=== PATIENT | male | born 1935 | race Caucasian/White ===

== ENCOUNTER 2017-01-27 13:22 | Inpatient (IN) | payer MEDICARE, OTHER ==
[~2017-01-27] VITALS: Ht 172.7 cm; Wt 61.0 kg
--- NOTE | 2017-01-27 13:51 | EKG ---
[address] [address] Test Date: 2017-01-27 Test Time: 13:45:03 Pat Name: ANTONIO MARSH Department: Room: Gender: M Numerologist: NEGRO : 1935 Requested By: TINY APONTE Order Number: [id number] Reading MD: Albert White Measurements Intervals [place] Rate: 67 P: 60 TX: 164 QRS: -64 QRSD: 108 T: 49 QT: 440 QTc: 468 Interpretive Statements SINUS RHYTHM RBBB NON-SPECIFIC ST/T CHANGES LAD Electronically Signed On 02-19-2017 8:57:12 CDT by Albert White
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
[2017-01-27 14:05] LABS: BILIRUBIN,URINE NEG (NEG); CLARITY,URINE CLEAR; COLOR,URINE YELLOW; GLUCOSE,URINE NEG (NEG)
[2017-01-27 14:06] LABS: BACTERIA,URINE 0 /HPF (0-FEW); NITRITE,URINE NEG (NEG); SQUAMOUS EPITHELIAL CELL,UR OCC /LPF; UROBILINOGEN,URINE 0.2 mg/dL (0.2 mg/dL); WBC,URINE 0 /HPF (0-4)
[2017-01-27 14:11] LABS: AMPHETAMINE/METHAMPHETAMINE NEG (NEG); BARBITURATES NEG (NEG); BENZODIAZEPINES NEG (NEG); CANNABINOIDS NEG (NEG); COCAINE NEG (NEG); METHADONE NEG (NEG); OPIATES NEG (NEG); PHENCYCLIDINE NEG (NEG)
[2017-01-27 14:24] LABS: BASO % 0 % (0-3); CALCIUM 9.1 mg/dL (8.5-10.1); EOS # 0.2 x10^3/uL (0.0-0.7); EOS % 2 % (0-3); GFR 71.9; HEMATOCRIT 36.9 % (39.0-53.0); HEMOGLOBIN 11.3 g/dL (13.0-17.5); LYMPH # 3.6 x10^3/uL (1.0-4.8); LYMPH % 32 % (24-48); MEAN CORPUSCULAR HEMOGLOBIN 23 pg (25-35); MEAN CORPUSCULAR HGB CONC 31 g/dL (31-37); MEAN CORPUSCULAR VOLUME 74 fL (79-100); MONO # 0.5 x10^3/uL (0.0-1.1); MONO % 4 % (0-9); NEUT % 62 % (31-73); PLATELET COUNT 320 x10^3/uL (140-400); POTASSIUM 4.8 mmol/L (3.5-5.1); RED BLOOD COUNT 4.96 x10^6/uL (4.30-5.70); RED CELL DISTRIBUTION WIDTH 20.9 % (11.5-14.5); WHITE BLOOD COUNT 11.4 x10^3/uL (4.0-11.0)
--- NOTE | 2017-01-27 14:36 | RAD ---
EXAM: Left hand, 3 views. HISTORY: Pain. COMPARISON: None. FINDINGS: Frontal, lateral and oblique views of the left hand are obtained. There is no acute fracture, dislocation or subluxation. No foreign body is seen. IMPRESSION: No acute osseous finding.
[2017-01-27] MEDS ORDERED: ACETAMINOPHEN 325 MG TABLET PO PRN (15:00)
[2017-01-27] MEDS ORDERED: CLOP75TA27 PO (15:26)
[2017-01-27] MEDS ORDERED: MAG HYDROX/AL HYDROX/SIMETH 30 ML ORAL.SUSP PO PRN (15:30)
[2017-01-27] MEDS ORDERED: METHYL SALICYLATE/MENTHOL TOPICAL OINTMENT 29GM TUBE. TP PRN (15:30)
[2017-01-27] MEDS ORDERED: MAGNESIUM HYDROXIDE 2,400 MG/30 ML ORAL.SUSP. PO PRN (15:30)
[2017-01-27] MEDS ORDERED: FINA5TAB4 PO (15:36)
[2017-01-27] MEDS ORDERED: ASCO10002 PO (15:36)
[2017-01-27] MEDS ORDERED: METO50TA2 PO (15:36)
[2017-01-27] MEDS ORDERED: MECL25TA3 PO (15:39)
[2017-01-27] MEDS ORDERED: CLON0.5T3 PO (15:39)
[2017-01-27] MEDS ORDERED: ESCI10TA10 PO (15:41)
[2017-01-27] MEDS ORDERED: TRAM50TA PO (15:41)
[2017-01-27] MEDS ORDERED: PANT40TA5 PO (15:44)
[2017-01-27] MEDS ORDERED: ONDA4TAB7 PO (15:44)
[2017-01-27] MEDS ORDERED: ACET500T68 PO (15:44)
[2017-01-27] MEDS ORDERED: duoneb NEB (15:52)
[2017-01-27] MEDS ORDERED: VIT D PO (15:52)
[2017-01-27] MEDS ORDERED: CLONAZEPAM 0.5 MG TABLET PO PRN ×2 (16:00)
[2017-01-27] MEDS ORDERED: ACETAMINOPHEN 500 MG TABLET PO PRN (16:00)
[2017-01-27 16:15] VITALS: BP 126/78
[2017-01-27 16:17] LABS: ANISOCYTOSIS MOD; HYPOCHROMIA MOD; PLT ESTIMATE ADEQUATE (ADEQUATE); POLYCHROMASIA SLIGHT
[2017-01-27 16:18] LABS: OVALOCYTES OCC
[2017-01-27] MEDS ORDERED: IPRATRPIUM/ALBUTEROL 0.5/2.5MG 3 ML NEBU. ONE (16:35)
[2017-01-27] MEDS ORDERED: ONDANSETRON ODT 4 MG TAB.RAPDIS PO PRN (16:45)
[2017-01-27] MEDS ORDERED: DUONEB NEB SCH (17:00)
[2017-01-27] MEDS ORDERED: TIMO10DR5 EACHEYE (19:46)
[2017-01-27] MEDS: IPRATRPIUM/ALBUTEROL 0.5/2.5MG 3 ML NEBU. NEB SCH (20:00)
[2017-01-27] MEDS: MECLIZINE 25 MG TABLET PO SCH (20:14)
[2017-01-27] MEDS: PANTOPRAZOLE 40 MG TABLET. PO SCH (20:14)
--- NOTE | 2017-01-27 22:03 | PDOC ---
Exam Davon Demential Exam: Davon Note: Please also refer to the separate dictated note~for this date of service dictated separately.~Patient seen individually. Discussed the patient with Nursing staff reviewed the chart.~Reviewed interim history and current functioning. Reviewed vital signs,~Labs/ Radiology~and current medications noted below. Continue current treatment with the changes noted in the dictated addendum note Assessment: Vital Signs: Vital Signs Date Time Temp Pulse Resp B/P Pulse Ox O2 Delivery O2 Flow Rate FiO2 01/27/17 20:00 97 Room Air 01/27/17 16:15 98.4 67 18 126/78 2.0 Labs: Laboratory Tests Test 01/27/17 13:38 01/27/17 13:42 Urine Collection Type Unknown Urine Color Yellow Urine Clarity Clear Urine pH 6.5 Urine Specific [place] 1.010 Urine Protein Neg (NEG-TRACE) Urine Glucose (UA) Negmg/dL (NEG) Urine Ketones (Stick) Negmg/dL (NEG) Urine Blood Trace (NEG) Urine Nitrite Neg (NEG) Urine Bilirubin Neg (NEG) Urine Urobilinogen Dipstick 0.2mg/dL (0.2 mg/dL) Urine Leukocyte Esterase Neg (NEG) Urine RBC 1-2/HPF (0-2) Urine WBC 0/HPF (0-4) Urine Squamous Epithelial Cells Occ/LPF Urine Bacteria 0/HPF (0-FEW) Urine Mucus Mod/LPF Urine Opiates Screen Neg (NEG) Urine Methadone Screen Neg (NEG) Urine Barbiturates Neg (NEG) Urine Phencyclidine Screen Neg (NEG) Urine Amphetamine/Methamphetamine Neg (NEG) Urine Benzodiazepines Screen Neg (NEG) Urine Cocaine Screen Neg (NEG) Urine Cannabinoids Screen Neg (NEG) Urine Ethyl Alcohol Neg (NEG) White Blood Count 11.4x10^3/uL (4.0-11.0) H Red Blood Count 4.96x10^6/uL (4.30-5.70) Hemoglobin 11.3g/dL (13.0-17.5) L Hematocrit 36.9% (39.0-53.0) L Mean Corpuscular Volume 74fL (79-100) L Mean Corpuscular Hemoglobin 23pg (25-35) L Mean Corpuscular Hemoglobin Concent 31g/dL (31-37) Red Cell Distribution Width 20.9% (11.5-14.5) H Platelet Count 320x10^3/uL (140-400) Neutrophils (%) (Auto) 62% (31-73) Lymphocytes (%) (Auto) 32% (24-48) Monocytes (%) (Auto) 4% (0-9) Eosinophils (%) (Auto) 2% (0-3) Basophils (%) (Auto) 0% (0-3) Neutrophils # (Auto) 7.0x10^3uL (1.8-7.7) Lymphocytes # (Auto) 3.6x10^3/uL (1.0-4.8) Monocytes # (Auto) 0.5x10^3/uL (0.0-1.1) Eosinophils # (Auto) 0.2x10^3/uL (0.0-0.7) Basophils # (Auto) 0.0x10^3/uL (0.0-0.2) Platelet Estimate Adequate (ADEQUATE) Polychromasia Slight Hypochromasia Mod Anisocytosis Mod Ovalocytes Occ Sodium Level 144mmol/L (136-145) Potassium Level 4.8mmol/L (3.5-5.1) Chloride Level 107mmol/L (98-107) Carbon Dioxide Level 30mmol/L (21-32) Anion Gap 7 (6-14) Blood Urea Nitrogen 10mg/dL (8-26) Creatinine 1.0mg/dL (0.7-1.3) Estimated GFR (Cockcroft-Gault) 71.9 Glucose Level 106mg/dL (70-99) H Calcium Level 9.1mg/dL (8.5-10.1) Magnesium Level 2.3mg/dL (1.8-2.4) Troponin I Quantitative < 0.017ng/mL (0-0.055) TJ-Kux-M-Type Natriuretic Peptide 353pg/mL (0-449) Current Medications: Meds: Current Medications Acetaminophen (Tylenol) 650 mg PRN Q6HRS PRN PO PAIN / TEMP; Start 01/27/17 at 15:00; Status Cancel Multi-Ingredient Ointment (Analgesic [place]) 1 aleks PRN QID PRN TP MUSCLE PAIN; Start 01/27/17 at 15:30 Al Hydroxide/Mg Hydroxide (Mylanta Plus Xs) 15 ml PRN AFTMEALHC PRN PO DYSPEPSIA; Start 01/27/17 at 15:30 Magnesium Hydroxide (Milk Of Magnesia) 2,400 mg PRN QHS PRN PO CONSTIPATION; Start 01/27/17 at 15:30 Acetaminophen (Tylenol) 1,000 mg PRN Q6HRS PRN PO PAIN / TEMP; Start 01/27/17 at 16:00 Clonazepam (Klonopin) 0.25 mg PRN Q6HRS PRN PO ANXIETY / AGITATION; Start at 16:00 Clonazepam (Klonopin) 0.5 mg PRN Q6HRS PRN PO ANXIETY / AGITATION; Start at 16:00 Clopidogrel Bisulfate (Plavix) 75 mg DAILY PO ; Start 01/28/17 at 09:00 Escitalopram Oxalate (Lexapro) 10 mg DAILY PO ; Start 01/28/17 at 09:00 Finasteride (Proscar) 5 mg DAILY PO ; Start 01/28/17 at 09:00 Meclizine HCl (Antivert) 25 mg TID PO Last administered on 01/27/17t 20:14; Start 01/27/17 at 21:00 Metoprolol Succinate (Toprol Xl) 50 mg DAILY PO ; Start 01/28/17 at 09:00 Pantoprazole Sodium (Protonix) 40 mg BID PO Last administered on 01/27/17t 20:14 ; Start 01/27/17 at 21:00 Tramadol HCl (Ultram) 50 mg PRN Q6HRS PRN PO PAIN; Start 01/27/17 at 16:00 Ascorbic Acid (Vitamin C) 1,000 mg DAILY PO ; Start 01/28/17 at 09:00 Ondansetron HCl (Zofran Odt) 4 mg PRN Q6HRS PRN PO NAUSEA/VOMITING; Start at 16:45 Non-Formulary Medication 5 mg QID NEB ; Start 01/27/17 at 17:00; Status UNV Vitamin D (Vitamin D3) 400 unit DAILY PO ; Start 01/28/17 at 09:00 Albuterol/ Ipratropium (Duoneb) 3 ml STK-MED ONCE .ROUTE ; Start 01/27/17 at 16: 35; Stop 01/27/17 at 16:36; Status DC Albuterol/ Ipratropium (Duoneb) 3 ml RTQID NEB Last administered on 01/27/17t 20 :00; Start 01/27/17 at 20:00 Timolol Maleate (Timoptic 0.5% Ophth) 1 drop BID OU ; Start 01/28/17 at 09:00 Active Scripts Active Reported Timoptic (Timolol Maleate) 10 Ml Drops 1 Drop EACHEYE BID [duoneb] 5 Mg NEB QID [Vit D3 400units] 400 Units PO Acetaminophen 500 Mg Tablet 1,000 Mg PO PRN Q6HRS PRN Pantoprazole Sodium 40 Mg Tablet.dr 40 Mg PO BID Zofran (Ondansetron Hcl) 4 Mg Tablet 4 Mg PO PRN Q6HRS PRN Tramadol Hcl (Tramadol HCl) 50 Mg Tablet 50 Mg PO PRN Q6HRS PRN Lexapro (Escitalopram Oxalate) 10 Mg Tablet 10 Mg PO DAILY Meclizine Hcl 25 Mg Tablet 25 Mg PO TID Clonazepam 0.5 Mg Tablet 0.25 Mg PO PRN Q6HRS PRN Clonazepam 0.5 Mg Tablet 0.5 Mg PO PRN Q6HRS PRN Vitamin C (Ascorbic Acid) 1,000 Mg Tablet 1,000 Mg PO DAILY Finasteride 5 Mg Tablet 5 Mg PO DAILY Metoprolol Tartrate 50 Mg Tablet 50 Mg PO DAILY Plavix (Clopidogrel Bisulfate) 75 Mg Tablet 75 Mg PO DAILY Diagnosis: Problems: (1) Dementia with behavioral problem (2) Gamekeeper's thumb of left hand JIM MCKEON MD Jan 27, 2017 22:03
[2017-01-27] MEDS: TRAMADOL 50 MG TABLET. PO PRN (23:30)
--- NOTE | 2017-01-28 00:57 | ACF ---
Admission Criteria Forms PSYCHIATRIC DISORDERS Clinical Indications for Inpatient Care (Place 'X' for any and all applicable criteria): Ongoing inpatient care may be needed for ANY ONE of the following(1)(2)(3)(4)(6) (7)(8): [ ]I. Danger to self or others not manageable at lower level of care. [ ]II. Grave disability (eg, inability to perform self care necessary at lower level of care) [ ]III. Agitation or inappropriate behavior interfering with care for primary condition (eg, attempting to discontinue lines or drains prematurely, unable to cooperate with respiratory care) [X]IV. Severe disability or disorder indicated by ALL of the following: [X]a) Severe behavioral health disorder-related symptoms or condition indicated by ANY ONE of the following: [ ]i) Severe problem with cognition, memory, judgment, or impulse control [X]ii) Severe clinical manifestations (eg, hallucinations, delusions, other acute psychotic symptoms, jeremiah, extreme agitation or anxiety) [X]b) Patient management at lower level of care is not feasible until acute intervention or modification is initiated. Extended stay beyond goal length of stay for the primary condition may be indicated when ANY ONE of the following is present: (1)(2)(3)(4): [ ]a) Patient is a danger to self or others and not manageable at lower level of care. [ ]b) Behavior crisis management, including physical or chemical restraints, is required and is not available at a lower level of care. [ ]c) Behavioral symptoms (e.g., agitation, somnolence, inappropriate behavior) are present, and are not manageable at a lower level of care. [ ]d) Patient cannot understand follow-up treatment and crisis plan. [ ]e) Provider and supports are not sufficiently available at lower level of care. [ ]f) Patient cannot participate (e.g., verify absence of plan for harm) and is in needed of monitoring. The original [facility] [employer] content created by [facility] [employer] has been revised. The portions of the content which have been revised are identified through the use of italic text or in bold, and [email or web address] has neither reviewed nor approved the modified material. All other unmodified content is copyright [facility]. Please see references footnoted in the original [facility] edition 2016 Admission Criteria Met?: Yes STEVEN MORA Jan 28, 2017 00:57
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
[2017-01-28] MEDS: IPRATRPIUM/ALBUTEROL 0.5/2.5MG 3 ML NEBU. NEB SCH ×4 (05:14→20:13)
[2017-01-28 06:21] VITALS: BP 127/78
[2017-01-28] MEDS: TIMOLOL 0.5% OPHTH SOLUTION 5ML BOTTLE. OU SCH ×2 (09:36→19:50)
[2017-01-28] MEDS: ESCITALOPRAM 10 MG TABLET. PO SCH (09:36)
[2017-01-28] MEDS: MECLIZINE 25 MG TABLET PO SCH ×3 (09:36→19:47)
[2017-01-28] MEDS: CLOPIDOGREL BISULFATE 75 MG TABLET PO SCH (09:37)
[2017-01-28] MEDS: FINASTERIDE 5 MG TABLET PO SCH (09:37)
[2017-01-28] MEDS: PANTOPRAZOLE 40 MG TABLET. PO SCH ×2 (09:37→19:47)
[2017-01-28] MEDS: CHOLECALCIFEROL (VITAMIN D3) 400 UNIT TABLET PO SCH (09:39)
[2017-01-28] MEDS: METOPROLOL SUCC 24HR ER 50 MG TAB.ER.24H. PO SCH (09:39)
[2017-01-28] MEDS: ASCORBIC ACID 500 MG TABLET PO SCH (09:39)
[2017-01-28] MEDS: TRAMADOL 50 MG TABLET. PO PRN ×2 (09:50→21:14)
[2017-01-28 12:09] LABS: T3 TOTAL 125 ng/dL (71-180); THYROXINE 7.7 ug/dL (4.5-12.0)
[2017-01-28 12:19] LABS: IRON,SERUM 23 ug/dL (65-175)
[2017-01-28 12:24] LABS: THYROID STIM HORMONE (TSH) 0.956 uIU/mL (0.358-3.740)
[2017-01-28 15:49] VITALS: BP 108/65
--- NOTE | 2017-01-28 20:44 | PDOC ---
Exam Davon Demential Exam: Davon Note: Please also refer to the separate dictated note~for this date of service dictated separately.~Patient seen individually. Discussed the patient with Nursing staff reviewed the chart.~Reviewed interim history and current functioning. Reviewed vital signs,~Labs/ Radiology~and current medications noted below. Continue current treatment with the changes noted in the dictated addendum note Assessment: Vital Signs: Vital Signs Date Time Temp Pulse Resp B/P Pulse Ox O2 Delivery O2 Flow Rate FiO2 01/28/17 20:15 99 Nasal Cannula 2.0 01/28/17 15:49 97.9 71 19 108/65 I&O Intake and Output 01/28/17 07:00 Intake Total 60 ml Balance 60 ml Intake Oral 60 ml Current Medications: Meds: Current Medications Acetaminophen (Tylenol) 650 mg PRN Q6HRS PRN PO PAIN / TEMP; Start 01/27/17 at 15:00; Status Cancel Multi-Ingredient Ointment (Analgesic [place]) 1 aleks PRN QID PRN TP MUSCLE PAIN; Start 01/27/17 at 15:30 Al Hydroxide/Mg Hydroxide (Mylanta Plus Xs) 15 ml PRN AFTMEALHC PRN PO DYSPEPSIA; Start 01/27/17 at 15:30 Magnesium Hydroxide (Milk Of Magnesia) 2,400 mg PRN QHS PRN PO CONSTIPATION; Start 01/27/17 at 15:30 Acetaminophen (Tylenol) 1,000 mg PRN Q6HRS PRN PO PAIN / TEMP; Start 01/27/17 at 16:00 Clonazepam (Klonopin) 0.25 mg PRN Q6HRS PRN PO ANXIETY / AGITATION; Start at 16:00 Clonazepam (Klonopin) 0.5 mg PRN Q6HRS PRN PO ANXIETY / AGITATION; Start at 16:00 Clopidogrel Bisulfate (Plavix) 75 mg DAILY PO Last administered on 01/28/17 09: 37; Start 01/28/17 at 09:00 Escitalopram Oxalate (Lexapro) 10 mg DAILY PO Last administered on 01/28/17 09: 36; Start 01/28/17 at 09:00 Finasteride (Proscar) 5 mg DAILY PO Last administered on 01/28/17 09:37; Start 01/28/17 at 09:00 Meclizine HCl (Antivert) 25 mg TID PO Last administered on 01/28/17 19:47; Start 01/27/17 at 21:00 Metoprolol Succinate (Toprol Xl) 50 mg DAILY PO Last administered on 01/28/17 09:39; Start 01/28/17 at 09:00 Pantoprazole Sodium (Protonix) 40 mg BID PO Last administered on 01/28/17 19:47 ; Start 01/27/17 at 21:00 Tramadol HCl (Ultram) 50 mg PRN Q6HRS PRN PO PAIN Last administered on 09:50; Start 01/27/17 at 16:00 Ascorbic Acid (Vitamin C) 1,000 mg DAILY PO Last administered on 01/28/17 09:39 ; Start 01/28/17 at 09:00 Ondansetron HCl (Zofran Odt) 4 mg PRN Q6HRS PRN PO NAUSEA/VOMITING; Start at 16:45 Non-Formulary Medication 5 mg QID NEB ; Start 01/27/17 at 17:00; Status UNV Vitamin D (Vitamin D3) 400 unit DAILY PO Last administered on 01/28/17 09:39; Start 01/28/17 at 09:00 Albuterol/ Ipratropium (Duoneb) 3 ml STK-MED ONCE .ROUTE ; Start 01/27/17 at 16: 35; Stop 01/27/17 at 16:36; Status DC Albuterol/ Ipratropium (Duoneb) 3 ml RTQID NEB Last administered on 01/28/17 20 :13; Start 01/27/17 at 20:00 Timolol Maleate (Timoptic 0.5% Oph) 1 drop BID OU Last administered on 19:50; Start 01/28/17 at 09:00 Active Scripts Active Reported Timoptic (Timolol Maleate) 10 Ml Drops 1 Drop EACHEYE BID [duoneb] 5 Mg NEB QID [Vit D3 400units] 400 Units PO Acetaminophen 500 Mg Tablet 1,000 Mg PO PRN Q6HRS PRN Pantoprazole Sodium 40 Mg Tablet.dr 40 Mg PO BID Zofran (Ondansetron Hcl) 4 Mg Tablet 4 Mg PO PRN Q6HRS PRN Tramadol Hcl (Tramadol HCl) 50 Mg Tablet 50 Mg PO PRN Q6HRS PRN Lexapro (Escitalopram Oxalate) 10 Mg Tablet 10 Mg PO DAILY Meclizine Hcl 25 Mg Tablet 25 Mg PO TID Clonazepam 0.5 Mg Tablet 0.25 Mg PO PRN Q6HRS PRN Clonazepam 0.5 Mg Tablet 0.5 Mg PO PRN Q6HRS PRN Vitamin C (Ascorbic Acid) 1,000 Mg Tablet 1,000 Mg PO DAILY Finasteride 5 Mg Tablet 5 Mg PO DAILY Metoprolol Tartrate 50 Mg Tablet 50 Mg PO DAILY Plavix (Clopidogrel Bisulfate) 75 Mg Tablet 75 Mg PO DAILY Diagnosis: Problems: (1) Dementia with behavioral problem (2) Gamekeeper's thumb of left hand JIM MCKEON MD Jan 28, 2017 20:43
--- NOTE | 2017-01-28 22:20 | HP ---
ADMIT DATE: 01/27/2017 PSYCHIATRIC ADMISSION HISTORY/EVALUATION IDENTIFYING DATA: The patient is an 81-year-old male referred to us from home by his primary care physician, Dr. Clarke Aguirre in [facility] on account of worsening hallucinations, which are ordered ____ and visual worsening anxiety over the last 30 days, worsening mood, vacillation, visual misperceptions, anxiety, agitation, and having failed outpatient psychiatric interventions. 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 The patient was seen individually evening of 01/28/2017 for this assessment. Reviewed records from intermediate, current and past information ER records. CHIEF COMPLAINT: "At sometimes he sees floor moving or the wall moving or the table moving. It makes me upset." HISTORY OF PRESENT ILLNESS: The patient has had a history of CVA in 2003 with the diagnosis of dementia. More recently he has been living at home, having ____ visual hallucinations, anxiety over the past 30 days with marked mood vacillation, failure of outpatient psychiatric interventions. No clear history of bipolar disorder. PAST PSYCHIATRIC HISTORY: As above. MEDICAL HISTORY: Status post cerebrovascular accident in 2003, COPD, history of duodenal ulcer, GERD, lung nodule, BPH, hyperlipidemia, leukemia, and CHF. DRUG ALLERGIES: Negative. CODE STATUS: He is a DNR status. The patient was seen in the [facility] Emergency Room prior to admission found to medically stable to be on our unit. CURRENT PSYCHOTROPICS: Lexapro 10 mg a day, Klonopin 0.25 mg q .6 hours p.r.n. anxiety. FAMILY HISTORY: Noncontributory. SOCIAL HISTORY: The patient states he is to use excessive alcohol mostly beer in the past up to 18 cans a day, but denies any DUIs or delirium in the past. No street drug abuse. MENTAL STATUS EXAM: The patient was seen individually evening of 01/28/2017. He was aware of the date, the year, where he was, anxious, restless. Speech is coherent, abstraction fair, computation impaired, language function intact. Attention span short. Short-term memory does have some deficit, but he is reasonably oriented. No active suicidal or homicidal ideation. PHYSICAL EXAMINATION: VITAL SIGNS: Temperature 97.9, pulse 71, BP 108/65. REVIEW OF SYSTEMS: Ambulation impaired. No CV, , pulmonary, eye system symptoms on review. IMPRESSION: Psychotic disorder, unspecified; major depressive disorder with psychotic features; major neurocognitive disorder, early vascular with depression, delusions; anxiety disorder, unspecified; impulse control disorder, unspecified. Rest diagnoses as above. PLAN: Admit to the geropsychiatry unit at [facility]. I will see the patient daily individually from a psychiatric standpoint and medical followup with Dr. Murphy/Dr. Lee. Continue the patient on his current psychotropics, observe baseline then we will adjust psychotropics as clinically indicated. MAN Angelica MCKEON MD DR: JUAN/betsy JOB#: [id number] / [id number]
[2017-01-29 00:08] LABS: HEMOGLOBIN A1C 5.5 % (4.8-5.6)
[2017-01-29] MEDS: IPRATRPIUM/ALBUTEROL 0.5/2.5MG 3 ML NEBU. NEB SCH ×4 (04:51→19:32)
[2017-01-29 06:08] LABS: RPR REFLEX Non Reactive (Non Reactive)
[2017-01-29 06:42] VITALS: BP 127/71
[2017-01-29] MEDS: ASCORBIC ACID 500 MG TABLET PO SCH (09:51)
[2017-01-29] MEDS: CHOLECALCIFEROL (VITAMIN D3) 400 UNIT TABLET PO SCH (09:51)
[2017-01-29] MEDS: CLOPIDOGREL BISULFATE 75 MG TABLET PO SCH (09:51)
[2017-01-29] MEDS: PANTOPRAZOLE 40 MG TABLET. PO SCH ×2 (09:51→19:56)
[2017-01-29] MEDS: FINASTERIDE 5 MG TABLET PO SCH (09:51)
[2017-01-29] MEDS: METOPROLOL SUCC 24HR ER 50 MG TAB.ER.24H. PO SCH (09:52)
[2017-01-29] MEDS: MECLIZINE 25 MG TABLET PO SCH ×3 (09:52→19:55)
[2017-01-29] MEDS: ESCITALOPRAM 10 MG TABLET. PO SCH (09:52)
[2017-01-29] MEDS: TIMOLOL 0.5% OPHTH SOLUTION 5ML BOTTLE. OU SCH ×2 (09:55→19:56)
[2017-01-29 16:52] VITALS: BP 126/70
[2017-01-29] MEDS: TRAMADOL 50 MG TABLET. PO PRN (20:00)
[2017-01-29] MEDS ORDERED: QUEtiapine 25 MG TABLET. PO SCH (21:00)
--- NOTE | 2017-01-29 21:10 | PDOC ---
Exam Davon Demential Exam: Davon Note: Please also refer to the separate dictated note~for this date of service dictated separately.~Patient seen individually. Discussed the patient with Nursing staff reviewed the chart.~Reviewed interim history and current functioning. Reviewed vital signs,~Labs/ Radiology~and current medications noted below. Continue current treatment with the changes noted in the dictated addendum note Assessment: Vital Signs: Vital Signs Date Time Temp Pulse Resp B/P Pulse Ox O2 Delivery O2 Flow Rate FiO2 01/29/17 21:00 18 100 Room Air 01/29/17 19:33 2.0 01/29/17 16:52 98.4 66 126/70 I&O Intake and Output 01/29/17 07:00 Intake Total 720 ml Balance 720 ml Intake Oral 720 ml Current Medications: Meds: Current Medications Acetaminophen (Tylenol) 650 mg PRN Q6HRS PRN PO PAIN / TEMP; Start 01/27/17 at 15:00; Status Cancel Multi-Ingredient Ointment (Analgesic [place]) 1 aleks PRN QID PRN TP MUSCLE PAIN; Start 01/27/17 at 15:30 Al Hydroxide/Mg Hydroxide (Mylanta Plus Xs) 15 ml PRN AFTMEALHC PRN PO DYSPEPSIA; Start 01/27/17 at 15:30 Magnesium Hydroxide (Milk Of Magnesia) 2,400 mg PRN QHS PRN PO CONSTIPATION; Start 01/27/17 at 15:30 Acetaminophen (Tylenol) 1,000 mg PRN Q6HRS PRN PO PAIN / TEMP; Start 01/27/17 at 16:00 Clonazepam (Klonopin) 0.25 mg PRN Q6HRS PRN PO ANXIETY / AGITATION; Start at 16:00 Clonazepam (Klonopin) 0.5 mg PRN Q6HRS PRN PO ANXIETY / AGITATION; Start at 16:00 Clopidogrel Bisulfate (Plavix) 75 mg DAILY PO Last administered on 01/29/17 09: 51; Start 01/28/17 at 09:00 Escitalopram Oxalate (Lexapro) 10 mg DAILY PO Last administered on 01/29/17 09: 52; Start 01/28/17 at 09:00 Finasteride (Proscar) 5 mg DAILY PO Last administered on 01/29/17 09:51; Start 01/28/17 at 09:00 Meclizine HCl (Antivert) 25 mg TID PO Last administered on 01/29/17 19:55; Start 01/27/17 at 21:00 Metoprolol Succinate (Toprol Xl) 50 mg DAILY PO Last administered on 01/29/17 09:52; Start 01/28/17 at 09:00 Pantoprazole Sodium (Protonix) 40 mg BID PO Last administered on 01/29/17 19:56 ; Start 01/27/17 at 21:00 Tramadol HCl (Ultram) 50 mg PRN Q6HRS PRN PO PAIN Last administered on 20:00; Start 01/27/17 at 16:00 Ascorbic Acid (Vitamin C) 1,000 mg DAILY PO Last administered on 01/29/17 09:51 ; Start 01/28/17 at 09:00 Ondansetron HCl (Zofran Odt) 4 mg PRN Q6HRS PRN PO NAUSEA/VOMITING; Start at 16:45 Non-Formulary Medication 5 mg QID NEB ; Start 01/27/17 at 17:00; Status UNV Vitamin D (Vitamin D3) 400 unit DAILY PO Last administered on 01/29/17 09:51; Start 01/28/17 at 09:00 Albuterol/ Ipratropium (Duoneb) 3 ml STK-MED ONCE .ROUTE ; Start 01/27/17 at 16: 35; Stop 01/27/17 at 16:36; Status DC Albuterol/ Ipratropium (Duoneb) 3 ml RTQID NEB Last administered on 01/29/17 19 :32; Start 01/27/17 at 20:00 Timolol Maleate (Timoptic 0.5% Ophth) 1 drop BID OU Last administered on 19:56; Start 01/28/17 at 09:00 Quetiapine Fumarate (SEROquel) 12.5 mg QHS PO Last administered on 01/29/17 19: 55; Start 01/29/17 at 21:00 Active Scripts Active Reported Timoptic (Timolol Maleate) 10 Ml Drops 1 Drop EACHEYE BID [duoneb] 5 Mg NEB QID [Vit D3 400units] 400 Units PO Acetaminophen 500 Mg Tablet 1,000 Mg PO PRN Q6HRS PRN Pantoprazole Sodium 40 Mg Tablet.dr 40 Mg PO BID Zofran (Ondansetron Hcl) 4 Mg Tablet 4 Mg PO PRN Q6HRS PRN Tramadol Hcl (Tramadol HCl) 50 Mg Tablet 50 Mg PO PRN Q6HRS PRN Lexapro (Escitalopram Oxalate) 10 Mg Tablet 10 Mg PO DAILY Meclizine Hcl 25 Mg Tablet 25 Mg PO TID Clonazepam 0.5 Mg Tablet 0.25 Mg PO PRN Q6HRS PRN Clonazepam 0.5 Mg Tablet 0.5 Mg PO PRN Q6HRS PRN Vitamin C (Ascorbic Acid) 1,000 Mg Tablet 1,000 Mg PO DAILY Finasteride 5 Mg Tablet 5 Mg PO DAILY Metoprolol Tartrate 50 Mg Tablet 50 Mg PO DAILY Plavix (Clopidogrel Bisulfate) 75 Mg Tablet 75 Mg PO DAILY Diagnosis: Problems: (1) Dementia with behavioral problem (2) Gamekeeper's thumb of left hand JIM MCKEON MD Jan 29, 2017 21:10
[2017-01-30 05:54] VITALS: BP 130/72
[2017-01-30] MEDS: TRAMADOL 50 MG TABLET. PO PRN ×3 (05:56→20:58)
[2017-01-30] MEDS: IPRATRPIUM/ALBUTEROL 0.5/2.5MG 3 ML NEBU. NEB SCH ×4 (06:19→21:58)
[2017-01-30] MEDS: CHOLECALCIFEROL (VITAMIN D3) 400 UNIT TABLET PO SCH (09:00)
[2017-01-30] MEDS: TIMOLOL 0.5% OPHTH SOLUTION 5ML BOTTLE. OU SCH ×2 (09:54→20:57)
[2017-01-30] MEDS: ASCORBIC ACID 500 MG TABLET PO SCH (09:56)
[2017-01-30] MEDS: MECLIZINE 25 MG TABLET PO SCH ×3 (09:56→20:57)
[2017-01-30] MEDS: FINASTERIDE 5 MG TABLET PO SCH (09:56)
[2017-01-30] MEDS: METOPROLOL SUCC 24HR ER 50 MG TAB.ER.24H. PO SCH (09:56)
[2017-01-30] MEDS: ESCITALOPRAM 10 MG TABLET. PO SCH (09:56)
[2017-01-30] MEDS: CLOPIDOGREL BISULFATE 75 MG TABLET PO SCH (09:56)
[2017-01-30] MEDS: PANTOPRAZOLE 40 MG TABLET. PO SCH ×2 (09:58→20:57)
[2017-01-30] MEDS ORDERED: CYANOCOBALAMIN (VITAMIN B-12) 1,000 MCG/ML VIAL IM SCH (10:30)
--- NOTE | 2017-01-30 10:50 | RAD ---
CT head without contrast History: Altered mental status, pain at base of skull. Comparison: None. Procedure: Axial images are obtained of the head from the skull base through the vertex without IV contrast. One or more of the following individualized dose reduction techniques were utilized for the study: Automated exposure control Adjustment of mA and/or kV according to patient's size Use of iterative reconstruction technique. Findings: There is a moderate focus of encephalomalacia and gliosis primarily centered at the right parietal lobe but also involving lateral aspect of the right occipital lobe, compatible with old infarction in posterior division right MCA territory. There is compensatory dilatation of the right lateral ventricle. No mass-effect, intracranial mass, midline shift, hemorrhage or obvious acute infarction is identified. Basilar cisterns are patent. Bone windows demonstrate no significant calvarial abnormality. There is mild thickening of the right maxillary sinus. Impression: 1. No acute intracranial process. Please note that CT can be relatively insensitive to acute ischemic infarction for up to 24 hours after symptom onset. 2. 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
[2017-01-30 11:55] LABS: BASO % 0 % (0-3); EOS # 0.2 x10^3/uL (0.0-0.7); EOS % 2 % (0-3); HEMOGLOBIN 10.9 g/dL (13.0-17.5); LYMPH # 4.3 x10^3/uL (1.0-4.8); LYMPH % 33 % (24-48); MEAN CORPUSCULAR HEMOGLOBIN 23 pg (25-35); MEAN CORPUSCULAR HGB CONC 30 g/dL (31-37); MEAN CORPUSCULAR VOLUME 76 fL (79-100); MONO # 0.6 x10^3/uL (0.0-1.1); MONO % 4 % (0-9); NEUT # 7.8 x10^3uL (1.8-7.7); NEUT % 61 % (31-73); PLATELET COUNT 358 x10^3/uL (140-400); RED BLOOD COUNT 4.76 x10^6/uL (4.30-5.70); WHITE BLOOD COUNT 12.8 x10^3/uL (4.0-11.0)
[2017-01-30] MEDS: PRENATAL MULTIVITAMIN TABLET. PO SCH ×2 (12:15→13:04)
[2017-01-30 16:20] VITALS: BP 163/80
[2017-01-30] MEDS: QUEtiapine 25 MG TABLET. PO SCH (20:57)
--- NOTE | 2017-01-30 21:08 | PDOC ---
Exam Davon Demential Exam: Davon Note: Please also refer to the separate dictated note~for this date of service dictated separately.~Patient seen individually. Discussed the patient with Nursing staff reviewed the chart.~Reviewed interim history and current functioning. Reviewed vital signs,~Labs/ Radiology~and current medications noted below. Continue current treatment with the changes noted in the dictated addendum note Assessment: Vital Signs: Vital Signs Date Time Temp Pulse Resp B/P Pulse Ox O2 Delivery O2 Flow Rate FiO2 01/30/17 20:58 18 99 Room Air 01/30/17 16:20 98.1 80 163/80 01/30/17 15:48 2.0 I&O Intake and Output 01/30/17 06:59 Intake Total 770 ml Balance 770 ml Intake Oral 770 ml # Voids 2 Labs: Laboratory Tests Test 01/30/17 11:40 White Blood Count 12.8x10^3/uL (4.0-11.0) H Red Blood Count 4.76x10^6/uL (4.30-5.70) Hemoglobin 10.9g/dL (13.0-17.5) L Hematocrit 36.0% (39.0-53.0) L Mean Corpuscular Volume 76fL (79-100) L Mean Corpuscular Hemoglobin 23pg (25-35) L Mean Corpuscular Hemoglobin Concent 30g/dL (31-37) L Red Cell Distribution Width 21.0% (11.5-14.5) H Platelet Count 358x10^3/uL (140-400) Neutrophils (%) (Auto) 61% (31-73) Lymphocytes (%) (Auto) 33% (24-48) Monocytes (%) (Auto) 4% (0-9) Eosinophils (%) (Auto) 2% (0-3) Basophils (%) (Auto) 0% (0-3) Neutrophils # (Auto) 7.8x10^3uL (1.8-7.7) H Lymphocytes # (Auto) 4.3x10^3/uL (1.0-4.8) Monocytes # (Auto) 0.6x10^3/uL (0.0-1.1) Eosinophils # (Auto) 0.2x10^3/uL (0.0-0.7) Basophils # (Auto) 0.0x10^3/uL (0.0-0.2) Current Medications: Meds: Current Medications Acetaminophen (Tylenol) 650 mg PRN Q6HRS PRN PO PAIN / TEMP; Start 01/27/17 at 15:00; Status Cancel Multi-Ingredient Ointment (Analgesic [place]) 1 aleks PRN QID PRN TP MUSCLE PAIN; Start 01/27/17 at 15:30 Al Hydroxide/Mg Hydroxide (Mylanta Plus Xs) 15 ml PRN AFTMEALHC PRN PO DYSPEPSIA; Start 01/27/17 at 15:30 Magnesium Hydroxide (Milk Of Magnesia) 2,400 mg PRN QHS PRN PO CONSTIPATION Last administered on 01/30/17 13:05; Start 01/27/17 at 15:30 Acetaminophen (Tylenol) 1,000 mg PRN Q6HRS PRN PO PAIN / TEMP; Start 01/27/17 at 16:00 Clonazepam (Klonopin) 0.25 mg PRN Q6HRS PRN PO ANXIETY / AGITATION; Start at 16:00 Clonazepam (Klonopin) 0.5 mg PRN Q6HRS PRN PO ANXIETY / AGITATION; Start at 16:00 Clopidogrel Bisulfate (Plavix) 75 mg DAILY PO Last administered on 01/30/17 09: 56; Start 01/28/17 at 09:00 Escitalopram Oxalate (Lexapro) 10 mg DAILY PO Last administered on 01/30/17 09: 56; Start 01/28/17 at 09:00 Finasteride (Proscar) 5 mg DAILY PO Last administered on 01/30/17 09:56; Start 01/28/17 at 09:00 Meclizine HCl (Antivert) 25 mg TID PO Last administered on 01/30/17 20:57; Start 01/27/17 at 21:00 Metoprolol Succinate (Toprol Xl) 50 mg DAILY PO Last administered on 01/30/17 09:56; Start 01/28/17 at 09:00 Pantoprazole Sodium (Protonix) 40 mg BID PO Last administered on 01/30/17 20:57 ; Start 01/27/17 at 21:00 Tramadol HCl (Ultram) 50 mg PRN Q6HRS PRN PO PAIN Last administered on 20:58; Start 01/27/17 at 16:00 Ascorbic Acid (Vitamin C) 1,000 mg DAILY PO Last administered on 01/30/17 09:56 ; Start 01/28/17 at 09:00 Ondansetron HCl (Zofran Odt) 4 mg PRN Q6HRS PRN PO NAUSEA/VOMITING; Start at 16:45 Non-Formulary Medication 5 mg QID NEB ; Start 01/27/17 at 17:00; Status UNV Vitamin D (Vitamin D3) 400 unit DAILY PO Last administered on 01/29/17 09:51; Start 01/28/17 at 09:00; Stop 01/30/17 at 09:52; Status DC Albuterol/ Ipratropium (Duoneb) 3 ml STK-MED ONCE .ROUTE ; Start 01/27/17 at 16: 35; Stop 01/27/17 at 16:36; Status DC Albuterol/ Ipratropium (Duoneb) 3 ml RTQID NEB Last administered on 01/30/17 15 :47; Start 01/27/17 at 20:00 Timolol Maleate (Timoptic 0.5% Oph) 1 drop BID OU Last administered on 20:57; Start 01/28/17 at 09:00 Quetiapine Fumarate (SEROquel) 12.5 mg QHS PO Last administered on 01/29/17 19: 55; Start 01/29/17 at 21:00; Stop 01/30/17 at 19:03; Status DC Vitamin D (Vitamin D3) 1,000 unit DAILY PO Last administered on 01/30/17 09:57 ; Start 01/31/17 at 09:00; Stop 01/31/17 at 09:00; Status DC Cyanocobalamin (Vitamin B-12) 1,000 mcg [id number] IM Last administered on 12:15; Start 01/30/17 at 10:30 Prenat Multivit/ [place]/Iron/Folic Ac (Multivitamin ) 1 tab DAILYBFRLUN PO Last administered on 01/30/17 13:04; Start 01/30/17 at 11:30 Vitamin D (Vitamin D3) 1,000 unit DAILY PO ; Start 01/31/17 at 09:00 Quetiapine Fumarate (SEROquel) 25 mg QHS PO Last administered on 01/30/17t 20:57 ; Start 01/30/17 at 21:00 Active Scripts Active Reported Timoptic (Timolol Maleate) 10 Ml Drops 1 Drop EACHEYE BID [duoneb] 5 Mg NEB QID [Vit D3 400units] 400 Units PO Acetaminophen 500 Mg Tablet 1,000 Mg PO PRN Q6HRS PRN Pantoprazole Sodium 40 Mg Tablet.dr 40 Mg PO BID Zofran (Ondansetron Hcl) 4 Mg Tablet 4 Mg PO PRN Q6HRS PRN Tramadol Hcl (Tramadol HCl) 50 Mg Tablet 50 Mg PO PRN Q6HRS PRN Lexapro (Escitalopram Oxalate) 10 Mg Tablet 10 Mg PO DAILY Meclizine Hcl 25 Mg Tablet 25 Mg PO TID Clonazepam 0.5 Mg Tablet 0.25 Mg PO PRN Q6HRS PRN Clonazepam 0.5 Mg Tablet 0.5 Mg PO PRN Q6HRS PRN Vitamin C (Ascorbic Acid) 1,000 Mg Tablet 1,000 Mg PO DAILY Finasteride 5 Mg Tablet 5 Mg PO DAILY Metoprolol Tartrate 50 Mg Tablet 50 Mg PO DAILY Plavix (Clopidogrel Bisulfate) 75 Mg Tablet 75 Mg PO DAILY Diagnosis: Problems: (1) Dementia with behavioral problem (2) Gamekeeper's thumb of left hand JIM MCKEON MD Jan 30, 2017 21:08
--- NOTE | 2017-01-31 03:24 | PN ---
DATE: 01/29/2017 PSYCHIATRIC PROGRESS NOTE This is a late entry for date of service, 01/29/2017. SUBJECTIVE: Per nursing report, the patient has been isolated. We will do a CT head if one has not been done recently. REVIEW OF SYSTEMS: No CV, , pulmonary, eye system symptoms on review. Reliability varies. Gait unsteady. MENTAL STATUS EXAM: Oriented to himself. Insight is reasonable. Judgment intact to standard questioning. He denies active hallucinations. He does admit to some visual misperceptions. No suicidal or homicidal ideation. Mood somewhat dysphoric, anxious. LABORATORY DATA: Reviewed. IMPRESSION: Psychotic disorder, unspecified; major depressive disorder with psychotic features; anxiety disorder, unspecified; major neurocognitive disorder, early vascular with depression, delusions. PLAN: Continue Lexapro 10 mg a day, start Seroquel 12.5 mg at bedtime, Klonopin p.r.n. Adjust further as clinically indicated. JIM MCKEON MD DR: JUAN/betsy JOB#: [id number] / [id number]
[2017-01-31 05:29] VITALS: BP 122/57
[2017-01-31] MEDS: IPRATRPIUM/ALBUTEROL 0.5/2.5MG 3 ML NEBU. NEB SCH ×3 (05:30→15:55)
[2017-01-31] MEDS: CHOLECALCIFEROL (VITAMIN D3) 1,000 UNIT TABLET PO SCH (09:00)
[2017-01-31] MEDS ORDERED: CHOLECALCIFEROL (VITAMIN D3) 400 UNIT TABLET PO SCH (09:00)
[2017-01-31] MEDS: MECLIZINE 25 MG TABLET PO SCH ×3 (09:43→20:38)
[2017-01-31] MEDS: FINASTERIDE 5 MG TABLET PO SCH (09:43)
[2017-01-31] MEDS: PANTOPRAZOLE 40 MG TABLET. PO SCH ×2 (09:43→20:38)
[2017-01-31] MEDS: ESCITALOPRAM 10 MG TABLET. PO SCH (09:43)
[2017-01-31] MEDS: ASCORBIC ACID 500 MG TABLET PO SCH (09:44)
[2017-01-31] MEDS: CLOPIDOGREL BISULFATE 75 MG TABLET PO SCH (09:44)
[2017-01-31] MEDS: TIMOLOL 0.5% OPHTH SOLUTION 5ML BOTTLE. OU SCH ×2 (09:50→20:39)
[2017-01-31] MEDS: METOPROLOL SUCC 24HR ER 50 MG TAB.ER.24H. PO SCH (10:02)
[2017-01-31 16:28] VITALS: BP 128/79
[2017-01-31] MEDS: TRAMADOL 50 MG TABLET. PO PRN (18:03)
[2017-01-31] MEDS: QUEtiapine 25 MG TABLET. PO SCH (20:38)
--- NOTE | 2017-01-31 21:12 | PDOC ---
Exam Davon Demential Exam: Davon Note: Please also refer to the separate dictated note~for this date of service dictated separately.~Patient seen individually. Discussed the patient with Nursing staff reviewed the chart.~Reviewed interim history and current functioning. Reviewed vital signs,~Labs/ Radiology~and current medications noted below. Continue current treatment with the changes noted in the dictated addendum note Assessment: Vital Signs: Vital Signs Date Time Temp Pulse Resp B/P Pulse Ox O2 Delivery O2 Flow Rate FiO2 01/31/17 19:03 18 97 Nasal Cannula 2.0 01/31/17 16:28 98.6 89 128/79 I&O Intake and Output 01/31/17 07:00 Intake Total 960 ml Balance 960 ml Intake Oral 960 ml # Voids 2 Current Medications: Meds: Current Medications Acetaminophen (Tylenol) 650 mg PRN Q6HRS PRN PO PAIN / TEMP; Start 01/27/17 at 15:00; Status Cancel Multi-Ingredient Ointment (Analgesic [place]) 1 aleks PRN QID PRN TP MUSCLE PAIN; Start 01/27/17 at 15:30 Al Hydroxide/Mg Hydroxide (Mylanta Plus Xs) 15 ml PRN AFTMEALHC PRN PO DYSPEPSIA; Start 01/27/17 at 15:30 Magnesium Hydroxide (Milk Of Magnesia) 2,400 mg PRN QHS PRN PO CONSTIPATION Last administered on 01/30/17 13:05; Start 01/27/17 at 15:30 Acetaminophen (Tylenol) 1,000 mg PRN Q6HRS PRN PO PAIN / TEMP; Start 01/27/17 at 16:00 Clonazepam (Klonopin) 0.25 mg PRN Q6HRS PRN PO ANXIETY / AGITATION; Start at 16:00 Clonazepam (Klonopin) 0.5 mg PRN Q6HRS PRN PO ANXIETY / AGITATION; Start at 16:00 Clopidogrel Bisulfate (Plavix) 75 mg DAILY PO Last administered on 01/31/17 09: 44; Start 01/28/17 at 09:00 Escitalopram Oxalate (Lexapro) 10 mg DAILY PO Last administered on 01/31/17 09: 43; Start 01/28/17 at 09:00 Finasteride (Proscar) 5 mg DAILY PO Last administered on 01/31/17 09:43; Start 01/28/17 at 09:00 Meclizine HCl (Antivert) 25 mg TID PO Last administered on 01/31/17 20:38; Start 01/27/17 at 21:00 Metoprolol Succinate (Toprol Xl) 50 mg DAILY PO Last administered on 01/31/17 10:02; Start 01/28/17 at 09:00 Pantoprazole Sodium (Protonix) 40 mg BID PO Last administered on 01/31/17 20:38 ; Start 01/27/17 at 21:00 Tramadol HCl (Ultram) 50 mg PRN Q6HRS PRN PO PAIN Last administered on 18:03; Start 01/27/17 at 16:00 Ascorbic Acid (Vitamin C) 1,000 mg DAILY PO Last administered on 01/31/17 09:44 ; Start 01/28/17 at 09:00 Ondansetron HCl (Zofran Odt) 4 mg PRN Q6HRS PRN PO NAUSEA/VOMITING; Start at 16:45 Non-Formulary Medication 5 mg QID NEB ; Start 01/27/17 at 17:00; Status UNV Vitamin D (Vitamin D3) 400 unit DAILY PO Last administered on 01/29/17 09:51; Start 01/28/17 at 09:00; Stop 01/30/17 at 09:52; Status DC Albuterol/ Ipratropium (Duoneb) 3 ml STK-MED ONCE .ROUTE ; Start 01/27/17 at 16: 35; Stop 01/27/17 at 16:36; Status DC Albuterol/ Ipratropium (Duoneb) 3 ml RTQID NEB Last administered on 01/31/17 15 :55; Start 01/27/17 at 20:00 Timolol Maleate (Timoptic 0.5% Oph) 1 drop BID OU Last administered on 20:39; Start 01/28/17 at 09:00 Quetiapine Fumarate (SEROquel) 12.5 mg QHS PO Last administered on 01/29/17 19: 55; Start 01/29/17 at 21:00; Stop 01/30/17 at 19:03; Status DC Vitamin D (Vitamin D3) 1,000 unit DAILY PO Last administered on 01/30/17 09:57 ; Start 01/31/17 at 09:00; Stop 01/31/17 at 09:00; Status DC Cyanocobalamin (Vitamin B-12) 1,000 mcg [id number] IM Last administered on 12:15; Start 01/30/17 at 10:30 Prenat Multivit/ [place]/Iron/Folic Ac (Multivitamin ) 1 tab DAILYBFRLUN PO Last administered on 01/30/17 13:04; Start 01/30/17 at 11:30 Vitamin D (Vitamin D3) 1,000 unit DAILY PO Last administered on 01/31/17 09:00 ; Start 01/31/17 at 09:00 Quetiapine Fumarate (SEROquel) 25 mg QHS PO Last administered on 01/31/17 20:38 ; Start 01/30/17 at 21:00 Active Scripts Active Reported Timoptic (Timolol Maleate) 10 Ml Drops 1 Drop EACHEYE BID [duoneb] 5 Mg NEB QID [Vit D3 400units] 400 Units PO Acetaminophen 500 Mg Tablet 1,000 Mg PO PRN Q6HRS PRN Pantoprazole Sodium 40 Mg Tablet.dr 40 Mg PO BID Zofran (Ondansetron Hcl) 4 Mg Tablet 4 Mg PO PRN Q6HRS PRN Tramadol Hcl (Tramadol HCl) 50 Mg Tablet 50 Mg PO PRN Q6HRS PRN Lexapro (Escitalopram Oxalate) 10 Mg Tablet 10 Mg PO DAILY Meclizine Hcl 25 Mg Tablet 25 Mg PO TID Clonazepam 0.5 Mg Tablet 0.25 Mg PO PRN Q6HRS PRN Clonazepam 0.5 Mg Tablet 0.5 Mg PO PRN Q6HRS PRN Vitamin C (Ascorbic Acid) 1,000 Mg Tablet 1,000 Mg PO DAILY Finasteride 5 Mg Tablet 5 Mg PO DAILY Metoprolol Tartrate 50 Mg Tablet 50 Mg PO DAILY Plavix (Clopidogrel Bisulfate) 75 Mg Tablet 75 Mg PO DAILY Diagnosis: Problems: (1) Dementia with behavioral problem (2) Gamekeeper's thumb of left hand JIM MCKEON MD Jan 31, 2017 21:12
--- NOTE | 2017-02-01 00:14 | PN ---
DATE: 01/30/2017 This late entry for 01/30/2017 covers elements not covered in my initial note. SUBJECTIVE: Per nursing report, the patient has been little withdrawn, not aggressive; however. 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 He has had some constipation and received milk of mag and prune juice. REVIEW OF SYSTEMS: In addition to constipation, complains of some pain in the neck, has a history of neck injury, impaired ambulation. No CV, , pulmonary, eye system symptoms on review. Past history from family indicates irritability, mood lability, alcohol abuse. MENTAL STATUS EXAM: Oriented to himself and situation. Speech is coherent at times, somewhat hyperverbal, abstraction fair, computation impaired, language function intact, attention span short. Mood and affect still somewhat anxious, labile. LABORATORY DATA: Reviewed. IMPRESSION: Major depressive disorder in partial remission. Impulse control disorder; major neurocognitive disorder, early vascular with depression; anxiety disorder, unspecified; status post cerebrovascular accident. PLAN: Continue Klonopin p.r.n. and Lexapro 10 mg a day, Seroquel 12.5 mg at bedtime, increased to 25 mg at bedtime. Adjust further as clinically indicated. JIM MCKEON MD DR: JUAN/betsy JOB#: [id number] / [id number]
[2017-02-01 05:10] VITALS: BP 104/56
[2017-02-01] MEDS: IPRATRPIUM/ALBUTEROL 0.5/2.5MG 3 ML NEBU. NEB SCH ×5 (05:41→20:00)
[2017-02-01] MEDS: ESCITALOPRAM 10 MG TABLET. PO SCH (08:42)
[2017-02-01] MEDS: CHOLECALCIFEROL (VITAMIN D3) 1,000 UNIT TABLET PO SCH (08:43)
[2017-02-01] MEDS: METOPROLOL SUCC 24HR ER 50 MG TAB.ER.24H. PO SCH (08:43)
[2017-02-01] MEDS: CLOPIDOGREL BISULFATE 75 MG TABLET PO SCH (08:43)
[2017-02-01] MEDS: FINASTERIDE 5 MG TABLET PO SCH (08:43)
[2017-02-01] MEDS: PANTOPRAZOLE 40 MG TABLET. PO SCH ×2 (08:43→20:44)
[2017-02-01] MEDS: MECLIZINE 25 MG TABLET PO SCH ×3 (08:43→20:44)
[2017-02-01] MEDS: ASCORBIC ACID 500 MG TABLET PO SCH (08:43)
[2017-02-01] MEDS: TIMOLOL 0.5% OPHTH SOLUTION 5ML BOTTLE. OU SCH ×2 (08:44→20:44)
[2017-02-01] MEDS: TRAMADOL 50 MG TABLET. PO PRN ×2 (09:01→20:43)
[2017-02-01] MEDS: PRENATAL MULTIVITAMIN TABLET. PO SCH (12:08)
[2017-02-01 15:47] VITALS: BP 150/70
[2017-02-01] MEDS: QUEtiapine 25 MG TABLET. PO SCH (20:44)
--- NOTE | 2017-02-01 21:23 | PDOC ---
Exam Davon Demential Exam: Davon Note: Please also refer to the separate dictated note~for this date of service dictated separately.~Patient seen individually. Discussed the patient with Nursing staff reviewed the chart.~Reviewed interim history and current functioning. Reviewed vital signs,~Labs/ Radiology~and current medications noted below. Continue current treatment with the changes noted in the dictated addendum note Assessment: Vital Signs: Vital Signs Date Time Temp Pulse Resp B/P Pulse Ox O2 Delivery O2 Flow Rate FiO2 02/01/17 20:43 20 98 Nasal Cannula 2.0 02/01/17 15:47 97.8 73 150/70 I&O Intake and Output 02/01/17 07:00 Intake Total 840 ml Balance 840 ml Intake Oral 840 ml Current Medications: Meds: Current Medications Acetaminophen (Tylenol) 650 mg PRN Q6HRS PRN PO PAIN / TEMP; Start 01/27/17 at 15:00; Status Cancel Multi-Ingredient Ointment (Analgesic [place]) 1 aleks PRN QID PRN TP MUSCLE PAIN; Start 01/27/17 at 15:30 Al Hydroxide/Mg Hydroxide (Mylanta Plus Xs) 15 ml PRN AFTMEALHC PRN PO DYSPEPSIA; Start 01/27/17 at 15:30 Magnesium Hydroxide (Milk Of Magnesia) 2,400 mg PRN QHS PRN PO CONSTIPATION Last administered on 01/30/17 13:05; Start 01/27/17 at 15:30 Acetaminophen (Tylenol) 1,000 mg PRN Q6HRS PRN PO PAIN / TEMP; Start 01/27/17 at 16:00 Clonazepam (Klonopin) 0.25 mg PRN Q6HRS PRN PO ANXIETY / AGITATION; Start at 16:00 Clonazepam (Klonopin) 0.5 mg PRN Q6HRS PRN PO ANXIETY / AGITATION; Start at 16:00 Clopidogrel Bisulfate (Plavix) 75 mg DAILY PO Last administered on 02/01/17 08: 43; Start 01/28/17 at 09:00 Escitalopram Oxalate (Lexapro) 10 mg DAILY PO Last administered on 02/01/17 08: 42; Start 01/28/17 at 09:00 Finasteride (Proscar) 5 mg DAILY PO Last administered on 02/01/17 08:43; Start 01/28/17 at 09:00 Meclizine HCl (Antivert) 25 mg TID PO Last administered on 02/01/17 20:44; Start 01/27/17 at 21:00 Metoprolol Succinate (Toprol Xl) 50 mg DAILY PO Last administered on 01/31/17 10:02; Start 01/28/17 at 09:00 Pantoprazole Sodium (Protonix) 40 mg BID PO Last administered on 02/01/17 20:44 ; Start 01/27/17 at 21:00 Tramadol HCl (Ultram) 50 mg PRN Q6HRS PRN PO PAIN Last administered on 20:43; Start 01/27/17 at 16:00 Ascorbic Acid (Vitamin C) 1,000 mg DAILY PO Last administered on 02/01/17 08:43 ; Start 01/28/17 at 09:00 Ondansetron HCl (Zofran Odt) 4 mg PRN Q6HRS PRN PO NAUSEA/VOMITING; Start at 16:45 Non-Formulary Medication 5 mg QID NEB ; Start 01/27/17 at 17:00; Status UNV Vitamin D (Vitamin D3) 400 unit DAILY PO Last administered on 01/29/17 09:51; Start 01/28/17 at 09:00; Stop 01/30/17 at 09:52; Status DC Albuterol/ Ipratropium (Duoneb) 3 ml STK-MED ONCE .ROUTE ; Start 01/27/17 at 16: 35; Stop 01/27/17 at 16:36; Status DC Albuterol/ Ipratropium (Duoneb) 3 ml RTQID NEB Last administered on 02/01/17 15 :31; Start 01/27/17 at 20:00 Timolol Maleate (Timoptic 0.5% Oph) 1 drop BID OU Last administered on 20:44; Start 01/28/17 at 09:00 Quetiapine Fumarate (SEROquel) 12.5 mg QHS PO Last administered on 01/29/17 19: 55; Start 01/29/17 at 21:00; Stop 01/30/17 at 19:03; Status DC Vitamin D (Vitamin D3) 1,000 unit DAILY PO Last administered on 01/30/17 09:57 ; Start 01/31/17 at 09:00; Stop 01/31/17 at 09:00; Status DC Cyanocobalamin (Vitamin B-12) 1,000 mcg [id number] IM Last administered on 12:15; Start 01/30/17 at 10:30 Prenat Multivit/ [place]/Iron/Folic Ac (Multivitamin ) 1 tab DAILYBFRLUN PO Last administered on 02/01/17 12:08; Start 01/30/17 at 11:30 Vitamin D (Vitamin D3) 1,000 unit DAILY PO Last administered on 02/01/17 08:43 ; Start 01/31/17 at 09:00 Quetiapine Fumarate (SEROquel) 25 mg QHS PO Last administered on 01/31/17 20:38 ; Start 01/30/17 at 21:00; Stop 02/01/17 at 18:07; Status DC Quetiapine Fumarate (SEROquel) 37.5 mg QHS PO Last administered on 02/01/17 20: 44; Start 02/01/17 at 21:00 Active Scripts Active Reported Timoptic (Timolol Maleate) 10 Ml Drops 1 Drop EACHEYE BID [duoneb] 5 Mg NEB QID [Vit D3 400units] 400 Units PO Acetaminophen 500 Mg Tablet 1,000 Mg PO PRN Q6HRS PRN Pantoprazole Sodium 40 Mg Tablet.dr 40 Mg PO BID Zofran (Ondansetron Hcl) 4 Mg Tablet 4 Mg PO PRN Q6HRS PRN Tramadol Hcl (Tramadol HCl) 50 Mg Tablet 50 Mg PO PRN Q6HRS PRN Lexapro (Escitalopram Oxalate) 10 Mg Tablet 10 Mg PO DAILY Meclizine Hcl 25 Mg Tablet 25 Mg PO TID Clonazepam 0.5 Mg Tablet 0.25 Mg PO PRN Q6HRS PRN Clonazepam 0.5 Mg Tablet 0.5 Mg PO PRN Q6HRS PRN Vitamin C (Ascorbic Acid) 1,000 Mg Tablet 1,000 Mg PO DAILY Finasteride 5 Mg Tablet 5 Mg PO DAILY Metoprolol Tartrate 50 Mg Tablet 50 Mg PO DAILY Plavix (Clopidogrel Bisulfate) 75 Mg Tablet 75 Mg PO DAILY Diagnosis: Problems: (1) Dementia with behavioral problem (2) Gamekeeper's thumb of left hand (3) Anxiety disorder (4) Dementia, vascular, with depression (5) Impulse control disorder (6) Major depressive disorder, recurrent episode JIM MCKEON MD Feb 01, 2017 21:23
[2017-02-02 05:58] VITALS: BP 130/58
[2017-02-02] MEDS: IPRATRPIUM/ALBUTEROL 0.5/2.5MG 3 ML NEBU. NEB SCH ×4 (06:12→20:50)
[2017-02-02 06:50] LABS: HEMATOCRIT 29.9 % (39.0-53.0); HEMOGLOBIN 9.2 g/dL (13.0-17.5); RED BLOOD COUNT 3.97 x10^6/uL (4.30-5.70); RED CELL DISTRIBUTION WIDTH 21.2 % (11.5-14.5); WHITE BLOOD COUNT 6.7 x10^3/uL (4.0-11.0)
[2017-02-02 07:00] LABS: ALBUMIN/GLOBULIN RATIO 0.9 (1.0-1.7); CALCIUM 8.3 mg/dL (8.5-10.1); CREATININE 0.9 mg/dL (0.7-1.3); GFR 81.2; POTASSIUM 3.8 mmol/L (3.5-5.1); TOTAL BILIRUBIN 0.3 mg/dL (0.2-1.0); TOTAL PROTEIN 6.4 g/dL (6.4-8.2)
[2017-02-02] MEDS: TIMOLOL 0.5% OPHTH SOLUTION 5ML BOTTLE. OU SCH ×2 (09:39→20:16)
[2017-02-02] MEDS: ESCITALOPRAM 10 MG TABLET. PO SCH (09:40)
[2017-02-02] MEDS: FINASTERIDE 5 MG TABLET PO SCH (09:40)
[2017-02-02] MEDS: ASCORBIC ACID 500 MG TABLET PO SCH (09:40)
[2017-02-02] MEDS: PANTOPRAZOLE 40 MG TABLET. PO SCH ×2 (09:40→20:15)
[2017-02-02] MEDS: CLOPIDOGREL BISULFATE 75 MG TABLET PO SCH (09:40)
[2017-02-02] MEDS: MECLIZINE 25 MG TABLET PO SCH ×3 (09:40→20:14)
[2017-02-02] MEDS: CHOLECALCIFEROL (VITAMIN D3) 1,000 UNIT TABLET PO SCH (09:41)
[2017-02-02] MEDS: METOPROLOL SUCC 24HR ER 50 MG TAB.ER.24H. PO SCH (09:41)
[2017-02-02] MEDS: PRENATAL MULTIVITAMIN TABLET. PO SCH (12:23)
[2017-02-02] MEDS: TRAMADOL 50 MG TABLET. PO PRN ×2 (12:35→20:34)
[2017-02-02 16:20] VITALS: BP 145/80
[2017-02-02] MEDS: QUEtiapine 25 MG TABLET. PO SCH (20:14)
--- NOTE | 2017-02-02 21:17 | PDOC ---
Exam Davon Demential Exam: Davon Note: Please also refer to the separate dictated note~for this date of service dictated separately.~Patient seen individually. Discussed the patient with Nursing staff reviewed the chart.~Reviewed interim history and current functioning. Reviewed vital signs,~Labs/ Radiology~and current medications noted below. Continue current treatment with the changes noted in the dictated addendum note Assessment: Vital Signs: Vital Signs Date Time Temp Pulse Resp B/P Pulse Ox O2 Delivery O2 Flow Rate FiO2 02/02/17 20:34 20 2.0 02/02/17 16:50 99 Nasal Cannula 02/02/17 16:20 97.4 77 145/80 I&O Intake and Output 02/02/17 07:00 Intake Total 720 ml Balance 720 ml Intake Oral 720 ml Labs: Laboratory Tests Test 02/02/17 06:31 White Blood Count 6.7x10^3/uL (4.0-11.0) Red Blood Count 3.97x10^6/uL (4.30-5.70) L Hemoglobin 9.2g/dL (13.0-17.5) L Hematocrit 29.9% (39.0-53.0) L Mean Corpuscular Volume 75fL (79-100) L Mean Corpuscular Hemoglobin 23pg (25-35) L Mean Corpuscular Hemoglobin Concent 31g/dL (31-37) Red Cell Distribution Width 21.2% (11.5-14.5) H Platelet Count 216x10^3/uL (140-400) Sodium Level 145mmol/L (136-145) Potassium Level 3.8mmol/L (3.5-5.1) Chloride Level 109mmol/L (98-107) H Carbon Dioxide Level 30mmol/L (21-32) Anion Gap 6 (6-14) Blood Urea Nitrogen 17mg/dL (8-26) Creatinine 0.9mg/dL (0.7-1.3) Estimated GFR (Cockcroft-Gault) 81.2 BUN/Creatinine Ratio 19 (6-20) Glucose Level 109mg/dL (70-99) H Calcium Level 8.3mg/dL (8.5-10.1) L Magnesium Level 2.0mg/dL (1.8-2.4) Total Bilirubin 0.3mg/dL (0.2-1.0) Aspartate Amino Transferase (AST) 15U/L (15-37) Alanine Aminotransferase (ALT) 21U/L (16-63) Alkaline Phosphatase 86U/L (46-116) Total Protein 6.4g/dL (6.4-8.2) Albumin 3.0g/dL (3.4-5.0) L Albumin/Globulin Ratio 0.9 (1.0-1.7) L Current Medications: Meds: Current Medications Acetaminophen (Tylenol) 650 mg PRN Q6HRS PRN PO PAIN / TEMP; Start 01/27/17 at 15:00; Status Cancel Multi-Ingredient Ointment (Analgesic [place]) 1 aleks PRN QID PRN TP MUSCLE PAIN; Start 01/27/17 at 15:30 Al Hydroxide/Mg Hydroxide (Mylanta Plus Xs) 15 ml PRN AFTMEALHC PRN PO DYSPEPSIA; Start 01/27/17 at 15:30 Magnesium Hydroxide (Milk Of Magnesia) 2,400 mg PRN QHS PRN PO CONSTIPATION Last administered on 01/30/17 13:05; Start 01/27/17 at 15:30 Acetaminophen (Tylenol) 1,000 mg PRN Q6HRS PRN PO PAIN / TEMP; Start 01/27/17 at 16:00 Clonazepam (Klonopin) 0.25 mg PRN Q6HRS PRN PO ANXIETY / AGITATION; Start at 16:00 Clonazepam (Klonopin) 0.5 mg PRN Q6HRS PRN PO ANXIETY / AGITATION; Start at 16:00 Clopidogrel Bisulfate (Plavix) 75 mg DAILY PO Last administered on 02/02/17 09: 40; Start 01/28/17 at 09:00 Escitalopram Oxalate (Lexapro) 10 mg DAILY PO Last administered on 02/02/17 09: 40; Start 01/28/17 at 09:00 Finasteride (Proscar) 5 mg DAILY PO Last administered on 02/02/17 09:40; Start 01/28/17 at 09:00 Meclizine HCl (Antivert) 25 mg TID PO Last administered on 02/02/17 20:14; Start 01/27/17 at 21:00 Metoprolol Succinate (Toprol Xl) 50 mg DAILY PO Last administered on 02/02/17 09:41; Start 01/28/17 at 09:00 Pantoprazole Sodium (Protonix) 40 mg BID PO Last administered on 02/02/17 20:15 ; Start 01/27/17 at 21:00 Tramadol HCl (Ultram) 50 mg PRN Q6HRS PRN PO PAIN Last administered on 20:34; Start 01/27/17 at 16:00 Ascorbic Acid (Vitamin C) 1,000 mg DAILY PO Last administered on 02/02/17 09:40 ; Start 01/28/17 at 09:00 Ondansetron HCl (Zofran Odt) 4 mg PRN Q6HRS PRN PO NAUSEA/VOMITING; Start at 16:45 Non-Formulary Medication 5 mg QID NEB ; Start 01/27/17 at 17:00; Status UNV Vitamin D (Vitamin D3) 400 unit DAILY PO Last administered on 01/29/17 09:51; Start 01/28/17 at 09:00; Stop 01/30/17 at 09:52; Status DC Albuterol/ Ipratropium (Duoneb) 3 ml STK-MED ONCE .ROUTE ; Start 01/27/17 at 16: 35; Stop 01/27/17 at 16:36; Status DC Albuterol/ Ipratropium (Duoneb) 3 ml RTQID NEB Last administered on 02/02/17 16 :50; Start 01/27/17 at 20:00 Timolol Maleate (Timoptic 0.5% Oph) 1 drop BID OU Last administered on 20:16; Start 01/28/17 at 09:00 Quetiapine Fumarate (SEROquel) 12.5 mg QHS PO Last administered on 01/29/17 19: 55; Start 01/29/17 at 21:00; Stop 01/30/17 at 19:03; Status DC Vitamin D (Vitamin D3) 1,000 unit DAILY PO Last administered on 01/30/17 09:57 ; Start 01/31/17 at 09:00; Stop 01/31/17 at 09:00; Status DC Cyanocobalamin (Vitamin B-12) 1,000 mcg [id number] IM Last administered on 12:15; Start 01/30/17 at 10:30 Prenat Multivit/ [place]/Iron/Folic Ac (Multivitamin ) 1 tab DAILYBFRLUN PO Last administered on 02/02/17 12:23; Start 01/30/17 at 11:30 Vitamin D (Vitamin D3) 1,000 unit DAILY PO Last administered on 02/02/17 09:41 ; Start 01/31/17 at 09:00 Quetiapine Fumarate (SEROquel) 25 mg QHS PO Last administered on 01/31/17 20:38 ; Start 01/30/17 at 21:00; Stop 02/01/17 at 18:07; Status DC Quetiapine Fumarate (SEROquel) 37.5 mg QHS PO Last administered on 02/02/17 20: 14; Start 02/01/17 at 21:00 Active Scripts Active Reported Timoptic (Timolol Maleate) 10 Ml Drops 1 Drop EACHEYE BID [duoneb] 5 Mg NEB QID [Vit D3 400units] 400 Units PO Acetaminophen 500 Mg Tablet 1,000 Mg PO PRN Q6HRS PRN Pantoprazole Sodium 40 Mg Tablet.dr 40 Mg PO BID Zofran (Ondansetron Hcl) 4 Mg Tablet 4 Mg PO PRN Q6HRS PRN Tramadol Hcl (Tramadol HCl) 50 Mg Tablet 50 Mg PO PRN Q6HRS PRN Lexapro (Escitalopram Oxalate) 10 Mg Tablet 10 Mg PO DAILY Meclizine Hcl 25 Mg Tablet 25 Mg PO TID Clonazepam 0.5 Mg Tablet 0.25 Mg PO PRN Q6HRS PRN Clonazepam 0.5 Mg Tablet 0.5 Mg PO PRN Q6HRS PRN Vitamin C (Ascorbic Acid) 1,000 Mg Tablet 1,000 Mg PO DAILY Finasteride 5 Mg Tablet 5 Mg PO DAILY Metoprolol Tartrate 50 Mg Tablet 50 Mg PO DAILY Plavix (Clopidogrel Bisulfate) 75 Mg Tablet 75 Mg PO DAILY Diagnosis: Problems: (1) Dementia with behavioral problem (2) Gamekeeper's thumb of left hand (3) Anxiety disorder (4) Dementia, vascular, with depression (5) Impulse control disorder (6) Major depressive disorder, recurrent episode JIM MCKEON MD Feb 02, 2017 21:17
--- NOTE | 2017-02-03 02:39 | PN ---
DATE: 02/01/2017 PSYCHIATRIC PROGRESS NOTE This is a late entry of 02/01/2017 cover elements not covered in my initial note. SUBJECTIVE: Per nursing report, the patient has been somewhat withdrawn, complained of ongoing chronic pain and some dizziness. REVIEW OF SYSTEMS: Ambulation impaired with a walker. No CV, , pulmonary, eye system symptoms on review. MENTAL STATUS EXAM: Reasonably oriented. Speech is coherent, a little driven and irritable at times. No active suicidal or homicidal ideation. Mood and affect intermittently anxious, labile. LABORATORY DATA: Reviewed. IMPRESSION: Unchanged from initial note. PLAN: Increase Seroquel from 25 mg at bedtime to 37.5 mg at bedtime maintain Lexapro 10 mg a day. Continue rest of psychotropics. Considered Depakote as a mood stabilizer if needed. MAN Angelica MCKEON MD DR: JUAN/betsy JOB#: [id number] / [id number]
--- NOTE | 2017-02-03 02:40 | PN ---
DATE: 01/31/2017 PSYCHIATRIC PROGRESS NOTE This is a late entry for 01/31/2017, covers elements not covered in my initial note. SUBJECTIVE: The patient was staffed at a treatment team meeting with the entire team on 01/31/2017, and then I met with him individually the evening of 01/31/2017. He is sleeping about 5-3/4 hours. Appetite 100%. He has been withdrawn and cooperative. No hallucinations noted. CT head is negative. Reviewed his past history of alcohol abuse, which he discontinued 4 years ago. In the past, he used to be violent with his . REVIEW OF SYSTEMS: Ambulation impaired. No CV, , pulmonary, eye, ENT system symptoms on review. He remains somewhat anxious, restless. MENTAL STATUS EXAM: Oriented to himself and situation. Speech is coherent. He is a little irritable, somewhat anxious, driven at times, but does redirect. No active suicidal or homicidal ideation. Attention span short. Language function intact. LABORATORY DATA: Reviewed. IMPRESSION: Unchanged from initial note. PLAN: Increase Seroquel from 12.5 mg at bedtime to 25 mg at bedtime. Continue Lexapro 10 mg a day, Klonopin p.r.n., and tramadol, he gets twice a day. Adjust Lexapro and Seroquel further as clinically indicated. Consider Depakote as a mood stabilizer if mood lability and agitation persist. MAN Angelica MCKEON MD DR: JUAN/betsy JOB#: [id number] / [id number]
[2017-02-03] MEDS: IPRATRPIUM/ALBUTEROL 0.5/2.5MG 3 ML NEBU. NEB SCH ×4 (04:51→20:02)
[2017-02-03 05:47] VITALS: BP 134/62
[2017-02-03] MEDS: TIMOLOL 0.5% OPHTH SOLUTION 5ML BOTTLE. OU SCH ×2 (10:27→19:43)
[2017-02-03] MEDS: METOPROLOL SUCC 24HR ER 50 MG TAB.ER.24H. PO SCH (10:27)
[2017-02-03] MEDS: CHOLECALCIFEROL (VITAMIN D3) 1,000 UNIT TABLET PO SCH (10:27)
[2017-02-03] MEDS: MECLIZINE 25 MG TABLET PO SCH ×3 (10:27→19:42)
[2017-02-03] MEDS: FINASTERIDE 5 MG TABLET PO SCH (10:27)
[2017-02-03] MEDS: PANTOPRAZOLE 40 MG TABLET. PO SCH ×2 (10:27→19:41)
[2017-02-03] MEDS: ESCITALOPRAM 10 MG TABLET. PO SCH (10:28)
[2017-02-03] MEDS: ASCORBIC ACID 500 MG TABLET PO SCH (10:28)
[2017-02-03] MEDS: CLOPIDOGREL BISULFATE 75 MG TABLET PO SCH (10:28)
[2017-02-03] MEDS: PRENATAL MULTIVITAMIN TABLET. PO SCH (11:30)
[2017-02-03 15:47] VITALS: BP 141/82
[2017-02-03] MEDS: TRAMADOL 50 MG TABLET. PO PRN (19:41)
[2017-02-03] MEDS: QUEtiapine 25 MG TABLET. PO SCH (19:42)
--- NOTE | 2017-02-03 22:04 | PDOC ---
Exam Davon Demential Exam: Davon Note: Please also refer to the separate dictated note~for this date of service dictated separately.~Patient seen individually. Discussed the patient with Nursing staff reviewed the chart.~Reviewed interim history and current functioning. Reviewed vital signs,~Labs/ Radiology~and current medications noted below. Continue current treatment with the changes noted in the dictated addendum note Assessment: Vital Signs: Vital Signs Date Time Temp Pulse Resp B/P Pulse Ox O2 Delivery O2 Flow Rate FiO2 02/03/17 20:41 18 100 Room Air 2.0 02/03/17 15:47 98.5 71 141/82 I&O Intake and Output 02/03/17 07:00 Intake Total 720 ml Balance 720 ml Intake Oral 720 ml Current Medications: Meds: Current Medications Acetaminophen (Tylenol) 650 mg PRN Q6HRS PRN PO PAIN / TEMP; Start 01/27/17 at 15:00; Status Cancel Multi-Ingredient Ointment (Analgesic [place]) 1 aleks PRN QID PRN TP MUSCLE PAIN; Start 01/27/17 at 15:30 Al Hydroxide/Mg Hydroxide (Mylanta Plus Xs) 15 ml PRN AFTMEALHC PRN PO DYSPEPSIA; Start 01/27/17 at 15:30 Magnesium Hydroxide (Milk Of Magnesia) 2,400 mg PRN QHS PRN PO CONSTIPATION Last administered on 01/30/17 13:05; Start 01/27/17 at 15:30 Acetaminophen (Tylenol) 1,000 mg PRN Q6HRS PRN PO PAIN / TEMP; Start 01/27/17 at 16:00 Clonazepam (Klonopin) 0.25 mg PRN Q6HRS PRN PO ANXIETY / AGITATION; Start at 16:00 Clonazepam (Klonopin) 0.5 mg PRN Q6HRS PRN PO ANXIETY / AGITATION; Start at 16:00 Clopidogrel Bisulfate (Plavix) 75 mg DAILY PO Last administered on 02/03/17 10: 28; Start 01/28/17 at 09:00 Escitalopram Oxalate (Lexapro) 10 mg DAILY PO Last administered on 02/03/17 10: 28; Start 01/28/17 at 09:00 Finasteride (Proscar) 5 mg DAILY PO Last administered on 02/03/17 10:27; Start 01/28/17 at 09:00 Meclizine HCl (Antivert) 25 mg TID PO Last administered on 02/03/17 19:42; Start 01/27/17 at 21:00 Metoprolol Succinate (Toprol Xl) 50 mg DAILY PO Last administered on 02/03/17 10:27; Start 01/28/17 at 09:00 Pantoprazole Sodium (Protonix) 40 mg BID PO Last administered on 02/03/17 19:41 ; Start 01/27/17 at 21:00 Tramadol HCl (Ultram) 50 mg PRN Q6HRS PRN PO PAIN Last administered on 19:41; Start 01/27/17 at 16:00 Ascorbic Acid (Vitamin C) 1,000 mg DAILY PO Last administered on 02/03/17 10:28 ; Start 01/28/17 at 09:00 Ondansetron HCl (Zofran Odt) 4 mg PRN Q6HRS PRN PO NAUSEA/VOMITING; Start at 16:45 Non-Formulary Medication 5 mg QID NEB ; Start 01/27/17 at 17:00; Status UNV Vitamin D (Vitamin D3) 400 unit DAILY PO Last administered on 01/29/17 09:51; Start 01/28/17 at 09:00; Stop 01/30/17 at 09:52; Status DC Albuterol/ Ipratropium (Duoneb) 3 ml STK-MED ONCE .ROUTE ; Start 01/27/17 at 16: 35; Stop 01/27/17 at 16:36; Status DC Albuterol/ Ipratropium (Duoneb) 3 ml RTQID NEB Last administered on 02/03/17 20 :02; Start 01/27/17 at 20:00 Timolol Maleate (Timoptic 0.5% Ophth) 1 drop BID OU Last administered on 19:43; Start 01/28/17 at 09:00 Quetiapine Fumarate (SEROquel) 12.5 mg QHS PO Last administered on 01/29/17 19: 55; Start 01/29/17 at 21:00; Stop 01/30/17 at 19:03; Status DC Vitamin D (Vitamin D3) 1,000 unit DAILY PO Last administered on 01/30/17 09:57 ; Start 01/31/17 at 09:00; Stop 01/31/17 at 09:00; Status DC Cyanocobalamin (Vitamin B-12) 1,000 mcg [id number] IM Last administered on 12:15; Start 01/30/17 at 10:30 Prenat Multivit/ [place]/Iron/Folic Ac (Multivitamin ) 1 tab DAILYBFRLUN PO Last administered on 02/03/17 11:30; Start 01/30/17 at 11:30 Vitamin D (Vitamin D3) 1,000 unit DAILY PO Last administered on 02/03/17 10:27 ; Start 01/31/17 at 09:00 Quetiapine Fumarate (SEROquel) 25 mg QHS PO Last administered on 01/31/17 20:38 ; Start 01/30/17 at 21:00; Stop 02/01/17 at 18:07; Status DC Quetiapine Fumarate (SEROquel) 37.5 mg QHS PO Last administered on 02/03/17 19: 42; Start 02/01/17 at 21:00 Active Scripts Active Reported Timoptic (Timolol Maleate) 10 Ml Drops 1 Drop EACHEYE BID [duoneb] 5 Mg NEB QID [Vit D3 400units] 400 Units PO Acetaminophen 500 Mg Tablet 1,000 Mg PO PRN Q6HRS PRN Pantoprazole Sodium 40 Mg Tablet.dr 40 Mg PO BID Zofran (Ondansetron Hcl) 4 Mg Tablet 4 Mg PO PRN Q6HRS PRN Tramadol Hcl (Tramadol HCl) 50 Mg Tablet 50 Mg PO PRN Q6HRS PRN Lexapro (Escitalopram Oxalate) 10 Mg Tablet 10 Mg PO DAILY Meclizine Hcl 25 Mg Tablet 25 Mg PO TID Clonazepam 0.5 Mg Tablet 0.25 Mg PO PRN Q6HRS PRN Clonazepam 0.5 Mg Tablet 0.5 Mg PO PRN Q6HRS PRN Vitamin C (Ascorbic Acid) 1,000 Mg Tablet 1,000 Mg PO DAILY Finasteride 5 Mg Tablet 5 Mg PO DAILY Metoprolol Tartrate 50 Mg Tablet 50 Mg PO DAILY Plavix (Clopidogrel Bisulfate) 75 Mg Tablet 75 Mg PO DAILY Diagnosis: Problems: (1) Dementia with behavioral problem (2) Gamekeeper's thumb of left hand (3) Anxiety disorder (4) Dementia, vascular, with depression (5) Impulse control disorder (6) Major depressive disorder, recurrent episode JIM MCKEON MD Feb 03, 2017 22:04
[2017-02-04] MEDS: TRAMADOL 50 MG TABLET. PO PRN ×4 (03:20→20:24)
[2017-02-04] MEDS: IPRATRPIUM/ALBUTEROL 0.5/2.5MG 3 ML NEBU. NEB SCH ×4 (05:07→21:36)
[2017-02-04 05:55] VITALS: BP 121/58
[2017-02-04] MEDS: ESCITALOPRAM 10 MG TABLET. PO SCH (08:37)
[2017-02-04] MEDS: MECLIZINE 25 MG TABLET PO SCH ×3 (08:37→20:24)
[2017-02-04] MEDS: METOPROLOL SUCC 24HR ER 50 MG TAB.ER.24H. PO SCH (08:37)
[2017-02-04] MEDS: CLOPIDOGREL BISULFATE 75 MG TABLET PO SCH (08:37)
[2017-02-04] MEDS: FINASTERIDE 5 MG TABLET PO SCH (08:37)
[2017-02-04] MEDS: CHOLECALCIFEROL (VITAMIN D3) 1,000 UNIT TABLET PO SCH (08:37)
[2017-02-04] MEDS: ASCORBIC ACID 500 MG TABLET PO SCH (08:37)
[2017-02-04] MEDS: PANTOPRAZOLE 40 MG TABLET. PO SCH ×2 (08:37→20:24)
[2017-02-04] MEDS: TIMOLOL 0.5% OPHTH SOLUTION 5ML BOTTLE. OU SCH ×2 (09:31→20:25)
[2017-02-04] MEDS: PRENATAL MULTIVITAMIN TABLET. PO SCH (11:51)
--- NOTE | 2017-02-04 14:14 | RAD ---
AP and lateral views of the soft tissues of the neck Clinical indications: Difficulty swallowing. Neck pain. Findings: The epiglottis and aryepiglottic folds are not abnormally thickened. No prevertebral soft tissue swelling is evident. No distention of the hypopharynx is seen. There is moderate degenerative cervical spondylosis including disc space narrowing and endplate spurring from C3-4 through C5-6. Calcified atheromatous disease of the right carotid artery is seen. IMPRESSION: No acute finding. Degenerative cervical spondylosis. Calcified atheromatous disease of the right carotid artery.
--- NOTE | 2017-02-04 14:18 | RAD ---
Five-view cervical spine series History: Neck pain for one day. Findings: The patient is unable to do a swimmer's view. Therefore, in the lateral view, C1-C6 is seen. C6-T7 articulation is visualized and the C7-T1 articulation is partially visualized anteriorly. Both of these appear well aligned. No acute fracture or discitis or osteolytic process or prevertebral soft tissue swelling is evident. There is severe degenerative disc space narrowing and moderate degenerative endplate spurring at C3-4 through C6-7. There is moderate narrowing of the left neural foramina from C4-5 through C6-7. There is moderate narrowing of the right neural foramina from C3-4 through C6-7. Mild rotatory dextroscoliosis is seen. Calcified atheromatous disease of the right carotid artery is seen. IMPRESSION: Severe degenerative cervical spondylosis.
[2017-02-04 15:57] VITALS: BP 150/81
--- NOTE | 2017-02-04 20:30 | PN ---
DATE: 02/02/2017 PSYCHIATRIC PROGRESS NOTE This is a late entry for 02/02/2017, covers elements not covered in my initial note. SUBJECTIVE: Per nursing report, the patient is reasonably oriented. Complains of hip and low back pain. Received tramadol at 1230 hours, hyperverbal, frequently sits in the hallway. REVIEW OF SYSTEMS: Positive for impaired ambulation, back pain, shortness of breath on O2 supplements. No CV, , GI system symptoms on review. MENTAL STATUS EXAM: Reasonably oriented. Speech is coherent, rapid, extremely hyperverbal, typical for him. Abstraction fair, computation impaired, language function intact. Mood and affect somewhat anxious, labile. LABORATORY DATA: Reviewed. IMPRESSION: Unchanged from initial note. PLAN: Continue current psychotropics. Seroquel was increased, may have to increase again depending on his progress. MAN Angelica MCKEON MD DR: JUAN/betsy JOB#: [id number] / [id number]
--- NOTE | 2017-02-04 20:35 | PN ---
DATE: 02/03/2017 PSYCHIATRIC PROGRESS NOTE This is a late entry of 02/03/2017 covers elements not covered in my initial note. SUBJECTIVE: The patient was quite obsessive and anxious if nurses are late about 5 or 10 minutes to administer his medications. He is agitated, walking the hallway with no oxygen till he was redirected, increased confusion withdrawn. He sits in the hallway remains hyperverbal as I met with him evening of 02/03/2017. REVIEW OF SYSTEMS: Shortness of breath, impaired ambulation with a walker. No CV, , GI, ENT system symptoms on review. MENTAL STATUS EXAM: Oriented to himself and situation. Speech coherent, hyperverbal, abstraction fair, computation impaired, language function intact. Mood and affect somewhat labile. LABORATORY DATA: Reviewed. IMPRESSION: Major depressive disorder with history of psychotic features; anxiety disorder, unspecified, probable bipolar 1 disorder, unspecified. PLAN: Continue Klonopin p.r.n., Lexapro 10 mg a day, Seroquel 37.5 mg at bedtime will be increased to 50 mg at bedtime. Make further adjustments as clinically indicated and add Seroquel 12.5 mg in the morning. JIM MCKEON MD DR: JUAN/betsy JOB#: [id number] / [id number]
[2017-02-04] MEDS: QUEtiapine 25 MG TABLET. PO SCH (21:00)
--- NOTE | 2017-02-04 21:04 | PDOC ---
Exam Davon Demential Exam: Davon Note: Please also refer to the separate dictated note~for this date of service dictated separately.~Patient seen individually. Discussed the patient with Nursing staff reviewed the chart.~Reviewed interim history and current functioning. Reviewed vital signs,~Labs/ Radiology~and current medications noted below. Continue current treatment with the changes noted in the dictated addendum note Assessment: Vital Signs: Vital Signs Date Time Temp Pulse Resp B/P Pulse Ox O2 Delivery O2 Flow Rate FiO2 02/04/17 15:57 97.5 62 20 150/81 100 Nasal Cannula 1.0 I&O Intake and Output 02/04/17 07:00 Intake Total 718 ml Balance 718 ml Intake Oral 718 ml # Bowel Movements 2 Current Medications: Meds: Current Medications Acetaminophen (Tylenol) 650 mg PRN Q6HRS PRN PO PAIN / TEMP; Start 01/27/17 at 15:00; Status Cancel Multi-Ingredient Ointment (Analgesic [place]) 1 aleks PRN QID PRN TP MUSCLE PAIN; Start 01/27/17 at 15:30 Al Hydroxide/Mg Hydroxide (Mylanta Plus Xs) 15 ml PRN AFTMEALHC PRN PO DYSPEPSIA; Start 01/27/17 at 15:30 Magnesium Hydroxide (Milk Of Magnesia) 2,400 mg PRN QHS PRN PO CONSTIPATION Last administered on 01/30/17 13:05; Start 01/27/17 at 15:30 Acetaminophen (Tylenol) 1,000 mg PRN Q6HRS PRN PO PAIN / TEMP; Start 01/27/17 at 16:00 Clonazepam (Klonopin) 0.25 mg PRN Q6HRS PRN PO ANXIETY / AGITATION; Start at 16:00 Clonazepam (Klonopin) 0.5 mg PRN Q6HRS PRN PO ANXIETY / AGITATION; Start at 16:00 Clopidogrel Bisulfate (Plavix) 75 mg DAILY PO Last administered on 02/04/17 08: 37; Start 01/28/17 at 09:00 Escitalopram Oxalate (Lexapro) 10 mg DAILY PO Last administered on 02/04/17 08: 37; Start 01/28/17 at 09:00 Finasteride (Proscar) 5 mg DAILY PO Last administered on 02/04/17 08:37; Start 01/28/17 at 09:00 Meclizine HCl (Antivert) 25 mg TID PO Last administered on 02/04/17 20:24; Start 01/27/17 at 21:00 Metoprolol Succinate (Toprol Xl) 50 mg DAILY PO Last administered on 02/04/17 08:37; Start 01/28/17 at 09:00 Pantoprazole Sodium (Protonix) 40 mg BID PO Last administered on 02/04/17 20:24 ; Start 01/27/17 at 21:00 Tramadol HCl (Ultram) 50 mg PRN Q6HRS PRN PO PAIN Last administered on 17:42; Start 01/27/17 at 16:00 Ascorbic Acid (Vitamin C) 1,000 mg DAILY PO Last administered on 02/04/17 08:37 ; Start 01/28/17 at 09:00 Ondansetron HCl (Zofran Odt) 4 mg PRN Q6HRS PRN PO NAUSEA/VOMITING; Start at 16:45 Non-Formulary Medication 5 mg QID NEB ; Start 01/27/17 at 17:00; Status UNV Vitamin D (Vitamin D3) 400 unit DAILY PO Last administered on 01/29/17 09:51; Start 01/28/17 at 09:00; Stop 01/30/17 at 09:52; Status DC Albuterol/ Ipratropium (Duoneb) 3 ml STK-MED ONCE .ROUTE ; Start 01/27/17 at 16: 35; Stop 01/27/17 at 16:36; Status DC Albuterol/ Ipratropium (Duoneb) 3 ml RTQID NEB Last administered on 02/04/17 15 :47; Start 01/27/17 at 20:00 Timolol Maleate (Timoptic 0.5% Ophth) 1 drop BID OU Last administered on 20:25; Start 01/28/17 at 09:00 Quetiapine Fumarate (SEROquel) 12.5 mg QHS PO Last administered on 01/29/17 19: 55; Start 01/29/17 at 21:00; Stop 01/30/17 at 19:03; Status DC Vitamin D (Vitamin D3) 1,000 unit DAILY PO Last administered on 01/30/17 09:57 ; Start 01/31/17 at 09:00; Stop 01/31/17 at 09:00; Status DC Cyanocobalamin (Vitamin B-12) 1,000 mcg [id number] IM Last administered on 12:15; Start 01/30/17 at 10:30 Prenat Multivit/ [place]/Iron/Folic Ac (Multivitamin ) 1 tab DAILYBFRLUN PO Last administered on 02/04/17 11:51; Start 01/30/17 at 11:30 Vitamin D (Vitamin D3) 1,000 unit DAILY PO Last administered on 02/04/17 08:37 ; Start 01/31/17 at 09:00 Quetiapine Fumarate (SEROquel) 25 mg QHS PO Last administered on 01/31/17 20:38 ; Start 01/30/17 at 21:00; Stop 02/01/17 at 18:07; Status DC Quetiapine Fumarate (SEROquel) 37.5 mg QHS PO Last administered on 02/03/17 19: 42; Start 02/01/17 at 21:00; Stop 02/04/17 at 12:14; Status DC Quetiapine Fumarate (SEROquel) 50 mg QHS PO ; Start 02/04/17 at 21:00 Quetiapine Fumarate (SEROquel) 12.5 mg DAILY PO ; Start 02/05/17 at 09:00 Active Scripts Active Reported Timoptic (Timolol Maleate) 10 Ml Drops 1 Drop EACHEYE BID [duoneb] 5 Mg NEB QID [Vit D3 400units] 400 Units PO Acetaminophen 500 Mg Tablet 1,000 Mg PO PRN Q6HRS PRN Pantoprazole Sodium 40 Mg Tablet.dr 40 Mg PO BID Zofran (Ondansetron Hcl) 4 Mg Tablet 4 Mg PO PRN Q6HRS PRN Tramadol Hcl (Tramadol HCl) 50 Mg Tablet 50 Mg PO PRN Q6HRS PRN Lexapro (Escitalopram Oxalate) 10 Mg Tablet 10 Mg PO DAILY Meclizine Hcl 25 Mg Tablet 25 Mg PO TID Clonazepam 0.5 Mg Tablet 0.25 Mg PO PRN Q6HRS PRN Clonazepam 0.5 Mg Tablet 0.5 Mg PO PRN Q6HRS PRN Vitamin C (Ascorbic Acid) 1,000 Mg Tablet 1,000 Mg PO DAILY Finasteride 5 Mg Tablet 5 Mg PO DAILY Metoprolol Tartrate 50 Mg Tablet 50 Mg PO DAILY Plavix (Clopidogrel Bisulfate) 75 Mg Tablet 75 Mg PO DAILY Diagnosis: Problems: (1) Dementia with 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
[2017-02-05] MEDS: TRAMADOL 50 MG TABLET. PO PRN ×4 (00:54→19:42)
[2017-02-05] MEDS: IPRATRPIUM/ALBUTEROL 0.5/2.5MG 3 ML NEBU. NEB SCH ×4 (05:20→20:30)
[2017-02-05 06:00] VITALS: BP 136/71
[2017-02-05] MEDS: TIMOLOL 0.5% OPHTH SOLUTION 5ML BOTTLE. OU SCH ×2 (09:24→19:43)
[2017-02-05] MEDS: MECLIZINE 25 MG TABLET PO SCH ×3 (09:25→19:43)
[2017-02-05] MEDS: FINASTERIDE 5 MG TABLET PO SCH (09:25)
[2017-02-05] MEDS: PANTOPRAZOLE 40 MG TABLET. PO SCH ×2 (09:25→19:42)
[2017-02-05] MEDS: ESCITALOPRAM 10 MG TABLET. PO SCH (09:25)
[2017-02-05] MEDS: CLOPIDOGREL BISULFATE 75 MG TABLET PO SCH (09:25)
[2017-02-05] MEDS: QUEtiapine 25 MG TABLET. PO SCH ×2 (09:30→19:42)
[2017-02-05] MEDS: ASCORBIC ACID 500 MG TABLET PO SCH (09:31)
[2017-02-05] MEDS: METOPROLOL SUCC 24HR ER 50 MG TAB.ER.24H. PO SCH (09:31)
[2017-02-05] MEDS: CHOLECALCIFEROL (VITAMIN D3) 1,000 UNIT TABLET PO SCH (09:32)
[2017-02-05] MEDS: PRENATAL MULTIVITAMIN TABLET. PO SCH (11:33)
[2017-02-05 15:30] VITALS: BP 164/82
[2017-02-05] MEDS ORDERED: traZODone 50 MG TABLET. PO PRN (18:45)
--- NOTE | 2017-02-05 21:03 | PDOC ---
Exam Davon Demential Exam: Davon Note: Please also refer to the separate dictated note~for this date of service dictated separately.~Patient seen individually. Discussed the patient with Nursing staff reviewed the chart.~Reviewed interim history and current functioning. Reviewed vital signs,~Labs/ Radiology~and current medications noted below. Continue current treatment with the changes noted in the dictated addendum note Assessment: Vital Signs: Vital Signs Date Time Temp Pulse Resp B/P Pulse Ox O2 Delivery O2 Flow Rate FiO2 02/05/17 20:42 18 99 Nasal Cannula 2.0 02/05/17 15:30 97.7 71 164/82 I&O Intake and Output 02/05/17 07:00 Intake Total 960 ml Balance 960 ml Intake Oral 960 ml # Voids 2 Current Medications: Meds: Current Medications Acetaminophen (Tylenol) 650 mg PRN Q6HRS PRN PO PAIN / TEMP; Start 01/27/17 at 15:00; Status Cancel Multi-Ingredient Ointment (Analgesic [place]) 1 aleks PRN QID PRN TP MUSCLE PAIN; Start 01/27/17 at 15:30 Al Hydroxide/Mg Hydroxide (Mylanta Plus Xs) 15 ml PRN AFTMEALHC PRN PO DYSPEPSIA; Start 01/27/17 at 15:30 Magnesium Hydroxide (Milk Of Magnesia) 2,400 mg PRN QHS PRN PO CONSTIPATION Last administered on 01/30/17 13:05; Start 01/27/17 at 15:30 Acetaminophen (Tylenol) 1,000 mg PRN Q6HRS PRN PO PAIN / TEMP; Start 01/27/17 at 16:00 Clonazepam (Klonopin) 0.25 mg PRN Q6HRS PRN PO ANXIETY / AGITATION; Start at 16:00 Clonazepam (Klonopin) 0.5 mg PRN Q6HRS PRN PO ANXIETY / AGITATION; Start at 16:00 Clopidogrel Bisulfate (Plavix) 75 mg DAILY PO Last administered on 02/05/17 09 :25; Start 01/28/17 at 09:00 Escitalopram Oxalate (Lexapro) 10 mg DAILY PO Last administered on 02/05/17 09 :25; Start 01/28/17 at 09:00 Finasteride (Proscar) 5 mg DAILY PO Last administered on 02/05/17 09:25; Start 01/28/17 at 09:00 Meclizine HCl (Antivert) 25 mg TID PO Last administered on 02/05/17 19:43; Start 01/27/17 at 21:00 Metoprolol Succinate (Toprol Xl) 50 mg DAILY PO Last administered on 02/05/17 09:31; Start 01/28/17 at 09:00 Pantoprazole Sodium (Protonix) 40 mg BID PO Last administered on 02/05/17 19: 42; Start 01/27/17 at 21:00 Tramadol HCl (Ultram) 50 mg PRN Q6HRS PRN PO PAIN Last administered on 19:42; Start 01/27/17 at 16:00 Ascorbic Acid (Vitamin C) 1,000 mg DAILY PO Last administered on 02/05/17 09: 31; Start 01/28/17 at 09:00 Ondansetron HCl (Zofran Odt) 4 mg PRN Q6HRS PRN PO NAUSEA/VOMITING; Start at 16:45 Non-Formulary Medication 5 mg QID NEB ; Start 01/27/17 at 17:00; Status UNV Vitamin D (Vitamin D3) 400 unit DAILY PO Last administered on 01/29/17 09:51; Start 01/28/17 at 09:00; Stop 01/30/17 at 09:52; Status DC Albuterol/ Ipratropium (Duoneb) 3 ml STK-MED ONCE .ROUTE ; Start 01/27/17 at 16: 35; Stop 01/27/17 at 16:36; Status DC Albuterol/ Ipratropium (Duoneb) 3 ml RTQID NEB Last administered on 02/05/17 20:30; Start 01/27/17 at 20:00 Timolol Maleate (Timoptic 0.5% Oph) 1 drop BID OU Last administered on 19:43; Start 01/28/17 at 09:00 Quetiapine Fumarate (SEROquel) 12.5 mg QHS PO Last administered on 01/29/17 19: 55; Start 01/29/17 at 21:00; Stop 01/30/17 at 19:03; Status DC Vitamin D (Vitamin D3) 1,000 unit DAILY PO Last administered on 01/30/17 09:57 ; Start 01/31/17 at 09:00; Stop 01/31/17 at 09:00; Status DC Cyanocobalamin (Vitamin B-12) 1,000 mcg [id number] IM Last administered on 12:15; Start 01/30/17 at 10:30 Prenat Multivit/ [place]/Iron/Folic Ac (Multivitamin ) 1 tab DAILYBFRLUN PO Last administered on 02/05/17 11:33; Start 01/30/17 at 11:30 Vitamin D (Vitamin D3) 1,000 unit DAILY PO Last administered on 02/05/17 09:32 ; Start 01/31/17 at 09:00 Quetiapine Fumarate (SEROquel) 25 mg QHS PO Last administered on 01/31/17 20:38 ; Start 01/30/17 at 21:00; Stop 02/01/17 at 18:07; Status DC Quetiapine Fumarate (SEROquel) 37.5 mg QHS PO Last administered on 02/03/17 19: 42; Start 02/01/17 at 21:00; Stop 02/04/17 at 12:14; Status DC Quetiapine Fumarate (SEROquel) 50 mg QHS PO Last administered on 02/05/17 19: 42; Start 02/04/17 at 21:00 Quetiapine Fumarate (SEROquel) 12.5 mg DAILY PO Last administered on 02/05/17 09:30; Start 02/05/17 at 09:00 Quetiapine Fumarate (SEROquel) 12.5 mg DAILYWLUN PO ; Start 02/06/17 at 12:00 Trazodone HCl (Desyrel) 50 mg PRN QHS PRN PO INSOMNIA, MAY REPEAT X1 Last administered on 02/05/17 19:42; Start 02/05/17 at 18:45 Active Scripts Active Reported Timoptic (Timolol Maleate) 10 Ml Drops 1 Drop EACHEYE BID [duoneb] 5 Mg NEB QID [Vit D3 400units] 400 Units PO Acetaminophen 500 Mg Tablet 1,000 Mg PO PRN Q6HRS PRN Pantoprazole Sodium 40 Mg Tablet.dr 40 Mg PO BID Zofran (Ondansetron Hcl) 4 Mg Tablet 4 Mg PO PRN Q6HRS PRN Tramadol Hcl (Tramadol HCl) 50 Mg Tablet 50 Mg PO PRN Q6HRS PRN Lexapro (Escitalopram Oxalate) 10 Mg Tablet 10 Mg PO DAILY Meclizine Hcl 25 Mg Tablet 25 Mg PO TID Clonazepam 0.5 Mg Tablet 0.25 Mg PO PRN Q6HRS PRN Clonazepam 0.5 Mg Tablet 0.5 Mg PO PRN Q6HRS PRN Vitamin C (Ascorbic Acid) 1,000 Mg Tablet 1,000 Mg PO DAILY Finasteride 5 Mg Tablet 5 Mg PO DAILY Metoprolol Tartrate 50 Mg Tablet 50 Mg PO DAILY Plavix (Clopidogrel Bisulfate) 75 Mg Tablet 75 Mg PO DAILY Diagnosis: Problems: (1) Dementia 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
--- NOTE | 2017-02-06 00:55 | PN ---
DATE: 02/04/2017 PSYCHIATRIC PROGRESS NOTE This is a late entry of 02/04/2017 covers elements not covered in my initial note. SUBJECTIVE: Per nursing report, the patient spends much time in bed, complains of neck pain. X-ray neck was done we will defer to Dr. Lee/Dr. Murphy for this. REVIEW OF SYSTEMS: Short of breath , impaired ambulation. No CV, , GI system symptoms on review. MENTAL STATUS EXAM: Reasonably oriented. Speech coherent, hyperverbal at times. Abstraction fair, computation impaired, language function intact, attention span short. Mood and affect intermittently labile, anxious. LABORATORY DATA: Reviewed. IMPRESSION: Unchanged from initial note. Major depressive disorder with psychotic features, anxiety disorder, unspecified; cognitive disorder, unspecified. PLAN: Continue current psychotropics, Seroquel 12.5 mg a.m., 50 at bedtime, Lexapro 10 mg a day, Klonopin p.r.n. Adjust as indicated. JIM MCKEON MD DR: JUAN/betsy JOB#: [id number] / [id number]
[2017-02-06] MEDS: IPRATRPIUM/ALBUTEROL 0.5/2.5MG 3 ML NEBU. NEB SCH ×4 (05:43→20:49)
[2017-02-06 06:20] VITALS: BP 117/65
[2017-02-06] MEDS: MECLIZINE 25 MG TABLET PO SCH ×3 (08:49→19:10)
[2017-02-06] MEDS: CLOPIDOGREL BISULFATE 75 MG TABLET PO SCH (08:49)
[2017-02-06] MEDS: ESCITALOPRAM 10 MG TABLET. PO SCH (08:49)
[2017-02-06] MEDS: TIMOLOL 0.5% OPHTH SOLUTION 5ML BOTTLE. OU SCH ×2 (08:49→19:11)
[2017-02-06] MEDS: FINASTERIDE 5 MG TABLET PO SCH (08:49)
[2017-02-06] MEDS: METOPROLOL SUCC 24HR ER 50 MG TAB.ER.24H. PO SCH (08:51)
[2017-02-06] MEDS: QUEtiapine 25 MG TABLET. PO SCH ×3 (08:51→19:09)
[2017-02-06] MEDS: PANTOPRAZOLE 40 MG TABLET. PO SCH ×2 (08:54→19:10)
[2017-02-06] MEDS: CHOLECALCIFEROL (VITAMIN D3) 1,000 UNIT TABLET PO SCH (08:54)
[2017-02-06] MEDS: ASCORBIC ACID 500 MG TABLET PO SCH (08:54)
[2017-02-06] MEDS: PRENATAL MULTIVITAMIN TABLET. PO SCH (13:01)
[2017-02-06] MEDS: TRAMADOL 50 MG TABLET. PO PRN ×2 (13:15→19:29)
[2017-02-06 15:44] VITALS: BP 109/71
--- NOTE | 2017-02-06 21:04 | PDOC ---
Exam Davon Demential Exam: Davon Note: Please also refer to the separate dictated note~for this date of service dictated separately.~Patient seen individually. Discussed the patient with Nursing staff reviewed the chart.~Reviewed interim history and current functioning. Reviewed vital signs,~Labs/ Radiology~and current medications noted below. Continue current treatment with the changes noted in the dictated addendum note Assessment: Vital Signs: Vital Signs Date Time Temp Pulse Resp B/P Pulse Ox O2 Delivery O2 Flow Rate FiO2 02/06/17 20:50 98 Nasal Cannula 2.0 02/06/17 19:29 16 02/06/17 15:44 98.3 73 109/71 I&O Intake and Output 02/06/17 07:00 Intake Total 720 ml Balance 720 ml Intake Oral 720 ml Current Medications: Meds: Current Medications Acetaminophen (Tylenol) 650 mg PRN Q6HRS PRN PO PAIN / TEMP; Start 01/27/17 at 15:00; Status Cancel Multi-Ingredient Ointment (Analgesic [place]) 1 aleks PRN QID PRN TP MUSCLE PAIN; Start 01/27/17 at 15:30 Al Hydroxide/Mg Hydroxide (Mylanta Plus Xs) 15 ml PRN AFTMEALHC PRN PO DYSPEPSIA; Start 01/27/17 at 15:30 Magnesium Hydroxide (Milk Of Magnesia) 2,400 mg PRN QHS PRN PO CONSTIPATION Last administered on 01/30/17 13:05; Start 01/27/17 at 15:30 Acetaminophen (Tylenol) 1,000 mg PRN Q6HRS PRN PO PAIN / TEMP; Start 01/27/17 at 16:00 Clonazepam (Klonopin) 0.25 mg PRN Q6HRS PRN PO ANXIETY / AGITATION; Start at 16:00 Clonazepam (Klonopin) 0.5 mg PRN Q6HRS PRN PO ANXIETY / AGITATION; Start at 16:00 Clopidogrel Bisulfate (Plavix) 75 mg DAILY PO Last administered on 02/06/17 08 :49; Start 01/28/17 at 09:00 Escitalopram Oxalate (Lexapro) 10 mg DAILY PO Last administered on 02/06/17 08 :49; Start 01/28/17 at 09:00 Finasteride (Proscar) 5 mg DAILY PO Last administered on 02/06/17 08:49; Start 01/28/17 at 09:00 Meclizine HCl (Antivert) 25 mg TID PO Last administered on 02/06/17 19:10; Start 01/27/17 at 21:00 Metoprolol Succinate (Toprol Xl) 50 mg DAILY PO Last administered on 02/06/17 08:51; Start 01/28/17 at 09:00 Pantoprazole Sodium (Protonix) 40 mg BID PO Last administered on 02/06/17 19: 10; Start 01/27/17 at 21:00 Tramadol HCl (Ultram) 50 mg PRN Q6HRS PRN PO PAIN Last administered on 19:29; Start 01/27/17 at 16:00 Ascorbic Acid (Vitamin C) 1,000 mg DAILY PO Last administered on 02/06/17 08: 54; Start 01/28/17 at 09:00 Ondansetron HCl (Zofran Odt) 4 mg PRN Q6HRS PRN PO NAUSEA/VOMITING; Start at 16:45 Non-Formulary Medication 5 mg QID NEB ; Start 01/27/17 at 17:00; Status UNV Vitamin D (Vitamin D3) 400 unit DAILY PO Last administered on 01/29/17 09:51; Start 01/28/17 at 09:00; Stop 01/30/17 at 09:52; Status DC Albuterol/ Ipratropium (Duoneb) 3 ml STK-MED ONCE .ROUTE ; Start 01/27/17 at 16: 35; Stop 01/27/17 at 16:36; Status DC Albuterol/ Ipratropium (Duoneb) 3 ml RTQID NEB Last administered on 02/06/17 20:49; Start 01/27/17 at 20:00 Timolol Maleate (Timoptic 0.5% Oph) 1 drop BID OU Last administered on 19:11; Start 01/28/17 at 09:00 Quetiapine Fumarate (SEROquel) 12.5 mg QHS PO Last administered on 01/29/17 19: 55; Start 01/29/17 at 21:00; Stop 01/30/17 at 19:03; Status DC Vitamin D (Vitamin D3) 1,000 unit DAILY PO Last administered on 01/30/17 09:57 ; Start 01/31/17 at 09:00; Stop 01/31/17 at 09:00; Status DC Cyanocobalamin (Vitamin B-12) 1,000 mcg [id number] IM Last administered on 12:15; Start 01/30/17 at 10:30 Prenat Multivit/ [place]/Iron/Folic Ac (Multivitamin ) 1 tab DAILYBFRLUN PO Last administered on 02/06/17 13:01; Start 01/30/17 at 11:30 Vitamin D (Vitamin D3) 1,000 unit DAILY PO Last administered on 02/06/17 08:54 ; Start 01/31/17 at 09:00 Quetiapine Fumarate (SEROquel) 25 mg QHS PO Last administered on 01/31/17 20:38 ; Start 01/30/17 at 21:00; Stop 02/01/17 at 18:07; Status DC Quetiapine Fumarate (SEROquel) 37.5 mg QHS PO Last administered on 02/03/17 19: 42; Start 02/01/17 at 21:00; Stop 02/04/17 at 12:14; Status DC Quetiapine Fumarate (SEROquel) 50 mg QHS PO Last administered on 02/06/17 19: 09; Start 02/04/17 at 21:00 Quetiapine Fumarate (SEROquel) 12.5 mg DAILY PO Last administered on 02/06/17 08:51; Start 02/05/17 at 09:00 Quetiapine Fumarate (SEROquel) 12.5 mg DAILYWLUN PO Last administered on 13:01; Start 02/06/17 at 12:00 Trazodone HCl (Desyrel) 50 mg PRN QHS PRN PO INSOMNIA, MAY REPEAT X1 Last administered on 02/05/17 19:42; Start 02/05/17 at 18:45 Active Scripts Active Reported Timoptic (Timolol Maleate) 10 Ml Drops 1 Drop EACHEYE BID [duoneb] 5 Mg NEB QID [Vit D3 400units] 400 Units PO Acetaminophen 500 Mg Tablet 1,000 Mg PO PRN Q6HRS PRN Pantoprazole Sodium 40 Mg Tablet.dr 40 Mg PO BID Zofran (Ondansetron Hcl) 4 Mg Tablet 4 Mg PO PRN Q6HRS PRN Tramadol Hcl (Tramadol HCl) 50 Mg Tablet 50 Mg PO PRN Q6HRS PRN Lexapro (Escitalopram Oxalate) 10 Mg Tablet 10 Mg PO DAILY Meclizine Hcl 25 Mg Tablet 25 Mg PO TID Clonazepam 0.5 Mg Tablet 0.25 Mg PO PRN Q6HRS PRN Clonazepam 0.5 Mg Tablet 0.5 Mg PO PRN Q6HRS PRN Vitamin C (Ascorbic Acid) 1,000 Mg Tablet 1,000 Mg PO DAILY Finasteride 5 Mg Tablet 5 Mg PO DAILY Metoprolol Tartrate 50 Mg Tablet 50 Mg PO DAILY Plavix (Clopidogrel Bisulfate) 75 Mg Tablet 75 Mg PO DAILY Diagnosis: Problems: (1) Dementia 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
--- NOTE | 2017-02-07 04:43 | PN ---
DATE: 02/05/2017 This late entry 02/05/2017 covers elements not covered in my initial note. SUBJECTIVE: Overall, per nursing report, the patient remains somewhat anxious at times, but otherwise cooperative, slept 4-1/2 hours. REVIEW OF SYSTEMS: Ambulation impaired with a walker. Complains of neck pain. X-rays shows degenerative joint disease, shortness of breath on O2 supplements. No CV, , GI system symptoms on review. MENTAL STATUS EXAMINATION: Reasonably oriented. Speech coherent, hyperverbal at times, obstruction fair, computation impaired. Language function intact. Mood and affect somewhat anxious, labile. LABORATORY DATA: Reviewed. ASSESSMENT: Major depressive disorder with psychotic features, rule out bipolar 1 disorder mixed with psychotic features. PLAN: Continue Seroquel 50 mg at bedtime, start Seroquel 12.5 mg at noon, start trazodone 50 at bedtime p.r.n., february repeat x 1 for insomnia, Lexapro 10 mg a day. Adjust further as clinically indicated. Continue Seroquel 12.5 mg in the morning. MAN Angelica MCKEON MD DR: JUAN/betsy JOB#: [id number] / [id number]
[2017-02-07 05:15] VITALS: BP 103/53
[2017-02-07] MEDS: IPRATRPIUM/ALBUTEROL 0.5/2.5MG 3 ML NEBU. NEB SCH ×4 (05:35→20:11)
[2017-02-07] MEDS: MECLIZINE 25 MG TABLET PO SCH ×3 (08:27→19:03)
[2017-02-07] MEDS: CLOPIDOGREL BISULFATE 75 MG TABLET PO SCH (08:27)
[2017-02-07] MEDS: ASCORBIC ACID 500 MG TABLET PO SCH (08:28)
[2017-02-07] MEDS: FINASTERIDE 5 MG TABLET PO SCH (08:28)
[2017-02-07] MEDS: ESCITALOPRAM 10 MG TABLET. PO SCH (08:28)
[2017-02-07] MEDS: CHOLECALCIFEROL (VITAMIN D3) 1,000 UNIT TABLET PO SCH (08:28)
[2017-02-07] MEDS: PANTOPRAZOLE 40 MG TABLET. PO SCH ×2 (08:28→19:03)
[2017-02-07] MEDS: METOPROLOL SUCC 24HR ER 50 MG TAB.ER.24H. PO SCH (08:29)
[2017-02-07] MEDS: QUEtiapine 25 MG TABLET. PO SCH ×3 (08:31→19:03)
[2017-02-07] MEDS: TIMOLOL 0.5% OPHTH SOLUTION 5ML BOTTLE. OU SCH ×2 (08:31→19:04)
[2017-02-07] MEDS: PRENATAL MULTIVITAMIN TABLET. PO SCH (12:18)
[2017-02-07 15:40] VITALS: BP 184/64
[2017-02-07] MEDS: TRAMADOL 50 MG TABLET. PO PRN (19:12)
--- NOTE | 2017-02-07 21:06 | PDOC ---
Exam Davon Demential Exam: Davon Note: Please also refer to the separate dictated note~for this date of service dictated separately.~Patient seen individually. Discussed the patient with Nursing staff reviewed the chart.~Reviewed interim history and current functioning. Reviewed vital signs,~Labs/ Radiology~and current medications noted below. Continue current treatment with the changes noted in the dictated addendum note Assessment: Vital Signs: Vital Signs Date Time Temp Pulse Resp B/P Pulse Ox O2 Delivery O2 Flow Rate FiO2 02/07/17 20:13 99 Nasal Cannula 2.0 02/07/17 19:12 18 02/07/17 15:40 97.9 85 184/64 I&O Intake and Output 02/07/17 07:00 Intake Total 960 ml Balance 960 ml Intake Oral 960 ml # Voids 4 Current Medications: Meds: Current Medications Acetaminophen (Tylenol) 650 mg PRN Q6HRS PRN PO PAIN / TEMP; Start 01/27/17 at 15:00; Status Cancel Multi-Ingredient Ointment (Analgesic [place]) 1 aleks PRN QID PRN TP MUSCLE PAIN; Start 01/27/17 at 15:30 Al Hydroxide/Mg Hydroxide (Mylanta Plus Xs) 15 ml PRN AFTMEALHC PRN PO DYSPEPSIA; Start 01/27/17 at 15:30 Magnesium Hydroxide (Milk Of Magnesia) 2,400 mg PRN QHS PRN PO CONSTIPATION Last administered on 01/30/17 13:05; Start 01/27/17 at 15:30 Acetaminophen (Tylenol) 1,000 mg PRN Q6HRS PRN PO PAIN / TEMP; Start 01/27/17 at 16:00 Clonazepam (Klonopin) 0.25 mg PRN Q6HRS PRN PO ANXIETY / AGITATION; Start at 16:00 Clonazepam (Klonopin) 0.5 mg PRN Q6HRS PRN PO ANXIETY / AGITATION; Start at 16:00 Clopidogrel Bisulfate (Plavix) 75 mg DAILY PO Last administered on 02/07/17 08 :27; Start 01/28/17 at 09:00 Escitalopram Oxalate (Lexapro) 10 mg DAILY PO Last administered on 02/07/17 08 :28; Start 01/28/17 at 09:00 Finasteride (Proscar) 5 mg DAILY PO Last administered on 02/07/17 08:28; Start 01/28/17 at 09:00 Meclizine HCl (Antivert) 25 mg TID PO Last administered on 02/07/17 19:03; Start 01/27/17 at 21:00 Metoprolol Succinate (Toprol Xl) 50 mg DAILY PO Last administered on 02/06/17 08:51; Start 01/28/17 at 09:00 Pantoprazole Sodium (Protonix) 40 mg BID PO Last administered on 02/07/17 19: 03; Start 01/27/17 at 21:00 Tramadol HCl (Ultram) 50 mg PRN Q6HRS PRN PO PAIN Last administered on 19:12; Start 01/27/17 at 16:00 Ascorbic Acid (Vitamin C) 1,000 mg DAILY PO Last administered on 02/07/17 08: 28; Start 01/28/17 at 09:00 Ondansetron HCl (Zofran Odt) 4 mg PRN Q6HRS PRN PO NAUSEA/VOMITING; Start at 16:45 Non-Formulary Medication 5 mg QID NEB ; Start 01/27/17 at 17:00; Status UNV Vitamin D (Vitamin D3) 400 unit DAILY PO Last administered on 01/29/17 09:51; Start 01/28/17 at 09:00; Stop 01/30/17 at 09:52; Status DC Albuterol/ Ipratropium (Duoneb) 3 ml STK-MED ONCE .ROUTE ; Start 01/27/17 at 16: 35; Stop 01/27/17 at 16:36; Status DC Albuterol/ Ipratropium (Duoneb) 3 ml RTQID NEB Last administered on 02/07/17 20:11; Start 01/27/17 at 20:00 Timolol Maleate (Timoptic 0.5% Oph) 1 drop BID OU Last administered on 19:04; Start 01/28/17 at 09:00 Quetiapine Fumarate (SEROquel) 12.5 mg QHS PO Last administered on 01/29/17 19: 55; Start 01/29/17 at 21:00; Stop 01/30/17 at 19:03; Status DC Vitamin D (Vitamin D3) 1,000 unit DAILY PO Last administered on 01/30/17 09:57 ; Start 01/31/17 at 09:00; Stop 01/31/17 at 09:00; Status DC Cyanocobalamin (Vitamin B-12) 1,000 mcg [id number] IM Last administered on 12:15; Start 01/30/17 at 10:30 Prenat Multivit/ [place]/Iron/Folic Ac (Multivitamin ) 1 tab DAILYBFRLUN PO Last administered on 02/07/17 12:18; Start 01/30/17 at 11:30 Vitamin D (Vitamin D3) 1,000 unit DAILY PO Last administered on 02/07/17 08:28 ; Start 01/31/17 at 09:00 Quetiapine Fumarate (SEROquel) 25 mg QHS PO Last administered on 01/31/17 20:38 ; Start 01/30/17 at 21:00; Stop 02/01/17 at 18:07; Status DC Quetiapine Fumarate (SEROquel) 37.5 mg QHS PO Last administered on 02/03/17 19: 42; Start 02/01/17 at 21:00; Stop 02/04/17 at 12:14; Status DC Quetiapine Fumarate (SEROquel) 50 mg QHS PO Last administered on 02/07/17 19: 03; Start 02/04/17 at 21:00 Quetiapine Fumarate (SEROquel) 12.5 mg DAILY PO Last administered on 02/07/17 08:31; Start 02/05/17 at 09:00 Quetiapine Fumarate (SEROquel) 12.5 mg DAILYWLUN PO Last administered on 12:16; Start 02/06/17 at 12:00 Trazodone HCl (Desyrel) 50 mg PRN QHS PRN PO INSOMNIA, MAY REPEAT X1 Last administered on 02/05/17 19:42; Start 02/05/17 at 18:45 Active Scripts Active Reported Timoptic (Timolol Maleate) 10 Ml Drops 1 Drop EACHEYE BID [duoneb] 5 Mg NEB QID [Vit D3 400units] 400 Units PO Acetaminophen 500 Mg Tablet 1,000 Mg PO PRN Q6HRS PRN Pantoprazole Sodium 40 Mg Tablet.dr 40 Mg PO BID Zofran (Ondansetron Hcl) 4 Mg Tablet 4 Mg PO PRN Q6HRS PRN Tramadol Hcl (Tramadol HCl) 50 Mg Tablet 50 Mg PO PRN Q6HRS PRN Lexapro (Escitalopram Oxalate) 10 Mg Tablet 10 Mg PO DAILY Meclizine Hcl 25 Mg Tablet 25 Mg PO TID Clonazepam 0.5 Mg Tablet 0.25 Mg PO PRN Q6HRS PRN Clonazepam 0.5 Mg Tablet 0.5 Mg PO PRN Q6HRS PRN Vitamin C (Ascorbic Acid) 1,000 Mg Tablet 1,000 Mg PO DAILY Finasteride 5 Mg Tablet 5 Mg PO DAILY Metoprolol Tartrate 50 Mg Tablet 50 Mg PO DAILY Plavix (Clopidogrel Bisulfate) 75 Mg Tablet 75 Mg PO DAILY Diagnosis: Problems: (1) Dementia with behavioral problem (2) Gamekeeper's thumb of left hand (3) Anxiety disorder (4) Dementia, vascular, with depression (5) Impulse control disorder (6) Major depressive disorder, recurrent episode JIM MCKEON MD Feb 07, 2017 21:06
--- NOTE | 2017-02-07 22:52 | PN ---
DATE: 02/06/2017 PSYCHIATRIC PROGRESS NOTE This is late entry of 02/06/2017, covers elements not covered in my initial note. SUBJECTIVE: Per nursing report, the patient slept 8 hours the previous night, used trazodone during the day on 02/06/2017, withdrawn to his room, refused lunch secondary to GI discomfort, refused dinner, we will defer to Dr. Lee for medical management. REVIEW OF SYSTEMS: Shortness of breath, on O2 supplement. Impaired ambulation with a walker. No CV, , GI system symptoms on review other than above. MENTAL STATUS EXAMINATION: Reasonably oriented. Speech is coherent, still somewhat hyperverbal, abstraction fair, computation impaired, language function intact. Mood and affect remains intermittently labile. LABORATORY DATA: Reviewed. IMPRESSION: Unchanged from initial note. PLAN: Continue psychotropics mentioned in my initial note. Adjust further as clinically indicated. MAN Angelica MCKEON MD DR: JUAN/betsy JOB#: [id number] / [id number]
[2017-02-08] MEDS: IPRATRPIUM/ALBUTEROL 0.5/2.5MG 3 ML NEBU. NEB SCH ×4 (05:21→20:23)
[2017-02-08 05:45] VITALS: BP 147/82
[2017-02-08] MEDS: MECLIZINE 25 MG TABLET PO SCH ×3 (08:07→20:32)
[2017-02-08] MEDS: CHOLECALCIFEROL (VITAMIN D3) 1,000 UNIT TABLET PO SCH (08:07)
[2017-02-08] MEDS: TIMOLOL 0.5% OPHTH SOLUTION 5ML BOTTLE. OU SCH ×2 (08:07→20:33)
[2017-02-08] MEDS: METOPROLOL SUCC 24HR ER 50 MG TAB.ER.24H. PO SCH (08:08)
[2017-02-08] MEDS: ASCORBIC ACID 500 MG TABLET PO SCH (08:09)
[2017-02-08] MEDS: QUEtiapine 25 MG TABLET. PO SCH ×3 (08:09→20:32)
[2017-02-08] MEDS: CLOPIDOGREL BISULFATE 75 MG TABLET PO SCH (08:09)
[2017-02-08] MEDS: ESCITALOPRAM 10 MG TABLET. PO SCH (08:09)
[2017-02-08] MEDS: FINASTERIDE 5 MG TABLET PO SCH (08:10)
[2017-02-08] MEDS: PANTOPRAZOLE 40 MG TABLET. PO SCH ×2 (08:17→20:32)
[2017-02-08] MEDS: PRENATAL MULTIVITAMIN TABLET. PO SCH (11:28)
[2017-02-08] MEDS: TRAMADOL 50 MG TABLET. PO PRN ×2 (11:40→20:39)
[2017-02-08 15:43] VITALS: BP 138/71
--- NOTE | 2017-02-08 21:09 | PDOC ---
Exam Davon Demential Exam: Davon Note: Please also refer to the separate dictated note~for this date of service dictated separately.~Patient seen individually. Discussed the patient with Nursing staff reviewed the chart.~Reviewed interim history and current functioning. Reviewed vital signs,~Labs/ Radiology~and current medications noted below. Continue current treatment with the changes noted in the dictated addendum note Assessment: Vital Signs: Vital Signs Date Time Temp Pulse Resp B/P Pulse Ox O2 Delivery O2 Flow Rate FiO2 02/08/17 20:39 20 Nasal Cannula 2.0 02/08/17 20:24 100 02/08/17 15:43 98.5 76 138/71 I&O Intake and Output 02/08/17 07:00 Intake Total 600 ml Balance 600 ml Intake Oral 600 ml # Bowel Movements 1 Current Medications: Meds: Current Medications Acetaminophen (Tylenol) 650 mg PRN Q6HRS PRN PO PAIN / TEMP; Start 01/27/17 at 15:00; Status Cancel Multi-Ingredient Ointment (Analgesic [place]) 1 aleks PRN QID PRN TP MUSCLE PAIN; Start 01/27/17 at 15:30 Al Hydroxide/Mg Hydroxide (Mylanta Plus Xs) 15 ml PRN AFTMEALHC PRN PO DYSPEPSIA; Start 01/27/17 at 15:30 Magnesium Hydroxide (Milk Of Magnesia) 2,400 mg PRN QHS PRN PO CONSTIPATION Last administered on 01/30/17 13:05; Start 01/27/17 at 15:30 Acetaminophen (Tylenol) 1,000 mg PRN Q6HRS PRN PO PAIN / TEMP; Start 01/27/17 at 16:00 Clonazepam (Klonopin) 0.25 mg PRN Q6HRS PRN PO ANXIETY / AGITATION; Start at 16:00 Clonazepam (Klonopin) 0.5 mg PRN Q6HRS PRN PO ANXIETY / AGITATION; Start at 16:00 Clopidogrel Bisulfate (Plavix) 75 mg DAILY PO Last administered on 02/08/17 08 :09; Start 01/28/17 at 09:00 Escitalopram Oxalate (Lexapro) 10 mg DAILY PO Last administered on 02/08/17 08 :09; Start 01/28/17 at 09:00 Finasteride (Proscar) 5 mg DAILY PO Last administered on 02/08/17 08:10; Start 01/28/17 at 09:00 Meclizine HCl (Antivert) 25 mg TID PO Last administered on 02/08/17 20:32; Start 01/27/17 at 21:00 Metoprolol Succinate (Toprol Xl) 50 mg DAILY PO Last administered on 02/08/17 08:08; Start 01/28/17 at 09:00 Pantoprazole Sodium (Protonix) 40 mg BID PO Last administered on 02/08/17 20: 32; Start 01/27/17 at 21:00 Tramadol HCl (Ultram) 50 mg PRN Q6HRS PRN PO PAIN Last administered on 20:39; Start 01/27/17 at 16:00 Ascorbic Acid (Vitamin C) 1,000 mg DAILY PO Last administered on 02/08/17 08: 09; Start 01/28/17 at 09:00 Ondansetron HCl (Zofran Odt) 4 mg PRN Q6HRS PRN PO NAUSEA/VOMITING; Start at 16:45 Non-Formulary Medication 5 mg QID NEB ; Start 01/27/17 at 17:00; Status UNV Vitamin D (Vitamin D3) 400 unit DAILY PO Last administered on 01/29/17 09:51; Start 01/28/17 at 09:00; Stop 01/30/17 at 09:52; Status DC Albuterol/ Ipratropium (Duoneb) 3 ml STK-MED ONCE .ROUTE ; Start 01/27/17 at 16: 35; Stop 01/27/17 at 16:36; Status DC Albuterol/ Ipratropium (Duoneb) 3 ml RTQID NEB Last administered on 02/08/17 20:23; Start 01/27/17 at 20:00 Timolol Maleate (Timoptic 0.5% [facility]) 1 drop BID OU Last administered on 20:33; Start 01/28/17 at 09:00 Quetiapine Fumarate (SEROquel) 12.5 mg QHS PO Last administered on 01/29/17 19: 55; Start 01/29/17 at 21:00; Stop 01/30/17 at 19:03; Status DC Vitamin D (Vitamin D3) 1,000 unit DAILY PO Last administered on 01/30/17 09:57 ; Start 01/31/17 at 09:00; Stop 01/31/17 at 09:00; Status DC Cyanocobalamin (Vitamin B-12) 1,000 mcg [id number] IM Last administered on 12:15; Start 01/30/17 at 10:30 Prenat Multivit/ [place]/Iron/Folic Ac (Multivitamin ) 1 tab DAILYBFRLUN PO Last administered on 02/08/17 11:28; Start 01/30/17 at 11:30 Vitamin D (Vitamin D3) 1,000 unit DAILY PO Last administered on 02/08/17 08:07 ; Start 01/31/17 at 09:00 Quetiapine Fumarate (SEROquel) 25 mg QHS PO Last administered on 01/31/17 20:38 ; Start 01/30/17 at 21:00; Stop 02/01/17 at 18:07; Status DC Quetiapine Fumarate (SEROquel) 37.5 mg QHS PO Last administered on 02/03/17 19: 42; Start 02/01/17 at 21:00; Stop 02/04/17 at 12:14; Status DC Quetiapine Fumarate (SEROquel) 50 mg QHS PO Last administered on 02/08/17 20: 32; Start 02/04/17 at 21:00 Quetiapine Fumarate (SEROquel) 12.5 mg DAILY PO Last administered on 02/08/17 08:09; Start 02/05/17 at 09:00 Quetiapine Fumarate (SEROquel) 12.5 mg DAILYWLUN PO Last administered on 11:29; Start 02/06/17 at 12:00 Trazodone HCl (Desyrel) 50 mg PRN QHS PRN PO INSOMNIA, MAY REPEAT X1 Last administered on 02/05/17 19:42; Start 02/05/17 at 18:45 Active Scripts Active Reported Timoptic (Timolol Maleate) 10 Ml Drops 1 Drop EACHEYE BID [duoneb] 5 Mg NEB QID [Vit D3 400units] 400 Units PO Acetaminophen 500 Mg Tablet 1,000 Mg PO PRN Q6HRS PRN Pantoprazole Sodium 40 Mg Tablet.dr 40 Mg PO BID Zofran (Ondansetron Hcl) 4 Mg Tablet 4 Mg PO PRN Q6HRS PRN Tramadol Hcl (Tramadol HCl) 50 Mg Tablet 50 Mg PO PRN Q6HRS PRN Lexapro (Escitalopram Oxalate) 10 Mg Tablet 10 Mg PO DAILY Meclizine Hcl 25 Mg Tablet 25 Mg PO TID Clonazepam 0.5 Mg Tablet 0.25 Mg PO PRN Q6HRS PRN Clonazepam 0.5 Mg Tablet 0.5 Mg PO PRN Q6HRS PRN Vitamin C (Ascorbic Acid) 1,000 Mg Tablet 1,000 Mg PO DAILY Finasteride 5 Mg Tablet 5 Mg PO DAILY Metoprolol Tartrate 50 Mg Tablet 50 Mg PO DAILY Plavix (Clopidogrel Bisulfate) 75 Mg Tablet 75 Mg PO DAILY Diagnosis: Problems: (1) 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
[2017-02-09] MEDS: IPRATRPIUM/ALBUTEROL 0.5/2.5MG 3 ML NEBU. NEB SCH ×4 (05:28→20:01)
[2017-02-09 06:36] VITALS: BP 116/65
[2017-02-09] MEDS: TIMOLOL 0.5% OPHTH SOLUTION 5ML BOTTLE. OU SCH ×2 (08:49→20:53)
[2017-02-09] MEDS: FINASTERIDE 5 MG TABLET PO SCH (08:49)
[2017-02-09] MEDS: QUEtiapine 25 MG TABLET. PO SCH ×3 (08:50→20:52)
[2017-02-09] MEDS: PANTOPRAZOLE 40 MG TABLET. PO SCH ×2 (08:50→20:53)
[2017-02-09] MEDS: CHOLECALCIFEROL (VITAMIN D3) 1,000 UNIT TABLET PO SCH (08:50)
[2017-02-09] MEDS: METOPROLOL SUCC 24HR ER 50 MG TAB.ER.24H. PO SCH (08:50)
[2017-02-09] MEDS: CLOPIDOGREL BISULFATE 75 MG TABLET PO SCH (08:50)
[2017-02-09] MEDS: ASCORBIC ACID 500 MG TABLET PO SCH (08:50)
[2017-02-09] MEDS: MECLIZINE 25 MG TABLET PO SCH ×3 (08:50→20:53)
[2017-02-09] MEDS: ESCITALOPRAM 10 MG TABLET. PO SCH (08:51)
[2017-02-09] MEDS: PRENATAL MULTIVITAMIN TABLET. PO SCH (08:51)
[2017-02-09] MEDS: TRAMADOL 50 MG TABLET. PO PRN ×2 (08:58→20:56)
[2017-02-09 15:55] VITALS: BP 125/82
--- NOTE | 2017-02-09 20:10 | PDOC ---
Exam Davon Demential Exam: Davon Note: Please also refer to the separate dictated note~for this date of service dictated separately.~Patient seen individually. Discussed the patient with Nursing staff reviewed the chart.~Reviewed interim history and current functioning. Reviewed vital signs,~Labs/ Radiology~and current medications noted below. Continue current treatment with the changes noted in the dictated addendum note Assessment: Vital Signs: Vital Signs Date Time Temp Pulse Resp B/P Pulse Ox O2 Delivery O2 Flow Rate FiO2 02/09/17 20:00 100 Nasal Cannula 2.0 02/09/17 19:34 20 02/09/17 15:55 97.6 81 125/82 I&O Intake and Output 02/09/17 07:00 Intake Total 720 ml Balance 720 ml Intake Oral 720 ml Current Medications: Meds: Current Medications Acetaminophen (Tylenol) 650 mg PRN Q6HRS PRN PO PAIN / TEMP; Start 01/27/17 at 15:00; Status Cancel Multi-Ingredient Ointment (Analgesic [place]) 1 aleks PRN QID PRN TP MUSCLE PAIN; Start 01/27/17 at 15:30 Al Hydroxide/Mg Hydroxide (Mylanta Plus Xs) 15 ml PRN AFTMEALHC PRN PO DYSPEPSIA; Start 01/27/17 at 15:30 Magnesium Hydroxide (Milk Of Magnesia) 2,400 mg PRN QHS PRN PO CONSTIPATION Last administered on 01/30/17 13:05; Start 01/27/17 at 15:30 Acetaminophen (Tylenol) 1,000 mg PRN Q6HRS PRN PO PAIN / TEMP; Start 01/27/17 at 16:00 Clonazepam (Klonopin) 0.25 mg PRN Q6HRS PRN PO ANXIETY / AGITATION; Start at 16:00 Clonazepam (Klonopin) 0.5 mg PRN Q6HRS PRN PO ANXIETY / AGITATION; Start at 16:00 Clopidogrel Bisulfate (Plavix) 75 mg DAILY PO Last administered on 02/09/17 08 :50; Start 01/28/17 at 09:00 Escitalopram Oxalate (Lexapro) 10 mg DAILY PO Last administered on 02/09/17 08 :51; Start 01/28/17 at 09:00 Finasteride (Proscar) 5 mg DAILY PO Last administered on 02/09/17 08:49; Start 01/28/17 at 09:00 Meclizine HCl (Antivert) 25 mg TID PO Last administered on 02/09/17 14:57; Start 01/27/17 at 21:00 Metoprolol Succinate (Toprol Xl) 50 mg DAILY PO Last administered on 02/09/17 08:50; Start 01/28/17 at 09:00 Pantoprazole Sodium (Protonix) 40 mg BID PO Last administered on 02/09/17 08: 50; Start 01/27/17 at 21:00 Tramadol HCl (Ultram) 50 mg PRN Q6HRS PRN PO PAIN Last administered on 08:58; Start 01/27/17 at 16:00 Ascorbic Acid (Vitamin C) 1,000 mg DAILY PO Last administered on 02/09/17 08: 50; Start 01/28/17 at 09:00 Ondansetron HCl (Zofran Odt) 4 mg PRN Q6HRS PRN PO NAUSEA/VOMITING; Start at 16:45 Non-Formulary Medication 5 mg QID NEB ; Start 01/27/17 at 17:00; Status UNV Vitamin D (Vitamin D3) 400 unit DAILY PO Last administered on 01/29/17 09:51; Start 01/28/17 at 09:00; Stop 01/30/17 at 09:52; Status DC Albuterol/ Ipratropium (Duoneb) 3 ml STK-MED ONCE .ROUTE ; Start 01/27/17 at 16: 35; Stop 01/27/17 at 16:36; Status DC Albuterol/ Ipratropium (Duoneb) 3 ml RTQID NEB Last administered on 02/09/17 20:01; Start 01/27/17 at 20:00 Timolol Maleate (Timoptic 0.5% Oph) 1 drop BID OU Last administered on 08:49; Start 01/28/17 at 09:00 Quetiapine Fumarate (SEROquel) 12.5 mg QHS PO Last administered on 01/29/17 19: 55; Start 01/29/17 at 21:00; Stop 01/30/17 at 19:03; Status DC Vitamin D (Vitamin D3) 1,000 unit DAILY PO Last administered on 01/30/17 09:57 ; Start 01/31/17 at 09:00; Stop 01/31/17 at 09:00; Status DC Cyanocobalamin (Vitamin B-12) 1,000 mcg [id number] IM Last administered on 12:15; Start 01/30/17 at 10:30 Prenat Multivit/ [place]/Iron/Folic Ac (Multivitamin ) 1 tab DAILYBFRLUN PO Last administered on 02/09/17 08:51; Start 01/30/17 at 11:30 Vitamin D (Vitamin D3) 1,000 unit DAILY PO Last administered on 02/09/17 08:50 ; Start 01/31/17 at 09:00 Quetiapine Fumarate (SEROquel) 25 mg QHS PO Last administered on 01/31/17 20:38 ; Start 01/30/17 at 21:00; Stop 02/01/17 at 18:07; Status DC Quetiapine Fumarate (SEROquel) 37.5 mg QHS PO Last administered on 02/03/17 19: 42; Start 02/01/17 at 21:00; Stop 02/04/17 at 12:14; Status DC Quetiapine Fumarate (SEROquel) 50 mg QHS PO Last administered on 02/08/17 20: 32; Start 02/04/17 at 21:00 Quetiapine Fumarate (SEROquel) 12.5 mg DAILY PO Last administered on 02/09/17 08:50; Start 02/05/17 at 09:00 Quetiapine Fumarate (SEROquel) 12.5 mg DAILYWLUN PO Last administered on 14:57; Start 02/06/17 at 12:00 Trazodone HCl (Desyrel) 50 mg PRN QHS PRN PO INSOMNIA, MAY REPEAT X1 Last administered on 02/05/17 19:42; Start 02/05/17 at 18:45; Stop 02/09/17 at 17:57 ; Status DC Trazodone HCl (Desyrel) 100 mg PRN QHS PRN PO INSOMNIA, MAY REPEAT X1; Start at 18:00 Active Scripts Active Reported Timoptic (Timolol Maleate) 10 Ml Drops 1 Drop EACHEYE BID [duoneb] 5 Mg NEB QID [Vit D3 400units] 400 Units PO Acetaminophen 500 Mg Tablet 1,000 Mg PO PRN Q6HRS PRN Pantoprazole Sodium 40 Mg Tablet.dr 40 Mg PO BID Zofran (Ondansetron Hcl) 4 Mg Tablet 4 Mg PO PRN Q6HRS PRN Tramadol Hcl (Tramadol HCl) 50 Mg Tablet 50 Mg PO PRN Q6HRS PRN Lexapro (Escitalopram Oxalate) 10 Mg Tablet 10 Mg PO DAILY Meclizine Hcl 25 Mg Tablet 25 Mg PO TID Clonazepam 0.5 Mg Tablet 0.25 Mg PO PRN Q6HRS PRN Clonazepam 0.5 Mg Tablet 0.5 Mg PO PRN Q6HRS PRN Vitamin C (Ascorbic Acid) 1,000 Mg Tablet 1,000 Mg PO DAILY Finasteride 5 Mg Tablet 5 Mg PO DAILY Metoprolol Tartrate 50 Mg Tablet 50 Mg PO DAILY Plavix (Clopidogrel Bisulfate) 75 Mg Tablet 75 Mg PO DAILY Diagnosis: Problems: (1) 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
--- NOTE | 2017-02-10 01:48 | PN ---
DATE: 02/07/2017 PSYCHIATRIC PROGRESS NOTE This is a late entry for 02/07/2017, covers elements not covered in my initial note. SUBJECTIVE: The patient remains hyperverbal, extremely talkative, as I met with him, somewhat circumstantial, wanting to know what percentage of memory loss he has because he needs to be able to make DPOA decisions for his who he believes is sick. He stays in his room much of the time, came out for dinner. REVIEW OF SYSTEMS: Short of breath on O2 supplements, impaired ambulation with a walker. No CV, , GI, eye system symptoms on review. MENTAL STATUS EXAM: Oriented to himself and situation. Speech is hyperverbal, abstraction fair, computation impaired, language function intact, attention span short. Mood and affect, somewhat anxious, labile. LABORATORY DATA: Reviewed. IMPRESSION: Unchanged from initial note including mood disorder, unspecified; history of major depressive disorder; major neurocognitive disorder, Alzheimer, vascular with depression, delusions. PLAN: Continue Klonopin p.r.n., Lexapro 10 mg a day, Seroquel 50 mg at bedtime and 12.5 mg a.m. and noon, trazodone at bedtime p.r.n. Adjust further as clinically indicated. MAN Angelica MCKEON MD DR: JUAN/betsy JOB#: [id number] / [id number]
--- NOTE | 2017-02-10 01:51 | PN ---
DATE: 02/08/2017 PSYCHIATRIC PROGRESS NOTE This is a late entry of 02/08/2017 covers elements not covered in my initial note. SUBJECTIVE: The patient was staffed at a treatment team meeting with the entire team reviewed his progress in fact that he would be going to a facility because his feels unsafe of him at home. Appetite 90% of meals, sleeping about 6 hours. REVIEW OF SYSTEMS: Short of breath on O2 supplement. Impaired ambulation with a walker. No CV, , GI, eye system symptoms on review. MENTAL STATUS EXAM: Oriented to himself and situation. Speech coherent, rapid, circumstantial in his thought processes. Abstraction fair, computation impaired, attention span short, language function intact. LABORATORY DATA: Reviewed. IMPRESSION: Unchanged from initial note. PLAN: Continue current psychotropics, adjust further as clinically indicated. Transition to a lower level of care next week. MAN Angelica MCKEON MD DR: JUAN/betsy JOB#: [id number] / [id number]
[2017-02-10] MEDS: IPRATRPIUM/ALBUTEROL 0.5/2.5MG 3 ML NEBU. NEB SCH ×4 (05:01→19:41)
[2017-02-10 06:43] VITALS: BP 120/61
[2017-02-10] MEDS: TIMOLOL 0.5% OPHTH SOLUTION 5ML BOTTLE. OU SCH ×2 (08:21→20:15)
[2017-02-10] MEDS: MECLIZINE 25 MG TABLET PO SCH ×3 (08:22→20:15)
[2017-02-10] MEDS: ESCITALOPRAM 10 MG TABLET. PO SCH (08:22)
[2017-02-10] MEDS: CLOPIDOGREL BISULFATE 75 MG TABLET PO SCH (08:22)
[2017-02-10] MEDS: QUEtiapine 25 MG TABLET. PO SCH ×3 (08:23→20:16)
[2017-02-10] MEDS: PANTOPRAZOLE 40 MG TABLET. PO SCH ×2 (08:23→20:16)
[2017-02-10] MEDS: FINASTERIDE 5 MG TABLET PO SCH (08:23)
[2017-02-10] MEDS: PRENATAL MULTIVITAMIN TABLET. PO SCH (08:24)
[2017-02-10] MEDS: ASCORBIC ACID 500 MG TABLET PO SCH (08:24)
[2017-02-10] MEDS: METOPROLOL SUCC 24HR ER 50 MG TAB.ER.24H. PO SCH (08:24)
[2017-02-10] MEDS: CHOLECALCIFEROL (VITAMIN D3) 1,000 UNIT TABLET PO SCH (08:24)
[2017-02-10] MEDS: TRAMADOL 50 MG TABLET. PO PRN ×2 (08:32→17:13)
[2017-02-10 09:36] LABS: BASO % 0 % (0-3); EOS # 0.3 x10^3/uL (0.0-0.7); EOS % 3 % (0-3); HEMATOCRIT 32.8 % (39.0-53.0); HEMOGLOBIN 10.2 g/dL (13.0-17.5); LYMPH # 2.5 x10^3/uL (1.0-4.8); LYMPH % 29 % (24-48); MEAN CORPUSCULAR HEMOGLOBIN 24 pg (25-35); MEAN CORPUSCULAR HGB CONC 31 g/dL (31-37); MEAN CORPUSCULAR VOLUME 76 fL (79-100); MONO # 0.3 x10^3/uL (0.0-1.1); MONO % 4 % (0-9); NEUT # 5.6 x10^3uL (1.8-7.7); NEUT % 64 % (31-73); PLATELET COUNT 291 x10^3/uL (140-400); RED BLOOD COUNT 4.33 x10^6/uL (4.30-5.70); RED CELL DISTRIBUTION WIDTH 21.6 % (11.5-14.5); WHITE BLOOD COUNT 8.7 x10^3/uL (4.0-11.0)
[2017-02-10 09:47] LABS: ALBUMIN/GLOBULIN RATIO 0.9 (1.0-1.7); CALCIUM 8.6 mg/dL (8.5-10.1); CREATININE 0.9 mg/dL (0.7-1.3); GFR 81.2; POTASSIUM 4.1 mmol/L (3.5-5.1); TOTAL BILIRUBIN 0.3 mg/dL (0.2-1.0); TOTAL PROTEIN 6.4 g/dL (6.4-8.2)
[2017-02-10 16:02] VITALS: BP 143/66
[2017-02-10] MEDS: traZODone 100 MG TABLET. PO PRN (20:18)
--- NOTE | 2017-02-10 22:06 | PDOC ---
Exam Davon Demential Exam: Davon Note: Please also refer to the separate dictated note~for this date of service dictated separately.~Patient seen individually. Discussed the patient with Nursing staff reviewed the chart.~Reviewed interim history and current functioning. Reviewed vital signs,~Labs/ Radiology~and current medications noted below. Continue current treatment with the changes noted in the dictated addendum note Assessment: Vital Signs: Vital Signs Date Time Temp Pulse Resp B/P Pulse Ox O2 Delivery O2 Flow Rate FiO2 02/10/17 19:40 97 Nasal Cannula 1.0 02/10/17 18:37 18 02/10/17 16:02 97.1 65 143/66 I&O Intake and Output 02/10/17 07:00 Intake Total 600 ml Balance 600 ml Intake Oral 600 ml Labs: Laboratory Tests Test 02/10/17 09:20 White Blood Count 8.7x10^3/uL (4.0-11.0) Red Blood Count 4.33x10^6/uL (4.30-5.70) Hemoglobin 10.2g/dL (13.0-17.5) L Hematocrit 32.8% (39.0-53.0) L Mean Corpuscular Volume 76fL (79-100) L Mean Corpuscular Hemoglobin 24pg (25-35) L Mean Corpuscular Hemoglobin Concent 31g/dL (31-37) Red Cell Distribution Width 21.6% (11.5-14.5) H Platelet Count 291x10^3/uL (140-400) Neutrophils (%) (Auto) 64% (31-73) Lymphocytes (%) (Auto) 29% (24-48) Monocytes (%) (Auto) 4% (0-9) Eosinophils (%) (Auto) 3% (0-3) Basophils (%) (Auto) 0% (0-3) Neutrophils # (Auto) 5.6x10^3uL (1.8-7.7) Lymphocytes # (Auto) 2.5x10^3/uL (1.0-4.8) Monocytes # (Auto) 0.3x10^3/uL (0.0-1.1) Eosinophils # (Auto) 0.3x10^3/uL (0.0-0.7) Basophils # (Auto) 0.0x10^3/uL (0.0-0.2) Sodium Level 145mmol/L (136-145) Potassium Level 4.1mmol/L (3.5-5.1) Chloride Level 108mmol/L (98-107) H Carbon Dioxide Level 28mmol/L (21-32) Anion Gap 9 (6-14) Blood Urea Nitrogen 17mg/dL (8-26) Creatinine 0.9mg/dL (0.7-1.3) Estimated GFR (Cockcroft-Gault) 81.2 BUN/Creatinine Ratio 19 (6-20) Glucose Level 94mg/dL (70-99) Calcium Level 8.6mg/dL (8.5-10.1) Total Bilirubin 0.3mg/dL (0.2-1.0) Aspartate Amino Transferase (AST) 10U/L (15-37) L Alanine Aminotransferase (ALT) 18U/L (16-63) Alkaline Phosphatase 95U/L (46-116) Total Protein 6.4g/dL (6.4-8.2) Albumin 3.0g/dL (3.4-5.0) L Albumin/Globulin Ratio 0.9 (1.0-1.7) L Current Medications: Meds: Current Medications Acetaminophen (Tylenol) 650 mg PRN Q6HRS PRN PO PAIN / TEMP; Start 01/27/17 at 15:00; Status Cancel Multi-Ingredient Ointment (Analgesic [place]) 1 aleks PRN QID PRN TP MUSCLE PAIN; Start 01/27/17 at 15:30 Al Hydroxide/Mg Hydroxide (Mylanta Plus Xs) 15 ml PRN AFTMEALHC PRN PO DYSPEPSIA; Start 01/27/17 at 15:30 Magnesium Hydroxide (Milk Of Magnesia) 2,400 mg PRN QHS PRN PO CONSTIPATION Last administered on 01/30/17t 13:05; Start 01/27/17 at 15:30 Acetaminophen (Tylenol) 1,000 mg PRN Q6HRS PRN PO PAIN / TEMP; Start 01/27/17 at 16:00 Clonazepam (Klonopin) 0.25 mg PRN Q6HRS PRN PO ANXIETY / AGITATION; Start at 16:00 Clonazepam (Klonopin) 0.5 mg PRN Q6HRS PRN PO ANXIETY / AGITATION; Start at 16:00 Clopidogrel Bisulfate (Plavix) 75 mg DAILY PO Last administered on 02/10/17 08 :22; Start 01/28/17 at 09:00 Escitalopram Oxalate (Lexapro) 10 mg DAILY PO Last administered on 02/10/17 08 :22; Start 01/28/17 at 09:00 Finasteride (Proscar) 5 mg DAILY PO Last administered on 02/10/17 08:23; Start 01/28/17 at 09:00 Meclizine HCl (Antivert) 25 mg TID PO Last administered on 02/10/17 20:15; Start 01/27/17 at 21:00 Metoprolol Succinate (Toprol Xl) 50 mg DAILY PO Last administered on 02/10/17 08:24; Start 01/28/17 at 09:00 Pantoprazole Sodium (Protonix) 40 mg BID PO Last administered on 02/10/17 20: 16; Start 01/27/17 at 21:00 Tramadol HCl (Ultram) 50 mg PRN Q6HRS PRN PO PAIN Last administered on 17:13; Start 01/27/17 at 16:00 Ascorbic Acid (Vitamin C) 1,000 mg DAILY PO Last administered on 02/10/17 08: 24; Start 01/28/17 at 09:00 Ondansetron HCl (Zofran Odt) 4 mg PRN Q6HRS PRN PO NAUSEA/VOMITING; Start at 16:45 Non-Formulary Medication 5 mg QID NEB ; Start 01/27/17 at 17:00; Status UNV Vitamin D (Vitamin D3) 400 unit DAILY PO Last administered on 01/29/17 09:51; Start 01/28/17 at 09:00; Stop 01/30/17 at 09:52; Status DC Albuterol/ Ipratropium (Duoneb) 3 ml STK-MED ONCE .ROUTE ; Start 01/27/17 at 16: 35; Stop 01/27/17 at 16:36; Status DC Albuterol/ Ipratropium (Duoneb) 3 ml RTQID NEB Last administered on 02/10/17 19:41; Start 01/27/17 at 20:00 Timolol Maleate (Timoptic 0.5% Oph) 1 drop BID OU Last administered on 20:15; Start 01/28/17 at 09:00 Quetiapine Fumarate (SEROquel) 12.5 mg QHS PO Last administered on 01/29/17 19: 55; Start 01/29/17 at 21:00; Stop 01/30/17 at 19:03; Status DC Vitamin D (Vitamin D3) 1,000 unit DAILY PO Last administered on 01/30/17 09:57 ; Start 01/31/17 at 09:00; Stop 01/31/17 at 09:00; Status DC Cyanocobalamin (Vitamin B-12) 1,000 mcg [id number] IM Last administered on 12:15; Start 01/30/17 at 10:30 Prenat Multivit/ [place]/Iron/Folic Ac (Multivitamin ) 1 tab DAILYBFRLUN PO Last administered on 02/10/17 08:24; Start 01/30/17 at 11:30 Vitamin D (Vitamin D3) 1,000 unit DAILY PO Last administered on 02/10/17 08:24 ; Start 01/31/17 at 09:00 Quetiapine Fumarate (SEROquel) 25 mg QHS PO Last administered on 01/31/17 20:38 ; Start 01/30/17 at 21:00; Stop 02/01/17 at 18:07; Status DC Quetiapine Fumarate (SEROquel) 37.5 mg QHS PO Last administered on 02/03/17 19: 42; Start 02/01/17 at 21:00; Stop 02/04/17 at 12:14; Status DC Quetiapine Fumarate (SEROquel) 50 mg QHS PO Last administered on 02/10/17 20: 16; Start 02/04/17 at 21:00 Quetiapine Fumarate (SEROquel) 12.5 mg DAILY PO Last administered on 02/10/17 08:23; Start 02/05/17 at 09:00 Quetiapine Fumarate (SEROquel) 12.5 mg DAILYWLUN PO Last administered on 13:05; Start 02/06/17 at 12:00 Trazodone HCl (Desyrel) 50 mg PRN QHS PRN PO INSOMNIA, MAY REPEAT X1 Last administered on 02/05/17 19:42; Start 02/05/17 at 18:45; Stop 02/09/17 at 17:57 ; Status DC Trazodone HCl (Desyrel) 100 mg PRN QHS PRN PO INSOMNIA, MAY REPEAT X1 Last administered on 02/10/17 20:18; Start 02/09/17 at 18:00 Active Scripts Active Reported Timoptic (Timolol Maleate) 10 Ml Drops 1 Drop EACHEYE BID [duoneb] 5 Mg NEB QID [Vit D3 400units] 400 Units PO Acetaminophen 500 Mg Tablet 1,000 Mg PO PRN Q6HRS PRN Pantoprazole Sodium 40 Mg Tablet.dr 40 Mg PO BID Zofran (Ondansetron Hcl) 4 Mg Tablet 4 Mg PO PRN Q6HRS PRN Tramadol Hcl (Tramadol HCl) 50 Mg Tablet 50 Mg PO PRN Q6HRS PRN Lexapro (Escitalopram Oxalate) 10 Mg Tablet 10 Mg PO DAILY Meclizine Hcl 25 Mg Tablet 25 Mg PO TID Clonazepam 0.5 Mg Tablet 0.25 Mg PO PRN Q6HRS PRN Clonazepam 0.5 Mg Tablet 0.5 Mg PO PRN Q6HRS PRN Vitamin C (Ascorbic Acid) 1,000 Mg Tablet 1,000 Mg PO DAILY Finasteride 5 Mg Tablet 5 Mg PO DAILY Metoprolol Tartrate 50 Mg Tablet 50 Mg PO DAILY Plavix (Clopidogrel Bisulfate) 75 Mg Tablet 75 Mg PO DAILY Diagnosis: Problems: (1) 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
[2017-02-11] MEDS: TRAMADOL 50 MG TABLET. PO PRN ×3 (01:58→17:09)
[2017-02-11] MEDS: IPRATRPIUM/ALBUTEROL 0.5/2.5MG 3 ML NEBU. NEB SCH ×4 (04:49→19:50)
[2017-02-11 06:23] VITALS: BP 106/68
--- NOTE | 2017-02-11 08:25 | OP ---
DATE OF SURGERY: 02/10/2017 This late entry for 02/10/2017 covers elements not covered in my initial note. SUBJECTIVE: Per nursing report, the patient remains somewhat anxious, withdrawn to his room. REVIEW OF SYSTEMS: Ambulation impaired with a walker, shortness of breath, on O2 supplements. No CV, , pulmonary, eye, ENT system symptoms on review. MENTAL STATUS EXAM: Reasonably oriented. Speech coherent, rapid at times. Abstraction fair, computation impaired, language function intact. Mood and affect remains somewhat anxious, labile. LABORATORY DATA: Reviewed. IMPRESSION: Unchanged from initial note. PLAN: Continue current psychotropics. Adjust further as clinically indicated. MAN Angelica MCKEON MD DR: JUAN/betsy JOB#: [id number] / [id number]
[2017-02-11] MEDS: FINASTERIDE 5 MG TABLET PO SCH (08:30)
[2017-02-11] MEDS: TIMOLOL 0.5% OPHTH SOLUTION 5ML BOTTLE. OU SCH ×2 (08:30→19:53)
[2017-02-11] MEDS: QUEtiapine 25 MG TABLET. PO SCH ×3 (08:30→19:51)
[2017-02-11] MEDS: MECLIZINE 25 MG TABLET PO SCH ×3 (08:30→20:56)
[2017-02-11] MEDS: CLOPIDOGREL BISULFATE 75 MG TABLET PO SCH (08:30)
[2017-02-11] MEDS: ESCITALOPRAM 10 MG TABLET. PO SCH (08:30)
[2017-02-11] MEDS: PANTOPRAZOLE 40 MG TABLET. PO SCH ×2 (08:30→19:50)
[2017-02-11] MEDS: ASCORBIC ACID 500 MG TABLET PO SCH (08:31)
[2017-02-11] MEDS: CHOLECALCIFEROL (VITAMIN D3) 1,000 UNIT TABLET PO SCH (08:31)
[2017-02-11] MEDS: PRENATAL MULTIVITAMIN TABLET. PO SCH (08:32)
[2017-02-11 12:14] VITALS: BP 121/75
[2017-02-11] MEDS: METOPROLOL SUCC 24HR ER 50 MG TAB.ER.24H. PO SCH (12:15)
[2017-02-11 16:13] VITALS: BP 144/70
[2017-02-11] MEDS: traZODone 100 MG TABLET. PO PRN (20:34)
--- NOTE | 2017-02-11 21:28 | PDOC ---
Exam Davon Demential Exam: Davon Note: Please also refer to the separate dictated note~for this date of service dictated separately.~Patient seen individually. Discussed the patient with Nursing staff reviewed the chart.~Reviewed interim history and current functioning. Reviewed vital signs,~Labs/ Radiology~and current medications noted below. Continue current treatment with the changes noted in the dictated addendum note Assessment: Vital Signs: Vital Signs Date Time Temp Pulse Resp B/P Pulse Ox O2 Delivery O2 Flow Rate FiO2 02/11/17 19:50 99 Nasal Cannula 2.0 02/11/17 19:12 20 02/11/17 16:13 97.8 78 144/70 I&O Intake and Output 02/11/17 07:00 Intake Total 1440 ml Balance 1440 ml Intake Oral 1440 ml Current Medications: Meds: Current Medications Acetaminophen (Tylenol) 650 mg PRN Q6HRS PRN PO PAIN / TEMP; Start 01/27/17 at 15:00; Status Cancel Multi-Ingredient Ointment (Analgesic [place]) 1 aleks PRN QID PRN TP MUSCLE PAIN; Start 01/27/17 at 15:30 Al Hydroxide/Mg Hydroxide (Mylanta Plus Xs) 15 ml PRN AFTMEALHC PRN PO DYSPEPSIA; Start 01/27/17 at 15:30 Magnesium Hydroxide (Milk Of Magnesia) 2,400 mg PRN QHS PRN PO CONSTIPATION Last administered on 01/30/17 13:05; Start 01/27/17 at 15:30 Acetaminophen (Tylenol) 1,000 mg PRN Q6HRS PRN PO PAIN / TEMP; Start 01/27/17 at 16:00 Clonazepam (Klonopin) 0.25 mg PRN Q6HRS PRN PO ANXIETY / AGITATION; Start at 16:00 Clonazepam (Klonopin) 0.5 mg PRN Q6HRS PRN PO ANXIETY / AGITATION; Start at 16:00 Clopidogrel Bisulfate (Plavix) 75 mg DAILY PO Last administered on 02/11/17 08 :30; Start 01/28/17 at 09:00 Escitalopram Oxalate (Lexapro) 10 mg DAILY PO Last administered on 02/11/17 08 :30; Start 01/28/17 at 09:00 Finasteride (Proscar) 5 mg DAILY PO Last administered on 02/11/17 08:30; Start 01/28/17 at 09:00 Meclizine HCl (Antivert) 25 mg TID PO Last administered on 02/11/17 20:56; Start 01/27/17 at 21:00 Metoprolol Succinate (Toprol Xl) 50 mg DAILY PO Last administered on 02/11/17 12:15; Start 01/28/17 at 09:00 Pantoprazole Sodium (Protonix) 40 mg BID PO Last administered on 02/11/17 19: 50; Start 01/27/17 at 21:00 Tramadol HCl (Ultram) 50 mg PRN Q6HRS PRN PO PAIN Last administered on 17:09; Start 01/27/17 at 16:00 Ascorbic Acid (Vitamin C) 1,000 mg DAILY PO Last administered on 02/11/17 08: 31; Start 01/28/17 at 09:00 Ondansetron HCl (Zofran Odt) 4 mg PRN Q6HRS PRN PO NAUSEA/VOMITING; Start at 16:45 Non-Formulary Medication 5 mg QID NEB ; Start 01/27/17 at 17:00; Status UNV Vitamin D (Vitamin D3) 400 unit DAILY PO Last administered on 01/29/17 09:51; Start 01/28/17 at 09:00; Stop 01/30/17 at 09:52; Status DC Albuterol/ Ipratropium (Duoneb) 3 ml STK-MED ONCE .ROUTE ; Start 01/27/17 at 16: 35; Stop 01/27/17 at 16:36; Status DC Albuterol/ Ipratropium (Duoneb) 3 ml RTQID NEB Last administered on 02/11/17 19:50; Start 01/27/17 at 20:00 Timolol Maleate (Timoptic 0.5% Oph) 1 drop BID OU Last administered on 19:53; Start 01/28/17 at 09:00 Quetiapine Fumarate (SEROquel) 12.5 mg QHS PO Last administered on 01/29/17 19: 55; Start 01/29/17 at 21:00; Stop 01/30/17 at 19:03; Status DC Vitamin D (Vitamin D3) 1,000 unit DAILY PO Last administered on 01/30/17 09:57 ; Start 01/31/17 at 09:00; Stop 01/31/17 at 09:00; Status DC Cyanocobalamin (Vitamin B-12) 1,000 mcg [id number] IM Last administered on 12:15; Start 01/30/17 at 10:30 Prenat Multivit/ Boomboat Operator/Iron/Folic Ac (Multivitamin ) 1 tab DAILYBFRLUN PO Last administered on 02/11/17 08:32; Start 01/30/17 at 11:30 Vitamin D (Vitamin D3) 1,000 unit DAILY PO Last administered on 02/11/17 08:31 ; Start 01/31/17 at 09:00 Quetiapine Fumarate (SEROquel) 25 mg QHS PO Last administered on 01/31/17 20:38 ; Start 01/30/17 at 21:00; Stop 02/01/17 at 18:07; Status DC Quetiapine Fumarate (SEROquel) 37.5 mg QHS PO Last administered on 02/03/17 19: 42; Start 02/01/17 at 21:00; Stop 02/04/17 at 12:14; Status DC Quetiapine Fumarate (SEROquel) 50 mg QHS PO Last administered on 02/11/17 19: 51; Start 02/04/17 at 21:00 Quetiapine Fumarate (SEROquel) 12.5 mg DAILY PO Last administered on 02/11/17 08:30; Start 02/05/17 at 09:00 Quetiapine Fumarate (SEROquel) 12.5 mg DAILYWLUN PO Last administered on 13:14; Start 02/06/17 at 12:00 Trazodone HCl (Desyrel) 50 mg PRN QHS PRN PO INSOMNIA, MAY REPEAT X1 Last administered on 02/05/17 19:42; Start 02/05/17 at 18:45; Stop 02/09/17 at 17:57 ; Status DC Trazodone HCl (Desyrel) 100 mg PRN QHS PRN PO INSOMNIA, MAY REPEAT X1 Last administered on 02/11/17 20:34; Start 02/09/17 at 18:00 Active Scripts Active Reported Timoptic (Timolol Maleate) 10 Ml Drops 1 Drop EACHEYE BID [duoneb] 5 Mg NEB QID [Vit D3 400units] 400 Units PO Acetaminophen 500 Mg Tablet 1,000 Mg PO PRN Q6HRS PRN Pantoprazole Sodium 40 Mg Tablet.dr 40 Mg PO BID Zofran (Ondansetron Hcl) 4 Mg Tablet 4 Mg PO PRN Q6HRS PRN Tramadol Hcl (Tramadol HCl) 50 Mg Tablet 50 Mg PO PRN Q6HRS PRN Lexapro (Escitalopram Oxalate) 10 Mg Tablet 10 Mg PO DAILY Meclizine Hcl 25 Mg Tablet 25 Mg PO TID Clonazepam 0.5 Mg Tablet 0.25 Mg PO PRN Q6HRS PRN Clonazepam 0.5 Mg Tablet 0.5 Mg PO PRN Q6HRS PRN Vitamin C (Ascorbic Acid) 1,000 Mg Tablet 1,000 Mg PO DAILY Finasteride 5 Mg Tablet 5 Mg PO DAILY Metoprolol Tartrate 50 Mg Tablet 50 Mg PO DAILY Plavix (Clopidogrel Bisulfate) 75 Mg Tablet 75 Mg PO DAILY Diagnosis: Problems: (1) Dementia with behavioral problem (2) Gamekeeper's thumb of left hand (3) Anxiety disorder (4) Dementia, vascular, with depression (5) Impulse control disorder (6) Major depressive disorder, recurrent episode JIM MCKEON MD Feb 11, 2017 21:28
--- NOTE | 2017-02-11 21:53 | PN ---
DATE: 02/09/2017 PSYCHIATRIC PROGRESS NOTE This is a late entry for 02/09/2017, covers elements not covered in my initial note. SUBJECTIVE: The patient has been isolative, still appears depressed, complains of chronic pain, shortness of breath on O2 supplements, impaired ambulation with a walker, went on an Easter egg cespedes. REVIEW OF SYSTEMS: No CV, , eye, ENT system symptoms on review as I met with him. MENTAL STATUS EXAM: Oriented to himself and situation. Speech coherent, pressured. Abstraction fair, computation impaired, language function intact, attention span short. Mood and affect remain somewhat anxious, labile. LABORATORY DATA: Reviewed. IMPRESSION: Unchanged from initial note. PLAN: Major depressive disorder with psychotic features, in partial remission; anxiety disorder, unspecified; cognitive disorder, unspecified; insomnia. PLAN: Increase trazodone to 100 mg at bedtime, may repeat x 1. Make further adjustments as clinically indicated. Maintain the rest of the psychotropics including the additional Seroquel 12.5 mg at noon. MAN Angelica MCKEON MD DR: JUAN/betsy JOB#: [id number] / [id number]
[2017-02-12] MEDS: IPRATRPIUM/ALBUTEROL 0.5/2.5MG 3 ML NEBU. NEB SCH ×4 (05:22→20:22)
[2017-02-12 06:12] VITALS: BP 169/83
[2017-02-12] MEDS: TIMOLOL 0.5% OPHTH SOLUTION 5ML BOTTLE. OU SCH ×2 (08:39→19:41)
[2017-02-12] MEDS: CLOPIDOGREL BISULFATE 75 MG TABLET PO SCH (08:40)
[2017-02-12] MEDS: FINASTERIDE 5 MG TABLET PO SCH (08:40)
[2017-02-12] MEDS: ESCITALOPRAM 10 MG TABLET. PO SCH (08:40)
[2017-02-12] MEDS: QUEtiapine 25 MG TABLET. PO SCH ×3 (08:40→19:39)
[2017-02-12] MEDS: PANTOPRAZOLE 40 MG TABLET. PO SCH ×2 (08:40→19:39)
[2017-02-12] MEDS: ASCORBIC ACID 500 MG TABLET PO SCH (08:41)
[2017-02-12] MEDS: TRAMADOL 50 MG TABLET. PO PRN ×2 (08:41→17:16)
[2017-02-12] MEDS: METOPROLOL SUCC 24HR ER 50 MG TAB.ER.24H. PO SCH (08:41)
[2017-02-12] MEDS: CHOLECALCIFEROL (VITAMIN D3) 1,000 UNIT TABLET PO SCH (08:41)
[2017-02-12] MEDS: MECLIZINE 25 MG TABLET PO SCH ×2 (08:43→13:43)
[2017-02-12] MEDS ORDERED: CHOL10003 PO (12:32)
[2017-02-12] MEDS ORDERED: CYAN10002 IM (12:34)
[2017-02-12] MEDS ORDERED: IPRA3AMP NEB (12:34)
[2017-02-12] MEDS ORDERED: MAG30ORA2 PO (12:35)
[2017-02-12] MEDS ORDERED: MAGN2400 PO (12:35)
[2017-02-12] MEDS ORDERED: METH29OI TP (12:36)
[2017-02-12] MEDS ORDERED: QUET50TA5 PO (12:46)
[2017-02-12] MEDS ORDERED: QUET25TA5 PO ×2 (12:46→12:47)
[2017-02-12] MEDS ORDERED: PNV1TABL78 PO (12:46)
[2017-02-12] MEDS ORDERED: TRAZ100T12 PO (12:50)
[2017-02-12] MEDS: PRENATAL MULTIVITAMIN TABLET. PO SCH (13:43)
[2017-02-12 15:27] VITALS: BP 113/68
[2017-02-12] MEDS ORDERED: QUEtiapine 25 MG TABLET. PO ONE (18:45)
[2017-02-12] MEDS: MECLIZINE 12.5 MG TABLET. PO SCH (19:49)
[2017-02-12] MEDS: traZODone 100 MG TABLET. PO PRN (19:57)
--- NOTE | 2017-02-12 21:00 | PDOC ---
Exam Davon Demential Exam: Davon Note: Please also refer to the separate dictated note~for this date of service dictated separately.~Patient seen individually. Discussed the patient with Nursing staff reviewed the chart.~Reviewed interim history and current functioning. Reviewed vital signs,~Labs/ Radiology~and current medications noted below. Continue current treatment with the changes noted in the dictated addendum note Assessment: Vital Signs: Vital Signs Date Time Temp Pulse Resp B/P Pulse Ox O2 Delivery O2 Flow Rate FiO2 02/12/17 20:23 99 Nasal Cannula 2.0 02/12/17 18:23 18 02/12/17 15:27 97.9 62 113/68 I&O Intake and Output 02/12/17 07:00 Intake Total 840 ml Balance 840 ml Intake Oral 840 ml Current Medications: Meds: Current Medications Acetaminophen (Tylenol) 650 mg PRN Q6HRS PRN PO PAIN / TEMP; Start 01/27/17 at 15:00; Status Cancel Multi-Ingredient Ointment (Analgesic [place]) 1 sae PRN QID PRN TP MUSCLE PAIN; Start 01/27/17 at 15:30 Al Hydroxide/Mg Hydroxide (Mylanta Plus Xs) 15 ml PRN AFTMEALHC PRN PO DYSPEPSIA; Start 01/27/17 at 15:30 Magnesium Hydroxide (Milk Of Magnesia) 2,400 mg PRN QHS PRN PO CONSTIPATION Last administered on 01/30/17 13:05; Start 01/27/17 at 15:30 Acetaminophen (Tylenol) 1,000 mg PRN Q6HRS PRN PO PAIN / TEMP; Start 01/27/17 at 16:00 Clonazepam (Klonopin) 0.25 mg PRN Q6HRS PRN PO ANXIETY / AGITATION; Start at 16:00 Clonazepam (Klonopin) 0.5 mg PRN Q6HRS PRN PO ANXIETY / AGITATION; Start at 16:00 Clopidogrel Bisulfate (Plavix) 75 mg DAILY PO Last administered on 02/12/17 08 :40; Start 01/28/17 at 09:00 Escitalopram Oxalate (Lexapro) 10 mg DAILY PO Last administered on 02/12/17 08 :40; Start 01/28/17 at 09:00 Finasteride (Proscar) 5 mg DAILY PO Last administered on 02/12/17 08:40; Start 01/28/17 at 09:00 Meclizine HCl (Antivert) 25 mg TID PO Last administered on 02/12/17 13:43; Start 01/27/17 at 21:00; Stop 02/12/17 at 19:47; Status DC Metoprolol Succinate (Toprol Xl) 50 mg DAILY PO Last administered on 02/12/17 08:41; Start 01/28/17 at 09:00 Pantoprazole Sodium (Protonix) 40 mg BID PO Last administered on 02/12/17 19: 39; Start 01/27/17 at 21:00 Tramadol HCl (Ultram) 50 mg PRN Q6HRS PRN PO PAIN Last administered on 17:16; Start 01/27/17 at 16:00 Ascorbic Acid (Vitamin C) 1,000 mg DAILY PO Last administered on 02/12/17 08: 41; Start 01/28/17 at 09:00 Ondansetron HCl (Zofran Odt) 4 mg PRN Q6HRS PRN PO NAUSEA/VOMITING; Start at 16:45 Non-Formulary Medication 5 mg QID NEB ; Start 01/27/17 at 17:00; Status UNV Vitamin D (Vitamin D3) 400 unit DAILY PO Last administered on 01/29/17 09:51; Start 01/28/17 at 09:00; Stop 01/30/17 at 09:52; Status DC Albuterol/ Ipratropium (Duoneb) 3 ml STK-MED ONCE .ROUTE ; Start 01/27/17 at 16: 35; Stop 01/27/17 at 16:36; Status DC Albuterol/ Ipratropium (Duoneb) 3 ml RTQID NEB Last administered on 02/12/17 20:22; Start 01/27/17 at 20:00 Timolol Maleate (Timoptic 0.5% Oph) 1 drop BID OU Last administered on 19:41; Start 01/28/17 at 09:00 Quetiapine Fumarate (SEROquel) 12.5 mg QHS PO Last administered on 01/29/17 19: 55; Start 01/29/17 at 21:00; Stop 01/30/17 at 19:03; Status DC Vitamin D (Vitamin D3) 1,000 unit DAILY PO Last administered on 01/30/17 09:57 ; Start 01/31/17 at 09:00; Stop 01/31/17 at 09:00; Status DC Cyanocobalamin (Vitamin B-12) 1,000 mcg [id number] IM Last administered on 12:15; Start 01/30/17 at 10:30 Prenat Multivit/ Wood Inspector/Iron/Folic Ac (Multivitamin ) 1 tab DAILYBFRLUN PO Last administered on 02/12/17 13:43; Start 01/30/17 at 11:30 Vitamin D (Vitamin D3) 1,000 unit DAILY PO Last administered on 02/12/17 08:41 ; Start 01/31/17 at 09:00 Quetiapine Fumarate (SEROquel) 25 mg QHS PO Last administered on 01/31/17 20:38 ; Start 01/30/17 at 21:00; Stop 02/01/17 at 18:07; Status DC Quetiapine Fumarate (SEROquel) 37.5 mg QHS PO Last administered on 02/03/17 19: 42; Start 02/01/17 at 21:00; Stop 02/04/17 at 12:14; Status DC Quetiapine Fumarate (SEROquel) 50 mg QHS PO Last administered on 02/11/17 19: 51; Start 02/04/17 at 21:00; Stop 02/12/17 at 18:39; Status DC Quetiapine Fumarate (SEROquel) 12.5 mg DAILY PO Last administered on 02/12/17 08:40; Start 02/05/17 at 09:00; Stop 02/12/17 at 18:52; Status DC Quetiapine Fumarate (SEROquel) 12.5 mg DAILYWLUN PO Last administered on 13:43; Start 02/06/17 at 12:00; Stop 02/12/17 at 18:39; Status DC Trazodone HCl (Desyrel) 50 mg PRN QHS PRN PO INSOMNIA, MAY REPEAT X1 Last administered on 02/05/17 19:42; Start 02/05/17 at 18:45; Stop 02/09/17 at 17:57 ; Status DC Trazodone HCl (Desyrel) 100 mg PRN QHS PRN PO INSOMNIA, MAY REPEAT X1 Last administered on 02/12/17 19:57; Start 02/09/17 at 18:00 Quetiapine Fumarate (SEROquel) 25 mg 1X ONCE PO Last administered on 18:35; Start 02/12/17 at 18:45; Stop 02/12/17 at 18:46; Status DC Quetiapine Fumarate (SEROquel) 75 mg QHS PO Last administered on 02/12/17 19: 39; Start 02/12/17 at 21:00 Quetiapine Fumarate (SEROquel) 25 mg DAILYWLUN PO ; Start 02/13/17 at 12:00 Quetiapine Fumarate (SEROquel) 25 mg DAILY PO ; Start 02/13/17 at 09:00 Meclizine HCl (Antivert) 25 mg TID PO Last administered on 02/12/17 19:49; Start 02/12/17 at 20:00 Active Scripts Active Reported Trazodone Hcl 100 Mg Tablet 1 Tab PO PRN QHS PRN Seroquel (Quetiapine Fumarate) 25 Mg Tablet 12.5 Tab PO DAILY08 Seroquel (Quetiapine Fumarate) 25 Mg Tablet 12.5 Mg PO DAILYWLUN Seroquel (Quetiapine Fumarate) 50 Mg Tablet 1 Tab PO QHS Multi Tablet (Pnv No.122/Iron/Folic Acid) 1 Each Tablet 1 Each PO DAILYBFRLUN Analgesic [place] (Methyl Salicylate/Menthol) 29 Gm Oint...g. 1 Sae TP PRN QID PRN Milk Of Magnesia (Magnesium Hydroxide) 2,400 Mg/10 Ml Oral.susp 2,400 Mg PO PRN QHS PRN Mag-Al Plus Xs Suspension (Mag Hydrox/Al Hydrox/Simeth) 30 Ml Oral.susp 15 Ml PO PRN AFTMEALHC PRN Duoneb 0.5-3(2.5) Mg/3 Ml (Albuterol/Ipratropium) 3 Ml Ampul.neb 3 Ml NEB RTQID Cyanocobalamin Injection (Cyanocobalamin (Vitamin B-12)) 1,000 Mcg/1 Ml Vial 1 Ml IM [id number] Vitamin D3 (Cholecalciferol (Vitamin D3)) 1,000 Unit Tablet 1 Tab PO DAILY Timoptic (Timolol Maleate) 10 Ml Drops 1 Drop EACHEYE BID [duoneb] 5 Mg NEB QID [Vit D3 400units] 400 Units PO Acetaminophen 500 Mg Tablet 1,000 Mg PO PRN Q6HRS PRN Pantoprazole Sodium 40 Mg Tablet.dr 40 Mg PO BID Zofran (Ondansetron Hcl) 4 Mg Tablet 4 Mg PO PRN Q6HRS PRN Tramadol Hcl (Tramadol HCl) 50 Mg Tablet 50 Mg PO PRN Q6HRS PRN Lexapro (Escitalopram Oxalate) 10 Mg Tablet 10 Mg PO DAILY Meclizine Hcl 25 Mg Tablet 25 Mg PO TID Clonazepam 0.5 Mg Tablet 0.25 Mg PO PRN Q6HRS PRN Clonazepam 0.5 Mg Tablet 0.5 Mg PO PRN Q6HRS PRN Vitamin C (Ascorbic Acid) 1,000 Mg Tablet 1,000 Mg PO DAILY Finasteride 5 Mg Tablet 5 Mg PO DAILY Metoprolol Tartrate 50 Mg Tablet 50 Mg PO DAILY Plavix (Clopidogrel Bisulfate) 75 Mg Tablet 75 Mg PO DAILY Diagnosis: Problems: (1) 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
--- NOTE | 2017-02-12 21:43 | PN ---
DATE: 02/11/2017 PSYCHIATRIC PROGRESS NOTE This is late entry of 02/11/2017, covers elements not covered in my initial note. SUBJECTIVE: Per nursing report, the patient has been fairly cooperative, somewhat hyperverbal as was evident as I met with him, but otherwise doing better. REVIEW OF SYSTEMS: Shortness of breath, on O2 supplements, impaired ambulation. No CV, , GI, ENT system symptoms on review. MENTAL STATUS EXAMINATION: Oriented reasonably to himself and situation. Speech as noted above, abstraction fair, computation impaired. He gets a little anxious at times. We will have social service staff complete mini mental status exam on 02/12/2017 since he refused it in the past, but for large part he seems reasonably oriented, somewhat anxious, dysphoric, but improving. LABORATORY DATA: Reviewed. IMPRESSION: Major depressive disorder in partial remission; anxiety disorder, unspecified; mood disorder, unspecified; cognitive disorder, unspecified. PLAN: There seemed some conflict between patient and his about her desire not to have him return home and his desire to return home. He may need transfer to an assisted living for sometime and certainly the psychologist can do further neuropsychological testing to assess his detailed capacity to make decisions, but at this time for the most part, he seems to be oriented enough and well aware of his circumstances to be able to make decisions for himself if that is what he chooses, though it would benefit him to have someone assist him with these decisions given some of his ongoing anxiety, which remains. We will have social service staffKristen coordinate all of this. We may also consider increasing the Seroquel depending on his mood symptoms and continue rest of the psychotropics as mentioned in my initial note. MAN Angelica MCKEON MD DR: JUAN/betsy JOB#: [id number] / [id number]
[2017-02-13] MEDS: TRAMADOL 50 MG TABLET. PO PRN (05:07)
[2017-02-13 05:41] VITALS: BP 100/53
[2017-02-13] MEDS: IPRATRPIUM/ALBUTEROL 0.5/2.5MG 3 ML NEBU. NEB SCH ×4 (08:00→20:46)
[2017-02-13] MEDS: CLOPIDOGREL BISULFATE 75 MG TABLET PO SCH (08:18)
[2017-02-13] MEDS: PANTOPRAZOLE 40 MG TABLET. PO SCH ×2 (08:18→19:23)
[2017-02-13] MEDS: ESCITALOPRAM 10 MG TABLET. PO SCH (08:18)
[2017-02-13] MEDS: MECLIZINE 12.5 MG TABLET. PO SCH ×3 (08:18→19:23)
[2017-02-13] MEDS: ASCORBIC ACID 500 MG TABLET PO SCH (08:18)
[2017-02-13] MEDS: FINASTERIDE 5 MG TABLET PO SCH (08:18)
[2017-02-13] MEDS: CHOLECALCIFEROL (VITAMIN D3) 1,000 UNIT TABLET PO SCH (08:18)
[2017-02-13] MEDS: METOPROLOL SUCC 24HR ER 50 MG TAB.ER.24H. PO SCH (08:19)
[2017-02-13] MEDS: QUEtiapine 25 MG TABLET. PO SCH ×3 (08:21→19:23)
[2017-02-13] MEDS: TIMOLOL 0.5% OPHTH SOLUTION 5ML BOTTLE. OU SCH ×2 (08:21→19:24)
[2017-02-13] MEDS: PRENATAL MULTIVITAMIN TABLET. PO SCH (12:31)
[2017-02-13 15:18] VITALS: BP 125/69
[2017-02-13] MEDS: traZODone 100 MG TABLET. PO PRN (19:25)
--- NOTE | 2017-02-13 19:55 | PN ---
DATE: 02/12/2017 PSYCHIATRIC PROGRESS NOTE This is late entry of 02/12/2017, covers elements not covered in my initial note. SUBJECTIVE: Overall, the patient remains somewhat anxious, at times a little labile, but redirects. Despite this, he is reasonably well oriented to place and situation. I discussed with Kristen, social service staff at length about transition to a lower level of care later this week. REVIEW OF SYSTEMS: Shortness of breath, on 2 liters oxygen, impaired ambulation with a walker. No CV, , eye, ENT system symptoms on review. MENTAL STATUS EXAMINATION: Oriented to himself and situation. Speech is somewhat hyperverbal as before. Abstraction fair, computation impaired, language function intact. Memory is reasonable. No active suicidal or homicidal ideation. LABORATORY DATA: Reviewed. IMPRESSION: Major depressive disorder, recurrent, in partial remission; anxiety disorder, unspecified; cognitive disorder, unspecified. PLAN: Increase Seroquel from 12.5 mg twice a day, 50 at night to 25 mg twice a day, 75 at night, continue Klonopin p.r.n., Lexapro 10 mg a day, trazodone at bedtime. Adjust further as clinically indicated. JIM MCKEON MD DR: JUAN/betsy JOB#: [id number] / [id number]
--- NOTE | 2017-02-13 21:03 | PDOC ---
Exam Davon Demential Exam: Davon Note: Please also refer to the separate dictated note~for this date of service dictated separately.~Patient seen individually. Discussed the patient with Nursing staff reviewed the chart.~Reviewed interim history and current functioning. Reviewed vital signs,~Labs/ Radiology~and current medications noted below. Continue current treatment with the changes noted in the dictated addendum note Assessment: Vital Signs: Vital Signs Date Time Temp Pulse Resp B/P Pulse Ox O2 Delivery O2 Flow Rate FiO2 02/13/17 20:47 100 Nasal Cannula 2.0 02/13/17 15:18 97.7 71 18 125/69 I&O Intake and Output 02/13/17 07:00 Intake Total 1200 ml Balance 1200 ml Intake Oral 1200 ml # Voids 2 Current Medications: Meds: Current Medications Acetaminophen (Tylenol) 650 mg PRN Q6HRS PRN PO PAIN / TEMP; Start 01/27/17 at 15:00; Status Cancel Multi-Ingredient Ointment (Analgesic [place]) 1 sae PRN QID PRN TP MUSCLE PAIN; Start 01/27/17 at 15:30 Al Hydroxide/Mg Hydroxide (Mylanta Plus Xs) 15 ml PRN AFTMEALHC PRN PO DYSPEPSIA; Start 01/27/17 at 15:30 Magnesium Hydroxide (Milk Of Magnesia) 2,400 mg PRN QHS PRN PO CONSTIPATION Last administered on 01/30/17 13:05; Start 01/27/17 at 15:30 Acetaminophen (Tylenol) 1,000 mg PRN Q6HRS PRN PO PAIN / TEMP; Start 01/27/17 at 16:00 Clonazepam (Klonopin) 0.25 mg PRN Q6HRS PRN PO ANXIETY / AGITATION; Start at 16:00 Clonazepam (Klonopin) 0.5 mg PRN Q6HRS PRN PO ANXIETY / AGITATION; Start at 16:00 Clopidogrel Bisulfate (Plavix) 75 mg DAILY PO Last administered on 02/13/17 08 :18; Start 01/28/17 at 09:00 Escitalopram Oxalate (Lexapro) 10 mg DAILY PO Last administered on 02/13/17 08 :18; Start 01/28/17 at 09:00 Finasteride (Proscar) 5 mg DAILY PO Last administered on 02/13/17 08:18; Start 01/28/17 at 09:00 Meclizine HCl (Antivert) 25 mg TID PO Last administered on 02/12/17 13:43; Start 01/27/17 at 21:00; Stop 02/12/17 at 19:47; Status DC Metoprolol Succinate (Toprol Xl) 50 mg DAILY PO Last administered on 02/13/17 08:19; Start 01/28/17 at 09:00 Pantoprazole Sodium (Protonix) 40 mg BID PO Last administered on 02/13/17 19: 23; Start 01/27/17 at 21:00 Tramadol HCl (Ultram) 50 mg PRN Q6HRS PRN PO PAIN Last administered on 05:07; Start 01/27/17 at 16:00 Ascorbic Acid (Vitamin C) 1,000 mg DAILY PO Last administered on 02/13/17 08: 18; Start 01/28/17 at 09:00 Ondansetron HCl (Zofran Odt) 4 mg PRN Q6HRS PRN PO NAUSEA/VOMITING; Start at 16:45 Non-Formulary Medication 5 mg QID NEB ; Start 01/27/17 at 17:00; Status UNV Vitamin D (Vitamin D3) 400 unit DAILY PO Last administered on 01/29/17 09:51; Start 01/28/17 at 09:00; Stop 01/30/17 at 09:52; Status DC Albuterol/ Ipratropium (Duoneb) 3 ml STK-MED ONCE .ROUTE ; Start 01/27/17 at 16: 35; Stop 01/27/17 at 16:36; Status DC Albuterol/ Ipratropium (Duoneb) 3 ml RTQID NEB Last administered on 02/13/17 20:46; Start 01/27/17 at 20:00 Timolol Maleate (Timoptic 0.5% [facility]) 1 drop BID OU Last administered on 19:24; Start 01/28/17 at 09:00 Quetiapine Fumarate (SEROquel) 12.5 mg QHS PO Last administered on 01/29/17 19: 55; Start 01/29/17 at 21:00; Stop 01/30/17 at 19:03; Status DC Vitamin D (Vitamin D3) 1,000 unit DAILY PO Last administered on 01/30/17 09:57 ; Start 01/31/17 at 09:00; Stop 01/31/17 at 09:00; Status DC Cyanocobalamin (Vitamin B-12) 1,000 mcg [id number] IM Last administered on 12:15; Start 01/30/17 at 10:30 Prenat Multivit/ Ndt Inspector/Iron/Folic Ac (Multivitamin ) 1 tab DAILYBFRLUN PO Last administered on 02/13/17 12:31; Start 01/30/17 at 11:30 Vitamin D (Vitamin D3) 1,000 unit DAILY PO Last administered on 02/13/17 08:18 ; Start 01/31/17 at 09:00 Quetiapine Fumarate (SEROquel) 25 mg QHS PO Last administered on 01/31/17 20:38 ; Start 01/30/17 at 21:00; Stop 02/01/17 at 18:07; Status DC Quetiapine Fumarate (SEROquel) 37.5 mg QHS PO Last administered on 02/03/17 19: 42; Start 02/01/17 at 21:00; Stop 02/04/17 at 12:14; Status DC Quetiapine Fumarate (SEROquel) 50 mg QHS PO Last administered on 02/11/17 19: 51; Start 02/04/17 at 21:00; Stop 02/12/17 at 18:39; Status DC Quetiapine Fumarate (SEROquel) 12.5 mg DAILY PO Last administered on 02/12/17 08:40; Start 02/05/17 at 09:00; Stop 02/12/17 at 18:52; Status DC Quetiapine Fumarate (SEROquel) 12.5 mg DAILYWLUN PO Last administered on 13:43; Start 02/06/17 at 12:00; Stop 02/12/17 at 18:39; Status DC Trazodone HCl (Desyrel) 50 mg PRN QHS PRN PO INSOMNIA, MAY REPEAT X1 Last administered on 02/05/17 19:42; Start 02/05/17 at 18:45; Stop 02/09/17 at 17:57 ; Status DC Trazodone HCl (Desyrel) 100 mg PRN QHS PRN PO INSOMNIA, MAY REPEAT X1 Last administered on 02/13/17 19:25; Start 02/09/17 at 18:00 Quetiapine Fumarate (SEROquel) 25 mg 1X ONCE PO Last administered on 18:35; Start 02/12/17 at 18:45; Stop 02/12/17 at 18:46; Status DC Quetiapine Fumarate (SEROquel) 75 mg QHS PO Last administered on 02/13/17 19: 23; Start 02/12/17 at 21:00 Quetiapine Fumarate (SEROquel) 25 mg DAILYWLUN PO Last administered on 12:31; Start 02/13/17 at 12:00 Quetiapine Fumarate (SEROquel) 25 mg DAILY PO Last administered on 02/13/17 08 :21; Start 02/13/17 at 09:00 Meclizine HCl (Antivert) 25 mg TID PO Last administered on 02/13/17 19:23; Start 02/12/17 at 20:00 Active Scripts Active Reported Trazodone Hcl 100 Mg Tablet 1 Tab PO PRN QHS PRN Seroquel (Quetiapine Fumarate) 25 Mg Tablet 12.5 Tab PO DAILY08 Seroquel (Quetiapine Fumarate) 25 Mg Tablet 12.5 Mg PO DAILYWLUN Seroquel (Quetiapine Fumarate) 50 Mg Tablet 1 Tab PO QHS Multi Tablet (Pnv No.122/Iron/Folic Acid) 1 Each Tablet 1 Each PO DAILYBFRLUN Analgesic [place] (Methyl Salicylate/Menthol) 29 Gm Oint...g. 1 Sae TP PRN QID PRN Milk Of Magnesia (Magnesium Hydroxide) 2,400 Mg/10 Ml Oral.susp 2,400 Mg PO PRN QHS PRN Mag-Al Plus Xs Suspension (Mag Hydrox/Al Hydrox/Simeth) 30 Ml Oral.susp 15 Ml PO PRN AFTMEALHC PRN Duoneb 0.5-3(2.5) Mg/3 Ml (Albuterol/Ipratropium) 3 Ml Ampul.neb 3 Ml NEB RTQID Cyanocobalamin Injection (Cyanocobalamin (Vitamin B-12)) 1,000 Mcg/1 Ml Vial 1 Ml IM [id number] Vitamin D3 (Cholecalciferol (Vitamin D3)) 1,000 Unit Tablet 1 Tab PO DAILY Timoptic (Timolol Maleate) 10 Ml Drops 1 Drop EACHEYE BID [duoneb] 5 Mg NEB QID [Vit D3 400units] 400 Units PO Acetaminophen 500 Mg Tablet 1,000 Mg PO PRN Q6HRS PRN Pantoprazole Sodium 40 Mg Tablet.dr 40 Mg PO BID Zofran (Ondansetron Hcl) 4 Mg Tablet 4 Mg PO PRN Q6HRS PRN Tramadol Hcl (Tramadol HCl) 50 Mg Tablet 50 Mg PO PRN Q6HRS PRN Lexapro (Escitalopram Oxalate) 10 Mg Tablet 10 Mg PO DAILY Meclizine Hcl 25 Mg Tablet 25 Mg PO TID Clonazepam 0.5 Mg Tablet 0.25 Mg PO PRN Q6HRS PRN Clonazepam 0.5 Mg Tablet 0.5 Mg PO PRN Q6HRS PRN Vitamin C (Ascorbic Acid) 1,000 Mg Tablet 1,000 Mg PO DAILY Finasteride 5 Mg Tablet 5 Mg PO DAILY Metoprolol Tartrate 50 Mg Tablet 50 Mg PO DAILY Plavix (Clopidogrel Bisulfate) 75 Mg Tablet 75 Mg PO DAILY Diagnosis: Problems: (1) 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
[2017-02-14] MEDS: IPRATRPIUM/ALBUTEROL 0.5/2.5MG 3 ML NEBU. NEB SCH ×2 (05:45→10:42)
[2017-02-14 07:14] VITALS: BP 145/88
[2017-02-14] MEDS: ESCITALOPRAM 10 MG TABLET. PO SCH (07:59)
[2017-02-14] MEDS: TIMOLOL 0.5% OPHTH SOLUTION 5ML BOTTLE. OU SCH (07:59)
[2017-02-14] MEDS: QUEtiapine 25 MG TABLET. PO SCH ×2 (08:00→12:24)
[2017-02-14] MEDS: FINASTERIDE 5 MG TABLET PO SCH (08:00)
[2017-02-14] MEDS: CLOPIDOGREL BISULFATE 75 MG TABLET PO SCH (08:00)
[2017-02-14] MEDS: PANTOPRAZOLE 40 MG TABLET. PO SCH (08:00)
[2017-02-14] MEDS: CHOLECALCIFEROL (VITAMIN D3) 1,000 UNIT TABLET PO SCH (08:00)
[2017-02-14 08:01] VITALS: BP 145/88
[2017-02-14] MEDS: MECLIZINE 12.5 MG TABLET. PO SCH ×2 (08:01→12:25)
[2017-02-14] MEDS: METOPROLOL SUCC 24HR ER 50 MG TAB.ER.24H. PO SCH (08:01)
[2017-02-14] MEDS: ASCORBIC ACID 500 MG TABLET PO SCH (08:01)
[2017-02-14] MEDS: TRAMADOL 50 MG TABLET. PO PRN (08:59)
[2017-02-14] MEDS: PRENATAL MULTIVITAMIN TABLET. PO SCH (12:24)
--- NOTE | 2017-02-14 20:27 | PN ---
DATE: 02/13/2017 PSYCHIATRIC PROGRESS NOTE This is late entry of 02/13/2017, covers elements not covered in my initial note. SUBJECTIVE: The patient has been isolated, spending much time in his room, less hyperverbal. REVIEW OF SYSTEMS: Shortness of breath, on O2 supplement; impaired ambulation with a walker. No CV, , GI, eye, ENT system symptoms on review. MENTAL STATUS EXAMINATION: Reasonably oriented. Speech coherent, still somewhat hyperverbal at times, but better than before, abstraction fair, computation impaired, language function intact. Mood and affect less labile. LABORATORY DATA: Reviewed. 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 PLAN: Continue current psychotropics. Seroquel was recently increased and we will maintain at current dosage. Possible transition to a lower level of care on 02/14/2017. MAN Angelica MCKEON MD DR: JUAN/betsy JOB#: [id number] / [id number]
--- NOTE | 2017-02-16 12:58 | DS ---
DATE OF DISCHARGE: 02/14/2017 DISCHARGE SUMMARY/PSYCHIATRIC PROGRESS NOTE This is a late entry for 02/14/2017, covers elements not covered in my initial note. REASON FOR ADMISSION: Please refer to the admission history for details. Briefly, the patient is an 81-year-old male admitted from home, referred by his outpatient primary care provider on account of worsening hallucinations, both auditory and visual worsening over the last month. The patient was becoming violent with his , agitated, depressed, anxious, and had some short term memory deficits. He had failed outpatient psychiatric interventions resulting in this referral. SIGNIFICANT FINDINGS AND CLINICAL COURSE: Following admission, the patient was seen daily individually by myself, followed medically per Dr. Murphy/Dr. Lee. The patient was quite anxious, hyperverbal, but fairly oriented. Insight, however, was limited with respect to the agitation, aggression he had with his at home. Adjustments were made in his psychotropics and he seemed to respond to a combination of Klonopin p.r.n., Lexapro 10 mg a day, Seroquel 25 mg a.m. and noon and 75 mg at bedtime, trazodone 100 at bedtime p.r.n., may repeat x 1 for insomnia. He remains somewhat isolated at times, but less hyperverbal at discharge. No active suicidal or homicidal ideation at discharge. Prior to discharge on 02/14/2017, temperature 97.3, BP 145/88, pulse 78, respirations 16, O2 sats 92% on 2 L. REVIEW OF SYSTEMS: Shortness of breath on O2 supplements. Impaired ambulation with a walker. No CV, , eye, ENT system symptoms on review. MENTAL STATUS EXAM: Reasonably oriented. Speech coherent, less pressured. Abstraction fair. Computation impaired. Language function intact. Attention span, short. Mood and affect, lability was improved. No suicidal or homicidal ideation at discharge. FINAL DIAGNOSES: Major depressive disorder with psychotic features, in partial remission; anxiety disorder, unspecified; cognitive disorder, unspecified. Rest diagnoses, unchanged from admission. DISCHARGE MEDICATIONS: Please refer to the [facility]. DISCHARGE INSTRUCTIONS: Outpatient psychiatric and medical followup at the facility. He was transferred to at discharge. Time for discharge day management greater than 30 minutes. MAN Angelica MCKEON MD DR: JUAN/betsy JOB#: [id number] / [id number]
== END 2017-02-14 16:05 | disposition home health service (06) | DRG 884 ==
LOC: ER 13:25 → GEROPSY 15:05
PROVIDERS: ADMIT Psychiatry & Neurology Psychiatry; ATTEND Psychiatry & Neurology Psychiatry
DX: F01.51 Vascular dementia, unspecified severity, with behavioral disturbance (principal); F33.3 Major depressive disorder, recurrent, severe with psychotic symptoms; F02.81 Dementia in other diseases classified elsewhere, unspecified severity, with behavioral disturbance; I69.354 Hemiplegia and hemiparesis following cerebral infarction affecting left non-dominant side; E78.5 Hyperlipidemia, unspecified; F17.210 Nicotine dependence, cigarettes, uncomplicated; F41.9 Anxiety disorder, unspecified; F63.9 Impulse disorder, unspecified; G30.9 Alzheimer's disease, unspecified; I50.9 Heart failure, unspecified; I11.0 Hypertensive heart disease with heart failure; K21.9 Gastro-esophageal reflux disease without esophagitis; N40.0 Benign prostatic hyperplasia without lower urinary tract symptoms; J44.9 Chronic obstructive pulmonary disease, unspecified; Z66 Do not resuscitate; K59.00 Constipation, unspecified; M54.5 Low back pain; G62.9 Polyneuropathy, unspecified; G89.29 Other chronic pain; F10.10 Alcohol abuse, uncomplicated; Z82.49 Family history of ischemic heart disease and other diseases of the circulatory system; Z83.3 Family history of diabetes mellitus; Z79.899 Other long term (current) drug therapy; Z82.3 Family history of stroke; Z85.6 Personal history of leukemia; Z99.81 Dependence on supplemental oxygen; Z87.11 Personal history of peptic ulcer disease
CPT/HCPCS: 29125; 36415; 70360; 70450; 72050; 73130; 80048; 80053; 80061; 81001; 82306; 82607; 83036; 83540; 83550; 83735; 83880; 84436; 84443; 84480; 84484; 85008; 85027; 86592; 86593; 93005; 94640; 94760; G0481; J3420; J7620; J8597; 99285-25